=== PATIENT | female | born 1940 | race Caucasian/White ===

== ENCOUNTER 2023-09-04 14:43 | Outpatient (RCR) | payer MEDICARE, OTHER, SELFPAY | END 2023-09-27 14:00 | disposition home or self-care (01) | LOC: MM 14:43 | PROVIDERS: PCP Family Medicine; Visit Provider Internal Medicine | DX: Z51.81 Encounter for therapeutic drug level monitoring (principal); Z79.01 Long term (current) use of anticoagulants; I48.20 Chronic atrial fibrillation, unspecified | CPT/HCPCS: 85610; G0463 ==

== ENCOUNTER 2023-09-30 00:17 | Outpatient (RCR) | payer MEDICARE, OTHER, SELFPAY | END 2023-10-29 17:58 | disposition home or self-care (01) | LOC: MM 00:17 | PROVIDERS: PCP Family Medicine; Visit Provider Internal Medicine | DX: Z51.81 Encounter for therapeutic drug level monitoring (principal); Z79.01 Long term (current) use of anticoagulants; I48.20 Chronic atrial fibrillation, unspecified | CPT/HCPCS: 85610; G0463 ==

== ENCOUNTER 2023-10-30 04:37 | Outpatient (RCR) | payer MEDICARE, OTHER, SELFPAY | END 2023-11-29 11:54 | disposition home or self-care (01) | LOC: MM 04:37 | PROVIDERS: PCP Family Medicine; Visit Provider Internal Medicine | DX: Z51.81 Encounter for therapeutic drug level monitoring (principal); Z79.01 Long term (current) use of anticoagulants; I48.20 Chronic atrial fibrillation, unspecified | CPT/HCPCS: 85610; G0463 ==

== ENCOUNTER 2023-12-02 03:30 | Outpatient (RCR) | payer MEDICARE, OTHER, SELFPAY | END 2023-12-27 11:07 | disposition home or self-care (01) | LOC: MM 03:30 | PROVIDERS: PCP Family Medicine; Visit Provider Internal Medicine | DX: Z51.81 Encounter for therapeutic drug level monitoring (principal); Z79.01 Long term (current) use of anticoagulants; I48.20 Chronic atrial fibrillation, unspecified | CPT/HCPCS: 85610; G0463 ==

== ENCOUNTER 2023-12-30 00:31 | Outpatient (RCR) | payer MEDICARE, OTHER, SELFPAY | END 2024-01-29 10:12 | disposition home or self-care (01) | LOC: MM 00:31 | PROVIDERS: PCP Family Medicine; Visit Provider Internal Medicine | DX: Z51.81 Encounter for therapeutic drug level monitoring (principal); Z79.01 Long term (current) use of anticoagulants; I48.20 Chronic atrial fibrillation, unspecified | CPT/HCPCS: 85610; G0463 ==

== ENCOUNTER 2024-01-30 00:37 | Outpatient (RCR) | payer MEDICARE, OTHER, SELFPAY | END 2024-02-28 10:17 | disposition home or self-care (01) | LOC: MM 00:37 | PROVIDERS: PCP Family Medicine; Visit Provider Internal Medicine | DX: Z51.81 Encounter for therapeutic drug level monitoring (principal); Z79.01 Long term (current) use of anticoagulants; I48.20 Chronic atrial fibrillation, unspecified | CPT/HCPCS: 85610; G0463 ==

== ENCOUNTER 2024-03-02 01:43 | Outpatient (RCR) | payer MEDICARE, OTHER, SELFPAY | END 2024-03-30 23:57 | disposition home or self-care (01) | LOC: MM 01:43 | PROVIDERS: PCP Family Medicine; Visit Provider Internal Medicine | DX: Z51.81 Encounter for therapeutic drug level monitoring (principal); Z79.01 Long term (current) use of anticoagulants; I48.20 Chronic atrial fibrillation, unspecified | CPT/HCPCS: 85610; G0463 ==

== ENCOUNTER 2024-03-10 20:33 | Emergency (ER) | payer MEDICARE, OTHER, SELFPAY ==
--- OUTSIDE RECORDS SUMMARY | 2024-03-10 20:44 | XMS_ITS | CCD ---
Author Organization [facility] Care Team Providers Care Substance Addiction Coordinator Name Role Phone JOSE MANUEL BEAUCHAMP Unavailable Unavailable MILTONEREEMRE Harry Unavailable Unavailabl e MiltonereEmre harry Unavailable Unavailable Unavailable MINDY, DR EMRE Naqvi Primary Care Unavailable BURNETT, DR STACY Herbert Admitting Unavailable BURNETT, DR STACY Herbert Attending Unavailable BURNETT, DR STACY Herbert Consulting Unavailable LAKSHMI, MICHELLE Consulting Unavailable DERROW, ROB Consulting Unavailable NADERER, DR EMRE Naqvi Admitting Unavailable NADERER, DR EMRE Naqvi Attending Unavailable NADERER, DR EMRE Naqvi Primary Care Unavailable NADERER, DR EMRE Naqvi Consulting Unavailable NADERER, DR EMRE Naqvi Admitting Unavailable NADERER, DR EMRE Naqvi Attending Unavailable NADERER, DR EMRE Naqvi Primary Care Unavailable NADERER, DR EMRE Naqvi Consulting Unavailable Naderer, Dr. Emre Sandoval Primary Care Anabelle Benitez II, Hero Grover Referring Unav ailable Sofía II, Hero Grover Attending Unav ailable Emre Guillen MD Primary Care Provider HERO BENITEZ Attending Unavailable NADEREEMRE Harry Primary Care Unavailabl e RIVER, HERNAN N Referring Unavailable NADERER, EMRE Primary Care Unavailable RIVERHERNAN Attending Unavailable NADEREEMRE Harry Referring Unavailable NADEREPiero, EMRE Primary Care Unavailable NADEREPiero, EMRE Primary Care Unavailable HERNAN HOLMAN N Attending Unavailable NADEREEMRE Harry Referring Unavailable NADERER, EMRE Primary Care Unavailable PREET BRANNON Attending Unavailable APLPREET RICHARD Referring Unavailable NADERER, EMRE Attending Unavailable MALONE, DARYL Attending Unavailable NADERER, EMRE Attending Unavailable LINDY MINA Attending Unavailable MALONEDARYL Referring Unavailable NADERER, EMRE Attending Unavailable NADERER, EMRE Attending Unavailable NADERER, EMRE Attending Unavailable Allergies Allergy Classification Reported Allergen(s) Allergy Type Date of Onset Reaction(s) Facility (10 sources) Sulfonamides (Antibiotic); Translations: [Sulfa Drugs] Allergy to drug (finding) Anaphylaxis -[facility] y [facility] DO Work Phone: (1 source) Sulfonamides (Antibiotic) Drug allergy (disorder) [facility] (3 sources) Sulfonamides (Antibiotic); Translations: [SULFA (SULFONAMIDE ANTIBIOTICS)] Drug Allergy 8 Anaphylaxis, Dizziness [facility] (1 source) ADHESIVE TAPE-SILICONES; Translations: [ADHESIVE TAPE-SILICONES] Propensity to adverse reactions to drug (disorder) 8 [facility] Medications Current Medications Medication Drug Class(es) Dates Sig (Normalized) Sig (Original) [id number] actuat albuterol 0.09 mg/actuat metered dose inhaler (11 sources) beta2-Adrenergic Agonist take 2 puff(s) by inhalation every four hours albuterol 90 mcg/actuation inhaler Inhale 2 puffs every 4 hours if needed. 0 Active Albuterol Sulfat e HFA 108 (90 Base) MCG/ACT Inhalation Aerosol Solution as directed Quantity: 0 Refills: 0 Ordered: 09-May-2021 DO Active Albuterol Sulfat e HFA 108 (90 Base) MCG/ACT Inhalation Aerosol Solution as directed Quantity: 0 Refills: 0 Ordered: 09-May-2021 DO Active amLODIPine 2.5 mg oral tablet (13 sources) Dihydropyridine Calcium Channel Edenilson Start: 05-14-2023 take 1 tablet by mouth once daily amLODIPine (Norvasc) 2.5 mg tablet Indications: Primary hypertension , Hypertension, unspecified type Take 1 tablet (2.5 mg) by mouth once daily. 90 tablet 3 05/14/2023 Active Start: 05-09-2021 End: 05-14-2023 take 1 tablet by mouth once daily amLODIPine (Norvasc) 2.5 mg tablet Indications: Hypertension, unspecified type Take 1 tablet by mouth once daily 90 tablet 3 04/22/2023 05/14/2023 Discontinued (Reorder) aspirin 81 mg delayed release oral tablet (11 sources) Platelet Aggregation Inhibitor, Nonsteroidal Anti-inflammatory Drug take 1 tablet by mouth two times weekly aspirin 81 mg EC tablet Take 1 tablet (81 mg) by mouth 2 times a week. 0 Active carbidopa 25 mg / levodopa 100 mg oral tablet (11 sources) Aromatic Amino Acid Decarboxylation Inhibitor, Aromatic Amino Acid take 1 tablet by mouth three times daily carbidopa-levodopa (Sinemet) 25-100 mg tablet Take 1 tablet by mouth 3 times a day. 0 Active fenofibrate 145 mg oral tablet (11 sources) Peroxisome Proliferator Receptor alpha Agonist take 1 tablet by mouth once daily at bedtime fenofibrate (Tricor) 145 mg tablet Take 1 tablet (145 mg) by mouth once daily at bedtime. 0 Active ferrous sulfate 134 mg oral tablet (1 source) take 1 tablet by mouth once daily at mealtime ferrous sulfate 134 mg (27 mg iron) tablet Take 1 tablet (27 mg) by mouth once daily with a meal. Do not crush, chew, or split. 0 Active FLUoxetine 20 mg oral capsule (4 sources) Serotonin Reuptake Inhibitor Start: 12-17-19 take 1 capsule by mouth once daily FLUoxetine (PROzac) 20 mg capsule Take 1 capsule (20 mg) by mouth once daily. 0 12/16/2022 Active take 1 capsule by mouth once jaspreet ly FLUoxetine HCl - 20 MG Oral Capsule TAKE 1 CAPSULE Daily Quantity: 90 Refills: 1 Ordered: 15-May-2022 DO Active furosemide 40 mg oral tablet (4 sources) Loop Diuretic Start: 10-29-2022 take 1 tablet by mouth once daily furosemide (Lasix) 40 mg tablet Take 1 tablet (40 mg) by mouth once daily. 0 10/29/2022 Active take 1 tablet by mouth once miguel y Furosemide 40 MG Oral Tablet TAKE 1 TABLET DAILY. Quantity: 30 Refills: 0 Ordered: 15-May-2022 DO Active gabapentin 600 mg oral tablet (11 sources) Anti-epileptic Agent take 1 tablet by mouth twice daily gabapentin (Neurontin) 600 mg tablet Take 1 tablet (600 mg) by mouth 2 times a day. 0 Active take 1 tablet by mouth three maggi es daily Gabapentin 600 MG Oral Tablet TAKE 1 TABLET 3 TIMES DAILY. Quantity: 0 Refills: 0 Ordered: 09-May-2021 DO Active glipiZIDE 10 mg oral tablet (12 sources) Sulfonylurea End: 05-14-2023 take 1 tablet by mouth once daily glipiZIDE (Glucotrol) 10 mg tablet Take 1 tablet (10 mg) by mouth once daily. 0 05/14/2023 Discontinued (Discontinued by another clinician) take 1 tablet by mouth once miguel y glipiZIDE XL (Glucotrol XL) 2.5 mg 24 hr tablet Take 1 tablet (2.5 mg) by mouth once daily. Do not crush, chew, or split. 0 Active take 2 tablets by mo uth in the morning, then take 1 tablet by mouth in the evening glipiZIDE 10 MG Oral Tablet take 2 table ts am and one tablet pm Quantity: 0 Refills: 0 Ordered: 09-May-2021 DO Active levothyroxine sodium 0.125 mg oral capsule (11 sources) l-Thyroxine take 1 tablet by mouth once daily levothyroxine (Tirosint) 125 mcg capsule Take 1 tablet by mouth once daily. 0 Active loratadine 10 mg oral tablet (1 source) take 1 tablet by mouth every twenty-four hours as needed loratadine (Claritin) 10 mg tablet Take 1 tablet (10 mg) by mouth once daily as needed for allergies. 0 Active meloxicam 15 mg oral tablet (11 sources) Nonsteroidal Anti-inflammatory Drug take 1 tablet by mouth once daily meloxicam (Mobic) 15 mg tablet Take 1 tablet (15 mg) by mouth once daily. 0 Active 24 hr metFORMIN hydrochloride 500 mg extended release oral tablet (11 sources) Biguanide take 1 tablet by mouth twice daily metFORMIN XR 500 mg 24 hr tablet Take 1 tablet (500 mg) by mouth 2 times a day. 0 Active nitroglycerin 0.4 mg sublingual tablet (12 sources) Nitrate Vasodilator Start: 05-14-20 nitroglycerin (Nitrostat) 0.4 mg SL tablet Indications: Status post angioplasty Place 1 tablet (0.4 mg) under the tongue every 5 minutes if needed for chest pain. 90 tablet 3 05/14/2023 Active End: 05-14-2023 nitroglycerin (Nitrostat) 0. [address] 1 tablet (0.4 mg) under the tongue every 5 minutes if needed for chest pain. 0 05/14/2023 Discontinued (Reorder) pioglitazone 45 mg oral tablet (4 sources) Peroxisome Proliferator Receptor alpha Agonist, Peroxisome Proliferator Receptor gamma Agonist, Thiazolidinedione Start: 10-29-2022 take 1 tablet by mouth once daily pioglitazone (Actos) 45 mg tablet Take 1 tablet (45 mg) by mouth once daily. 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 90 tablet 3 05/14/2023 05/13/2024 Active simvastatin 20 mg oral tablet (11 sources) HMG-CoA Reductase Inhibitor take 1 tablet by mouth once daily at bedtime simvastatin (Zocor) 20 mg tablet Take 1 tablet (20 mg) by mouth once daily at bedtime. 0 Active traMADol hydrochloride 50 mg oral tablet (11 sources) Opioid Agonist End: 05-14-2023 take 1 tablet by mouth twice daily traMADol (Ultram) 50 mg tablet Take 1 tablet (50 mg) by mouth 2 times a day. 0 05/14/2023 Discontinued (Discontinued by another clinician) traZODone hydrochloride 50 mg oral tablet (11 sources) Serotonin Reuptake Inhibitor traZODone (Desyrel) 50 mg tablet Take 1 tablet (50 mg) by mouth see administration instructions. As directed 0 Active traZODone HCl - 50 MG Oral Tablet take as needed Quantity: 0 Refills: 0 Ordered: 09-May-2021 DO Active vitamin b12 1 mg oral tablet (1 source) Vitamin B12 cyanocobalamin ( Vitamin B-12) 1,000 mcg tablet Take 100 mcg by mouth once daily. 0 Active Completed/Discontinued Medications Medication Drug Class(es) Dates Sig (Normalized) Sig (Original) cholecalciferol 0.025 mg oral capsule (3 sources) Vitamin D take 1 capsule by mouth once daily Vitamin D3 25 MCG (1000 UT) Oral Capsule TAKE 1 CAPSULE Daily Quantity: 0 Refills: 0 Ordered: 15-May-2022 DO Active docusate sodium 100 mg oral tablet (3 sources) take 1 tablet by mouth once daily Stool Softener 100 MG Oral Tablet TAKE 1 TABLET DAILY DIRECTED. Quantity: 0 Refills: 0 Ordered: 15-May-2022 DO Active ferrous gluconate 240 mg oral tablet (3 sources) take 1 tablet by mouth once daily Iron 240 (27 Fe) MG Oral Tablet TAKE 1 TABLET DAILY DIRECTED. Quantity: 0 Refills: 0 Ordered: 15-May-2022 DO Active hydrocortisone 25 mg/ml topical cream (7 sources) Corticosteroid Hydrocortisone 2 .5 % External Cream APPLY TO AFFECTED AREA TWICE DAILY DIRECTED. Quantity: 0 Refills: 0 Ordered: 09-May-2021 DO Active lisinopril 10 mg oral tablet (11 sources) Angiotensin Converting Enzyme Inhibitor Start: 05-09-2021 take 1 tablet by mouth once daily Lisinopril 10 MG Oral Tablet TAKE 1 TABLET DAILY. Quantity: 90 Refills: 3 Ordered: 15-May-2022 Hero Benitez MD Start : 09-May-2021 Active Vitamin B 12 TABS (10 sources) Vitamin B 12 TAB S TAKE 1 TABLET DAILY. Quantity: 0 Refills: 0 Ordered: 09-May-2021 DO Active Problems Active Problems Problem Classification Problem Date Documented Da te Episodic/Chronic Acute myocardial infarction (1 source) Non-ST elevation (NSTEMI) myocardial infarction; Translations: [NON-ST ELEVATION MYOCARDIAL INFARCT] Onset: 05-08-2021 Chronic Asthma (12 sources) Asthma; Translations: [Asthma, unspecified type, unspecified] Onset: 05-08-2021 04-22-2023 Chronic Cancer of colon (1 source) Malignant neoplasm of transverse colon; Translations: [Malignant neoplasm of transverse colon] Onset: 05-02-2018 Chronic Cardiac dysrhythmias (12 sources) Persistent atrial fibrillation; Translations: [Atrial fibrillation] Onset: 04-22-2023 05-14-2023 Chronic Chronic kidney disease (1 source) Chronic kidney disease, stage 2 (mild); Translations: [CHRONIC KIDNEY DISEASE STAGE 2 MILD] Onset: 05-08-2021 Chronic Coronary atherosclerosis and other heart disease (20 sources) Old myocardial infarction; Translations: [Old myocardial infarction] Onset: 05-08-2021 05-14-2023 Chronic Deficiency and other anemia (1 source) Iron deficiency anemia secondary to blood loss (chronic); Translations: [Iron deficiency anemia secondary to blood loss (chronic)] Onset: 03-01-2021 Chronic Delirium, dementia, and amnestic and other cognitive disorders (1 source) Unspecified dementia without behavioral disturbance; Translations: [[facility] W/O BEHAVIORAL DIST] Onset: 05-08-2021 Chronic Diabetes mellitus with complications (10 sources) Type 2 diabetes mellitus with hyperglycemia; Translations: [Type 2 diabetes mellitus with hypoglycemia without coma] Onset: 04-01-2021 Chronic Diabetes mellitus with complications (1 source) Diabetes mellitus with complications Onset: 03-24-2018 Diabetes mellitus without complication (11 sources) Diabetes mellitus; Translations: [Diabetes mellitus without mention of complication, type II or unspecified type, not stated as uncontrolled] Onset: 04-22-2023 04-22-2023 Chronic Disorders of lipid metabolism (17 sources) Hyperlipidemia; Translations: [Other and unspecified hyperlipidemia] Onset: 05-08-2021 05-14-2023 Chronic Essential hypertension (16 sources) Hypertensive disorder; Translations: [Unspecified essential hypertension] Onset: 04-22-2023 05-14-2023 Chronic Essential hypertension (1 source) Essential hypertension Onset: 03-24-2018 Hypertension with complications and secondary hypertension (1 source) Hypertensive chronic kidney disease with stage 1 through stage 4 chronic kidney disease, or unspecified chronic kidney disease; Translations: [HTN CKD W/STAGE 1-4 CKD/UNS CKD] Onset: 05-08-2021 Chronic Immunizations and screening for infectious disease (3 sources) Patient encounter status; Translations: [Other specified vaccination] Episodic Nutritional deficiencies (1 source) Vitamin D deficiency, unspecified; Translations: [VITAMIN D DEFICIENCY UNSPECIFIED] Onset: 12-14-2021 Chronic Osteoarthritis (1 source) Unspecified osteoarthritis, unspecified site; Translations: [UNSPECIFIED OSTEOARTHRITIS UNS SITE] Onset: 05-08-2021 Chronic Other aftercare (2 sources) Other retirement (current) drug therapy; Translations: [OTH WHEEL GRINDER CURRENT DRUG THERAPY] Onset: 05-08-2021 Episodic Other circulatory disease (12 sources) Patient post angioplasty; Translations: [Other postprocedural status] Onset: 04-22-2023 05-14-2023 Episodic Other circulatory disease (2 sources) Peripheral vascular angioplasty status; Translations: [Peripheral vascular angioplasty status] Onset: 04-22-2023 Episodic Other nutritional; endocrine; and metabolic disorders (10 sources) Obesity; Translations: [Obesity, unspecified] Chronic Other nutritional; endocrine; and metabolic disorders (2 sources) Obesity, unspecified; Translations: [OBESITY UNSPECIFIED] Onset: 12-14-2021 Chronic Screening and history of mental health and substance abuse codes (11 sources) Ex-smoker; Translations: [Personal history of tobacco use] Onset: 05-08-2021 Episodic Comment on above: Quit 2007; Thyroid disorders (12 sources) Hypothyroidism; Translations: [Unspecified acquired hypothyroidism] Onset: 05-08-2021 04-22-2023 Chronic Unclassified (1 source) Pure hypercholesterolemia , unspecified / E78.00(ICD-9) Onset: 03-24-2018 Unclassified (1 source) Old myocardial infarction / I25.2(ICD-9) Onset: 03-24-2018 Unclassified (1 source) Shortness of breath / R06.02(ICD-9) Onset: 03-24-2018 Unclassified (2 sources) Encounter for preprocedural cardiovascular examination / Z01.810(ICD-9) Onset: 03-24-2018 Unclassified (1 source) Athscl heart disease of [place]am[place] coronary artery w/o ang pctrs / I25.10(ICD-9) Onset: 03-24-2018 Unclassified (1 source) Family hx of ischem heart dis and oth dis of the circ sys / Z82.49(ICD-9) Onset: 03-24-2018 Unclassified (1 source) Coronary angioplasty status / Z98.61(ICD-9) Onset: 03-24-2018 Unclassified (1 source) Personal history of nicotine dependence / Z87.891(ICD-9) Onset: 03-24-2018 Unclassified (1 source) Difficulty in walking, not elsewhere classified / R26.2(ICD-9) Onset: 03-24-2018 Unclassified (1 source) retirement (current) use of oral hypoglycemic drugs / Z79.84(ICD-9) Onset: 03-24-2018 Unclassified (1 source) CONTACT W/AND (SUSP) EXPOS COVID-19; Translations: [CONTACT W/AND (SUSP) EXPOS COVID-19] Onset: 05-08-2021 Unclassified (2 sources) Other persistent atrial fibrillation; Translations: [Other persistent atrial fibrillation (CMS/HCC)] Onset: 04-22-2023 Past or Other Problems Problem Classification Problem Date Documented Date Episodic/Chronic Deficiency and other anemia (1 source) Anemia, unspecified; Translations: [ANEMIA UNSPECIFIED] Onset: 05-08-2021 Episodic E Codes: Adverse effects of medical drugs (1 source) Adverse effect of insulin and oral hypoglycemic [antidiabetic] drugs, initial encounter; Translations: [ADVERS EFF INSULIN ORAL HG RX INIT] Onset: 05-08-2021 Episodic Other aftercare (1 source) terminal gauger (current) use of aspirin; Translations: [WHEEL GRINDER CURRENT USE OF ASPIRIN] Onset: 05-08-2021 Episodic Other aftercare (1 source) terminal gauger (current) use of oral hypoglycemic drugs; Translations: [NURSING HOME USE ORAL HYPOGLYCEMIC DX] Onset: 05-08-2021 Episodic Other aftercare (1 source) retirement (current) use of anticoagulants; Translations: [WHEEL GRINDER CURRNT USE ANTICOAGULANTS] Onset: 05-08-2021 Episodic Other lower respiratory disease (1 source) Shortness of breath Onset: 07-26-2023 Episodic Residual codes; unclassified (1 source) Do not resuscitate; Translations: [DO NOT RESUSCITATE] Onset: 05-08-2021 Episodic Unclassified (1 source) Encounter for preprocedural cardiovascular examination; Translations: [Encounter for preprocedural cardiovascular examination] Onset: 03-24-2018 Unclassified (1 source) Onset: 05-14-2023 05-14-2023 Results Test Name Value Interpretation Reference Range Facility CBC AND AUTO DIFFon 10-29-19 ABSOLUTE BASOPHIL 0.0 X10E9/L Normal 0.0-0.2 [facility] Comment on above: Performed By: #### C BCA, HA1C, CMP, FEPR, 09379-4, LIVR, , 3016-3, 2276-4 #### [facility] ([id number]) [address] [place] [address] ABSOLUTE NEUTROPHIL 1.9 X10E9/L Normal 1.5-6.6 [facility] Comment on above: Performed By: #### C BCA, HA1C, CMP, FEPR, 74328-4, LIVR, , 3016-3, 2276-4 #### [facility] ([id number]) [address], [address] [place] [address] Basophils/100 WBC (Bld) 1.2 % Normal [facility] Comment on above: Performed By: #### C BCA, HA1C, CMP, FEPR, 17870-9, LIVR, 2038- 6, 3016-3, 2276-4 #### [facility] ([id number]) [address] [place] [address] Eosinophils (Bld) [#/Vol] 0.2 10*3/uL Normal 0.0-0.4 [facility] Comment on above: Performed By: #### C BCA, HA1C, CMP, FEPR, 81144-1, LIVR, 2038- 6, 6-3, 6-4 #### [facility] ([id number]) [address] [place] [address] Eosinophils/100 WBC (Bld) 4.3 % Normal [facility] Comment on above: Performed By: #### C BCA, HA1C, CMP, FEPR, 67888-2, LIVR, 2038- 6, 6-3, 6-4 #### [facility] ([id number]) [address] [place] [address] Erythrocyte distribution width (RBC) [Ratio] 17.0 % High 11.5-15.0 [facility] Comment on above: Performed By: #### C BCA, HA1C, CMP, FEPR, 50021-0, LIVR, 2038- 6, 3016-3, 2276-4 #### [facility] ([id number]) [address] [place] [address] Hematocrit (Bld) [Volume fraction] 32.1 % Low 35-47 [facility] Comment on above: Performed By: #### C BCA, HA1C, CMP, FEPR, 61183-8, LIVR, 2038- 6, 3016-3, 2276-4 #### [facility] ([id number]) [address], [address] [place] [address] Hemoglobin (Bld) [Mass/Vol] 10.8 g/dL Low 11.7-15.5 [facility] Comment on above: Performed By: #### C BCA, HA1C, CMP, FEPR, 48479-6, LIVR, , 3015-3, 2275-4 #### [facility] ([id number]) [address], [address] [place] [address] Lymphocytes (Bld) [#/Vol] 1.5 10*3/uL Normal 1.0-3.5 [facility] Comment on above: Performed By: #### C BCA, HA1C, CMP, FEPR, 32701-4, LIVR, , 3015-3, 2275-4 #### [facility] ([id number]) [address], [address] [place] [address] Lymphocytes/100 WBC (Bld) 36.6 % Normal [facility] Comment on above: Performed By: #### C BCA, HA1C, CMP, FEPR, 24349-4, LIVR, , 3015-3, 2275-4 #### [facility] ([id number]) [address], [address] [place] [address] MCH (RBC) [Entitic mass] 28.3 pg Normal 27-34 [facility] Comment on above: Performed By: #### C BCA, HA1C, CMP, FEPR, 67688-7, LIVR, 2038- , 3015-3, 2275-4 #### [facility] ([id number]) [address] [place] [address] MCHC (RBC) [Mass/Vol] 33.5 g/dL Normal 32-36 [facility] Comment on above: Performed By: #### C BCA, HA1C, CMP, FEPR, 37043-1, LIVR, 9- 6, 3016-3, 2276-4 #### [facility] ([id number]) [address], [address] [place] [address] MCV (RBC) [Entitic vol] 84 fL Normal 80-100 [facility] Comment on above: Performed By: #### C BCA, HA1C, CMP, FEPR, 50588-3, LIVR, 2038- 6, 3016-3, 2276-4 #### [facility] ([id number]) [address], [address] [place] [address] Monocytes (Bld) [#/Vol] 0.5 10*3/uL Normal 0-0.9 [facility] Comment on above: Performed By: #### C BCA, HA1C, CMP, FEPR, 33702-8, LIVR, 2038- 6, 3016-3, 6-4 #### [facility] ([id number]) [address], [address] [place] [address] Monocytes/100 WBC (Bld) 12.9 % Normal [facility] Comment on above: Performed By: #### C BCA, HA1C, CMP, FEPR, 40558-8, LIVR, 2038- 6, 6-3, 2276-4 #### [facility] ([id number]) [address], [address] [place] [address] Neutrophils/100 WBC (Bld) 45.0 % Normal [facility] Comment on above: Performed By: #### C BCA, HA1C, CMP, FEPR, 40729-3, LIVR, 9- 6, 3016-3, 2276-4 #### [facility] ([id number]) [address], [address] [place] [address] Platelet mean volume (Bld) [Entitic vol] 10.7 fL Normal 7-12 [facility] Comment on above: Performed By: #### C BCA, HA1C, CMP, FEPR, 89608-8, LIVR, 2039- 6, 3016-3, 2276-4 #### [facility] ([id number]) [address], [address] [place] [address] Platelets (Bld) [#/Vol] 150 10*3/uL Normal 150-450 [facility] Comment on above: Performed By: #### C BCA, HA1C, CMP, FEPR, 26437-4, LIVR, 2039- 6, 3016-3, 2276-4 #### [facility] ([id number]) [address] [place] [address] RBC COUNT 3.81 X10E12/L Normal 3.80-5.20 [facility] Comment on above: Performed By: #### C BCA, HA1C, CMP, FEPR, 37543-4, LIVR, 2039- 6, 3016-3, 2276-4 #### [facility] ([id number]) [address] [place] [address] WBC (Bld) [#/Vol] 4.1 10*3/uL Normal 4.0-11.0 [facility] Comment on above: Performed By: #### C BCA, HA1C, CMP, FEPR, 61887-8, LIVR, 9- 6, 3016-3, 2276-4 #### [facility] ([id number]) [address], [address] [place] [address] COMPREHENSIVE METABOLIC PANE Adriel 10-29-2023 Albumin [Mass/Vol] 4.1 g/dL Normal 3.2-5.3 [facility] Comment on above: Performed By: #### C BCA, HA1C, CMP, FEPR, 65404-6, LIVR, 2039- 6, 3016-3, 2276-4 #### [facility] ([id number]) [address], [address] [place] [address] ALP [Catalytic activity/Vol] 20 U/L Low 39-130 [facility] Comment on above: Performed By: #### C BCA, HA1C, CMP, FEPR, 78451-9, LIVR, 2038- 6, 3016-3, 2276-4 #### [facility] ([id number]) [address], [address] [place] [address] ALT [Catalytic activity/Vol] 3 U/L Normal 0-31 [facility] Comment on above: Performed By: #### C BCA, HA1C, CMP, FEPR, 58703-7, LIVR, 2038- 6, 3016-3, 2276-4 #### [facility] ([id number]) [address], [address] [place] [address] Anion gap [Moles/Vol] 7 mmol/L Normal 5-15 [facility] Comment on above: Performed By: #### C BCA, HA1C, CMP, FEPR, 26157-5, LIVR, 2038- 6, 3016-3, 2276-4 #### [facility] ([id number]) [address], [address] [place] [address] AST [Catalytic activity/Vol] 20 U/L Normal 0-41 [facility] Comment on above: Performed By: #### C BCA, HA1C, CMP, FEPR, 47225-9, LIVR, 2038- 6, 3016-3, 2276-4 #### [facility] ([id number]) [address], [address] [place] [address] Bilirubin [Mass/Vol] 0.4 mg/dL Normal 0.3-1.2 [facility] Comment on above: Performed By: #### C BCA, HA1C, CMP, FEPR, 88321-8, LIVR, 2038- 6, 3016-3, 2276-4 #### [facility] ([id number]) [address], [address] [place] [address] Calcium [Mass/Vol] 10.0 mg/dL Normal 8.5-10.5 [facility] Comment on above: Performed By: #### C BCA, HA1C, CMP, FEPR, 98245-4, LIVR, 9- 6, 3016-3, 2276-4 #### [facility] ([id number]) [address], [address] [place] [address] Chloride [Moles/Vol] 103 mmol/L Normal 98-109 [facility] Comment on above: Performed By: #### C BCA, HA1C, CMP, FEPR, 44865-2, LIVR, 2038- 6, 3016-3, 2276-4 #### [facility] ([id number]) [address], [address] [place] [address] CO2 [Moles/Vol] 33 mmol/L High 22-32 [facility] Comment on above: Performed By: #### C BCA, HA1C, CMP, FEPR, 91555-1, LIVR, 9- 6, 3016-3, 2276-4 #### [facility] ([id number]) [address], [address] [place] [address] Creatinine [Mass/Vol] 1.80 mg/dL High 0.40-1.00 [facility] Comment on above: Result Comment: METH OD TRACEABLE TO IDMS STANDARD Performed By: #### C BCA, HA1C, CMP, FEPR, 76337-6, LIVR, 2038-6, 3016-3, 2276-4 #### [facility] ([id number]) [address] [address] [place] [address] GFR/1.73 sq M.predicted among non-blacks MDRD (S/P/Bld) [Vol rate/Area] 28 mL/min/{1.73_m2} Low >59 [facility] Comment on above: Result Comment: Reported eGFR is based on the CKD-EPI 2020 equation that does not use a race coefficient. Performed By: #### C BCA, HA1C, CMP, FEPR, 72106-8, LIVR, 2038-6, 3016-3, 2276-4 #### [facility] ([id number]) [address], [address] [place] [address] Glucose [Mass/Vol] 58 mg/dL Low 65-99 [facility] Comment on above: Performed By: #### C BCA, HA1C, CMP, FEPR, 97875-1, LIVR, 2038- 6, 6-3, 2276-4 #### [facility] ([id number]) [address], [address] [place] [address] Potassium [Moles/Vol] 4.3 mmol/L Normal 3.5-5.0 [facility] Comment on above: Performed By: #### C BCA, HA1C, CMP, FEPR, 78784-8, LIVR, , 6-3, 6-4 #### [facility] ([id number]) [address], [address] [place] [address] Protein [Mass/Vol] 6.8 g/dL Normal 6.0-8.0 [facility] Comment on above: Performed By: #### C BCA, HA1C, CMP, FEPR, 03867-4, LIVR, 2038- 6, 6-3, 6-4 #### [facility] ([id number]) [address], [address] [place] [address] Sodium [Moles/Vol] 143 mmol/L Normal 134-146 [facility] Comment on above: Performed By: #### C BCA, HA1C, CMP, FEPR, 37455-7, LIVR, 2038- 6, 3016-3, 2276-4 #### [facility] ([id number]) [address], [address] [place] [address] Urea nitrogen [Mass/Vol] 37 mg/dL High 5-27 [facility] Comment on above: Performed By: #### C BCA, HA1C, CMP, FEPR, 34180-9, LIVR, , 6-3, 6-4 #### [facility] ([id number]) [address], [address] [place] [address] Carcinoembryonic Ag [Mass/Vo l]on 10-29-2023 CEA 2.6 ng/mL Normal 0.0-3.0 [facility] Comment on above: Result Comment: 0.0-3.0 ng/mL FOR NON SMOKERS 0.0-5.0 ng/mL FOR SMOKERS The method used for this test is Umberto Solfo DXI chemiluminescent immunoassay. Values obtained by different assay methods cannot be used interchangeably. Performed By: #### C BCA, HA1C, CMP, FEPR, 11916-1, LIVR, 2038-11, 3015-3, 6-4 #### [facility] ([id number]) [address], [address] [place] [address] FERRITINon 10-29-2023 Ferritin [Mass/Vol] 70 ng/mL Normal 11-307 [facility] Comment on above: Performed By: #### C BCA, HA1C, CMP, FEPR, 25150-5, LIVR, , 3015-3, 6-4 #### [facility] ([id number]) [address], [address] [place] [address] HGB A1C (GLYCO-HGB)on 2023 Glucose [Mass/Vol] 126 mg/dL Normal [facility] Comment on above: Performed By: #### C BCA, HA1C, CMP, FEPR, 49639-7, LIVR, , 3016-3, 2276-4 #### [facility] ([id number]) [address] [address] [place] [address] HbA1c (Bld) [Mass fraction] 6.0 % High 4.4-5.6 [facility] Comment on above: Result Comment: NOTE ADA Guidelines Result HgbA1c Normal : less than 5.7 % Prediabetes : 5.7 % to 6.4 % Diabetes : > 6.4 % Use with caution in patients with abnormal hemoglobin variants as the half-life of red blood cells and in vivo glycation rates are affected. Performed By: #### C BCA, HA1C, CMP, FEPR, 32550-1, LIVR, 2038-6, 3015-3, 2275-4 #### [facility] ([id number]) [address], [address] [place] [address] IRON PROFILEon 10-29-2023 Iron [Mass/Vol] 66 ug/dL Normal 50-170 [facility] Comment on above: Performed By: #### C BCA, HA1C, CMP, FEPR, 20100-6, LIVR, 2038- 6, 3015-3, 2275-4 #### [facility] ([id number]) [address], [address] [place] [address] IRON BINDING 469 ug/dL High 250-425 [facility] Comment on above: Performed By: #### C BCA, HA1C, CMP, FEPR, 42459-3, LIVR, 2038- 6, 6-3, 6-4 #### [facility] ([id number]) [address] [address] [place] [address] IRON SATURATION 14 % SATURATION Low 15-50 [facility] Comment on above: Performed By: #### C BCA, HA1C, CMP, FEPR, 53969-1, LIVR, 2038- 6, 3015-3, 2276-4 #### [facility] ([id number]) [address], [address] [place] [address] LIVER PANELon 10-29-2023 Bilirubin.direct [Mass/Vol] 0.1 mg/dL Normal 0.0-0.4 [facility] Comment on above: Performed By: #### C BCA, HA1C, CMP, FEPR, 18556-0, LIVR, , 3015-3, 6-4 #### [facility] ([id number]) [address] [facility] [place] [address] Lipid 1996 panelon Cholesterol [Mass/Vol] 142 mg/dL Low 150-200 [facility] Comment on above: Performed By: #### C BCA, HA1C, CMP, FEPR, 40150-1, LIVR, , 3, 2275-4 #### [facility] ([id number]) [address], [address] [place] [address] Cholesterol in HDL [Mass/Vol] 51 mg/dL Normal >39 [facility] Comment on above: Result Comment: HDL <40 mg/dL - High Risk HDL > or = 40mg/dL- Desirable HDL >60 mg/dL - Negative Risk Performed By: #### C BCA, HA1C, CMP, FEPR, 14557-1, LIVR, 2038-11, 3, 2275-4 #### [facility] ([id number]) [address], [address] [place] [address] Cholesterol in LDL [Mass/Vol] 66 mg/dL Normal <130 [facility] Comment on above: Result Comment: LDL <100 mg/dL - Desirable LDL >160 mg/dL - High Risk Performed By: #### C BCA, HA1C, CMP, FEPR, 26433-1, LIVR, 2038-6, 3016-3, 2276-4 #### [facility] ([id number]) [address], [address] [place] [address] Cholesterol in VLDL [Mass/Vol] 25 mg/dL Normal 0-30 [facility] Comment on above: Performed By: #### C BCA, HA1C, CMP, FEPR, 43065-8, LIVR, 2038- 6, 3016-3, 2276-4 #### [facility] ([id number]) [address], [address] [place] [address] CHOLESTEROL:HDL 2.8 Normal 1.0-5.0 [facility] Comment on above: Performed By: #### C BCA, HA1C, CMP, FEPR, 74450-4, LIVR, 2038- 6, 6-3, 2276-4 #### [facility] ([id number]) [address], [address] [place] [address] Triglyceride [Mass/Vol] 123 mg/dL Normal 27-150 [facility] Comment on above: Performed By: #### C BCA, HA1C, CMP, FEPR, 37864-4, LIVR, 2038- 6, 6-3, 2276-4 #### [facility] ([id number]) [address] [place] [address] MICROALBUMIN - ALBUMIN:CREAT ININE URINE RATIOon 10-29-2023 ALB/CREAT RATIO NOT CALCULATED Normal 0.0-30.0 [facility] Comment on above: Result Comment: Result for Albumin/Creatinine Ratio cannot be reliably calculated because urine albumin and or urine creatinine is below the detection limit of the assay. Performed By: #### M ALBU #### [facility] ([id number]) [address] [place] [address], [address] [place] [address] Albumin DL <= 20 mg/L (U) [Mass/Vol] mg/dL Normal 0.0-1.9 [facility] Comment on above: Performed By: #### M ALBU #### [facility] ([id number]) [address] [place] [address], [address] [place] [address] URINE CREAT 47.85 mg/dL Normal [facility] Comment on above: Performed By: #### M ALBU #### [facility] ([id number]) [address] [place] [address], [address] [place] [address] TSH Qnon 10-29-2023 TSH 0.69 uIU/mL Normal 0.49-4.67 [facility] Comment on above: Performed By: #### C BCA, HA1C, CMP, FEPR, 77179-0, LIVR, 2039- 6, 3016-3, 2276-4 #### [facility] ([id number]) [address] [place] [address], [address] [place] [address] Office Visit (Cardiology)on 05-15-2022 Follow-up visit Diagnoses/Problems Assessed Status post angioplasty (V45.89) (Z98.62) Persistent atrial fibrillation (427.31) (I48.19) Hypertension (401.9) (I10) Hyperlipidemia (272.4) (E78.5) 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) Diabetes mellitus (250.00) (E11.9) Former smoker (V15.82) (Z87.891) Quit 2007 Class 2 obesity with body mass index (BMI) of 35.0 to 35.9 in adult (278.00,V85.35) (E66.9,Z68.35) Orders Class 2 obesity with body mass index (BMI) of 35.0 to 35.9 in adult Healthy Weight Tips; Status:Complete; Done: [id number] Some eating tips that can help you lose weight.; Status:Complete; Done: [id number] Coronary artery disease involving [place] coronary artery of [place] heart without angina pectoris Renew: Aspirin EC 81 MG Oral Tablet Delayed Release; 1 tablet twice weekly Coronary artery disease involving [place] coronary artery of [place] heart without angina pectoris, Hyperlipidemia Renew: Simvastatin 20 MG Oral Tablet; TAKE 1 TABLET AT BEDTIME Coronary artery disease involving [place] coronary artery of [place] heart without angina pectoris, Hypertension Renew: Lisinopril 10 MG Oral Tablet; TAKE 1 TABLET DAILY SocHx: Former smoker Tobacco Use Screening; Status:Complete; Done: [id number] Tobacco Use Screening; Status:Complete; Done: [id number] Patient Instructions Please bring all medicines, vitamins, and herbal supplements with you when you come to the office. Prescriptions will not be filled unless you are compliant with your follow up appointments or have a follow up appointment scheduled as per instruction of your physician. Refills should be requested at the time of your visit. Follow up in 1 year. Patient was encouraged to do more physical things such as vacuuming and house work. Chief Complaint MARISSA LENTZ is being seen for an annual follow-up of. History of Present Illness Patient returns in follow-up of problems as noted. She is doing well without angina CHF or arrhythmia symptomatology. The symptoms of coronary disease that preceded her original diagnosis and subsequent angioplasty were discussed and she has no such symptoms. Likewise her persistent atrial fibrillation is asymptomatic and she is tolerating the combination of rate control with anticoagulant therapy well and has no complaints. Management of blood pressure and lipids appears to be acceptable as is that of diabetes and because of this we recommend no change. The merits of diet exercise and weight loss were advocated to improve blood pressure and diabetes control. Surgical History Problems History of Angioplasty History of Colon surgery History of Colonoscopy History of Hernia repair History of Hysterectomy History of Percutaneous transluminal coronary angioplasty Current Meds Medication NameInstruction Albuterol Sulfate HFA 108 (90 Base) MCG/ACT Inhalation Aerosol Solutionas directed amLODIPine Besylate 2.5 MG Oral Tablettake 1 tablet by mouth once daily Aspirin EC 81 MG Oral Tablet Delayed Release1 tablet twice weekly Carbidopa-Levodopa 25-100 MG Oral TabletTAKE 1 TABLET 3 TIMES DAILY. FLUoxetine HCl - 20 MG Oral CapsuleTAKE 1 CAPSULE Daily Furosemide 40 MG Oral TabletTAKE 1 TABLET DAILY. Gabapentin 600 MG Oral TabletTake 1 tablet twice daily glipiZIDE 10 MG Oral TabletTAKE 1 TABLET DAILY DIRECTED. Iron 240 (27 Fe) MG Oral TabletTAKE 1 TABLET DAILY DIRECTED. Levothyroxine Sodium 125 MCG Oral CapsuleTake one tablet daily Lisinopril 10 MG Oral TabletTAKE 1 TABLET DAILY. Meloxicam 15 MG Oral TabletTAKE 1 TABLET DAILY WITH FOOD. metFORMIN HCl ER 500 MG Oral Tablet Extended Release 24 HourXR- take one tablet two times daily Nitrostat 0.4 MG Sublingual Tablet SublingualTAKE DIRECTED. Pioglitazone HCl - 45 MG Oral TabletTake 1 tablet daily Simvastatin 20 MG Oral TabletTAKE 1 TABLET AT BEDTIME. Stool Softener 100 MG Oral TabletTAKE 1 TABLET DAILY DIRECTED. traMADol HCl - 50 MG Oral TabletTAKE ONE TABLET TWO TIMES DAILY traZODone HCl - 50 MG Oral Tablettake as needed Tricor 145 MG Oral TabletTAKE 1 TABLET DAILY. Vitamin B 12 TABSTAKE 1 TABLET DAILY. Vitamin D3 25 MCG (1000 UT) Oral CapsuleTAKE 1 CAPSULE Daily Xarelto 20 MG Oral Tablettake 1 tablet by mouth once daily Allergies Medication Sulfa Drugs Allergy; Anaphylaxis;; Recorded By: Shantelle Sow; 05/04/2021 12:51:11 PM Social History Problems Caffeine use (V49.89) (Z78.9) 2 cups coffee daily Former smoker (V15.82) (Z87.891) Quit 2007 No alcohol use No illicit drug use Review of Systems Constitutional: not feeling tired. Eyes: no eyesight problems. ENT: no hearing loss and no nosebleeds. Cardiovascular: no intermittent leg claudication and as noted in HPI. Respiratory: no chronic cough and no shortness of breath. Gastrointestinal: no change in bowel habits and no blood in stools. Genitourinary: no urinary frequency. Skin: no skin annamarie (more content not included)... Normal [facility] Tobacco Screening.on 022 Adult depression screening assessment No [facility] 250 DO Work Phone: Fall risk assessment a) No falls within the last year [facility] [employer] 250 DO Work Phone: Tobacco use status CP b) No [facility] [employer] 250 DO Work Phone: GLYCOHEMOGLOBIN A1Con 2021 ADA RECOMMENDATION SEE BELOW Normal [facility] Comment on above: Result Comment: ADA RECOMMENDED LIMIT 4.0 - 6.0 ADA THERAPEUTIC TARGET < 7.0 ACTION SUGGESTED > 7.0 Performed By: #### M ALBR #### [facility] [address] [address] [address] Mariama Carreno Glucose [Mass/Vol] 143 mg/dL Normal [facility] Comment on above: Performed By: #### M ALBR #### [facility] [address] [address] [address] Mariama Carreno HbA1c (Bld) [Mass fraction] 6.6 % Critically high 4.5-6.2 [facility] Comment on above: Performed By: #### M ALBR #### [facility] [address] [address] [address] Mariama Carreno LIPID PROFILEon 12-12-2021 CHOL-HDL RATIO NORM SEE BELOW Normal [facility] Comment on above: Result Comment: 3.3 - 4.4 LOW RISK 4.4 - 7.1 AVERAGE RISK 7.1 - 11.0 MODERATE RISK >11.0 HIGH RISK Performed By: #### P OCGLUC #### [facility] [address] [address] [address] Mariama Carreno Cholesterol [Mass/Vol] 179 mg/dL Normal <=200 [facility] Comment on above: Performed By: #### P OCGLUC #### [facility] [address] [address] [address] Mariama Carreno Cholesterol in HDL [Mass/Vol] 59 mg/dL Normal 40-60 [facility] Comment on above: Performed By: #### P OCGLUC #### [facility] [address] [address] [address] Mariama Carreno Cholesterol in LDL [Mass/Vol] 96.8 mg/dL Normal [facility] Comment on above: Performed By: #### P OCGLUC #### [facility] [address] [address] [address] Mariama Carreno Cholesterol.total/Cho lesterol in HDL [Mass ratio] 3.0 {ratio} Normal [facility] Comment on above: Performed By: #### P OCGLUC #### [facility] [address] [address] [address] Mariama Carreno HDL NORMAL > or = 60 mg/dl - LO W CARDIOVASCULAR RISK <40 mg/dl - HIGH CARDIOVASCULAR RISK Normal [facility] Comment on above: Performed By: #### P OCGLUC #### [facility] [address] [address] [address] Mariama Carreno LDL CALC NORMAL SEE BELOW Normal [facility] Comment on above: Result Comment: <100 mg/dl OPTIMAL 100 - 129 mg/dl NEAR OR ABOVE OPTIMAL 130 - 159 mg/dl BORDERLINE HIGH 160 - 189 mg/dl HIGH >190 mg/dl VERY HIGH Performed By: #### P OCGLUC #### [facility] [address] [address] [address] Mariama Carreno Triglyceride [Mass/Vol] 116 mg/dL Normal <=150 [facility] Comment on above: Performed By: #### P OCGLUC #### [facility] [address] [address] [address] Mariama Carreno VLDL CALC 23.2 mg/dL Normal [facility] Comment on above: Performed By: #### P OCGLUC #### [facility] [address] [address] [address] Mariama Carreno MICROALBUMIN, RAND URon - mALB <0.6 Normal <=30.0 [facility] Comment on above: Performed By: #### M ALBR #### [facility] [address] [address] [address] Mariama Carreno TSHon 12-12-2021 TSH 0.338 uIU/mL Critically low 0.358-3.740 [facility] Comment on above: Performed By: #### P OCGLUC #### [facility] [address] [address] [address] Mariama Carreno VITAMIN D 25 OHon 12-12-2021 VIT D 25-OH 31.6 ng/mL Normal [facility] Comment on above: Performed By: #### V ITAD #### [facility] [address] [address] [address] Mariama Carreno VIT D RANGES SEE BELOW Normal [facility] Comment on above: Result Comment: <20 ng/mL Vit D deficient 20 - <30 ng/mL Vit D insufficient 30 - 100 ng/mL Vit D sufficient >100 ng/mL Potential Toxicity Performed By: #### V ITAD #### [facility] [address] [place] [address] Dr. Mariama Carreno Tobacco Screening.on 021 Fall risk assessment a) No falls within the last year -[facility] 250 DO Work Phone: Tobacco use status [facility] b) No -[facility] 250 DO Work Phone: GLYCOHEMOGLOBIN A1Con 2020 ADA RECOMMENDATION ADA THERAPEUTIC TARGET 6.0 - 7.0 ACTION SUGGESTED > 7.0 Normal [facility] Comment on above: Performed By: #### A 1C #### [facility] [address] [place] [address] Dr. Mariama Carreno Glucose [Mass/Vol] 128 mg/dL Normal [facility] Comment on above: Performed By: #### A 1C #### [facility] [address] [place] [address] Dr. Mariama Carreno HbA1c (Bld) [Mass fraction] 6.1 % Critically high <=6.0 [facility] Comment on above: Performed By: #### A 1C #### [facility] [address] [place] [address] Dr. Mariama Carreno CARDIAC KIRTI 3-6on 1 CK [Catalytic activity/Vol] 131 U/L Normal 30-135 [facility] Comment on above: Performed By: #### M ALBR #### [facility] [address] [place] [address] Dr. Mariama Carreno CK.MB [Mass/Vol] 1.59 ng/mL Normal <=2.37 [facility] Comment on above: Performed By: #### M ALBR #### [facility] [address] [place] [address] Dr. Mariama Carreno HSTROP 284.8 pg/mL Critically high 4.0-35.5 [facility] Comment on above: Result Comment: CUT- OFF POINTS HAVE BEEN ESTABLISHED BASED ON THE FOURTH UNIVERSAL DEFINITIONS OF MYOCARDIAL INFARCTION. THE UPPER REFERENCE LIMIT (URL) OF TROPONIN, DEFINED THE 99TH PERCENTILE OF cTnI DISTRIBUTION IN A REFERENCE POPULATION, HAS BEEN CONFIRMED THE DECISION THRESHOLD FOR DE DIAGNOSIS. Performed By: #### M ALBR #### [facility] [address] [address] [address] Mariama Carreno CK [Catalytic activity/Vol] 120 U/L Normal 30-135 [facility] Comment on above: Performed By: #### C MREP #### [facility] [address] [address] [address] Mariama TORRES.MB [Mass/Vol] 1.83 ng/mL Normal <=2.[address] [facility] Comment on above: Performed By: #### C MREP #### [facility] [address] [place] [address] Dr. Mariama Carreno HSTROP 259.4 pg/mL Critically high 4.0-35.5 [facility] Comment on above: Result Comment: CUT- OFF POINTS HAVE BEEN ESTABLISHED BASED ON THE FOURTH UNIVERSAL DEFINITIONS OF MYOCARDIAL INFARCTION. THE UPPER REFERENCE LIMIT (URL) OF TROPONIN, DEFINED THE 99TH PERCENTILE OF cTnI DISTRIBUTION IN A REFERENCE POPULATION, HAS BEEN CONFIRMED THE DECISION THRESHOLD FOR DE DIAGNOSIS. Test Repeated. Critical Value Verified Performed By: #### C MREP #### [facility] [address] [place] [address] Dr. Mariama Carreno CARDIAC KIRTI ADMITon 021 CK [Catalytic activity/Vol] 117 U/L Normal 30-135 [facility] Comment on above: Performed By: #### B FAITH HEALYDM #### [facility] [address] [address] [address] Mariama TORRES.MB [Mass/Vol] 1.87 ng/mL Normal <=2.[address] [facility] Comment on above: Performed By: #### B MONET CMADM #### [facility] [address] [address] [address] Mariama Carreno HSTROP 300.0 pg/mL Critically high 4.0-35.[address] [facility] Comment on above: Result Comment: CUT- OFF POINTS HAVE BEEN ESTABLISHED BASED ON THE FOURTH UNIVERSAL DEFINITIONS OF MYOCARDIAL INFARCTION. THE UPPER REFERENCE LIMIT (URL) OF TROPONIN, DEFINED THE 99TH PERCENTILE OF cTnI DISTRIBUTION IN A REFERENCE POPULATION, HAS BEEN CONFIRMED THE DECISION THRESHOLD FOR DE DIAGNOSIS. Test Repeated. Critical Value Verified Performed By: #### B MONET, FAITHDM #### [facility] [address] [place] [address] Dr. Mariama Carreno MIGUEL 101.0 ng/mL Critically high <=61.5 [facility] Comment on above: Performed By: #### B MONET, FAITHDM #### [facility] [address] [place] [address] Dr. Mariama Carreno CBC AUTO DIFFon 04-01-2021 BASO # 0.0 103/ul Normal 0.0-0.1 [facility] Comment on above: Performed By: #### M ALBR #### [facility] [address] [place] [address] Dr. Mariama Carreno Basophils/100 WBC (Bld) 0.4 % Normal 0.2-2.0 [facility] Comment on above: Performed By: #### M ALBR #### [facility] [address] [place] [address] Dr. Mariama Carreno EO # 0.1 103/ul Normal 0.0-0.7 [facility] Comment on above: Performed By: #### M ALBR #### [facility] [address] [place] [address] Dr. Mariama Carreno Eosinophils/100 WBC (Bld) 2.5 % Normal 0.9-7.0 [facility] Comment on above: Performed By: #### M ALBR #### [facility] [address] [place] [address] Dr. Mariama Carreno Erythrocyte distribution width (RBC) [Ratio] 0.0 % Critically low 11.0-15.0 [facility] Comment on above: Performed By: #### M ALBR #### [facility] [address] [place] [address] Dr. Mariama Carreno Hematocrit (Bld) [Volume fraction] 33.3 % Critically low 36.0-48.0 [facility] Comment on above: Performed By: #### M ALBR #### [facility] [address] [place] [address] Dr. Mariama Carreno Hemoglobin (Bld) [Mass/Vol] 9.7 g/dL Critically low 12.0-16.0 [facility] Comment on above: Performed By: #### M ALBR #### [facility] [address] [place] [address] Dr. Mariama Carreno IG # 0.02 10e3/ul Normal 0.00-0.03 [facility] Comment on above: Performed By: #### M ALBR #### [facility] [address] [place] [address] Dr. Mariama Carreno IG % 0.4 % Normal 0.0-0.5 [facility] Comment on above: Performed By: #### M ALBR #### [facility] [address] [place] [address] Dr. Mariama Carreno LYMPH # 0.9 103/ul Critically low 1.2-3.8 [facility] Comment on above: Performed By: #### M ALBR #### [facility] [address] [place] [address] Dr. Mariama Carreno Lymphocytes/100 WBC (Bld) 19.3 % Critically low 20.5-60.0 [facility] Comment on above: Performed By: #### M ALBR #### [facility] [address] [place] [address] Dr. Mariama Carreno MANUAL DIFF REQ NO Normal [facility] Comment on above: Performed By: #### M ALBR #### [facility] [address] [place] [address] Dr. Mariama Carreno MCH (RBC) [Entitic mass] 24.0 pg Critically low 26.7-34.0 [facility] Comment on above: Performed By: #### M ALBR #### [facility] [address] [place] [address] Dr. Mariama Carreno MCHC (RBC) [Mass/Vol] 29.1 g/dL Critically low 29.9-35.2 [facility] Comment on above: Performed By: #### M ALBR #### [facility] [address] [place] [address] Dr. Mariama Carreno MCV (RBC) [Entitic vol] 82.4 fL Normal 81.0-99.0 [facility] Comment on above: Performed By: #### M ALBR #### [facility] [address] [place] [address] Dr. Mariama Carreno MONO # 0.5 103/ul Normal 0.3-0.8 [facility] Comment on above: Performed By: #### M ALBR #### [facility] [address] [place] [address] Dr. Mariama Carreno Monocytes/100 WBC (Bld) 11.9 % Normal 1.7-12.0 [facility] Comment on above: Performed By: #### M ALBR #### [facility] [address] [place] [address] Dr. Mariama Carreno NEUT # 2.9 103/ul Normal 1.4-6.5 [facility] Comment on above: Performed By: #### M ALBR #### [facility] [address] [place] [address] Dr. Mariama Carreno Neutrophils/100 WBC (Bld) 65.5 % Normal 43.0-75.0 [facility] Comment on above: Performed By: #### M ALBR #### [facility] [address] [place] [address] Dr. Mariama Carreno Platelet mean volume (Bld) [Entitic vol] 10.2 fL Normal 9.5-13.5 [facility] Comment on above: Performed By: #### M ALBR #### [facility] [address] [place] [address] Dr. Mariama Carreno PLT 240 103/ul Normal 150-450 [facility] Comment on above: Performed By: #### M ALBR #### [facility] [address] [place] [address] Dr. Mariama Carreno RBC 4.04 106/ul Critically low 4.20-5.40 [facility] Comment on above: Performed By: #### M ALBR #### [facility] [address] [place] [address] Dr. Mariama Carreno WBC 4.5 103/ul Normal 4.0-11.0 [facility] Comment on above: Performed By: #### M ALBR #### [facility] [address] [place] [address] Dr. Mariama Carreno Covid-19 PCR ([facility])on SARS-CoV-2 (COVID-19) RNA DAKOTA+probe Ql (Unsp spec) Not detected Normal NOT DETECTED [facility] Comment on above: Result Comment: This test is not yet approved or cleared by the [place] FDA. When there are no FDA-approved or cleared tests available, and other criteria are met, FDA can make tests available under an emergency access mechanism called an Emergency Use Authorization (EUA). The EUA for this test is supported by the Center Receptionist of Health and Human Service's (HHS's) declaration that circumstances exist to justify the emergency use of in vitro diagnostics for the detection and/or diagnosis of the virus that causes COVID-19. This EUA will remain in effect (meaning this test can be used) for the duration of the COVID-19 declaration justifying emergency of IVDs, unless it is terminated or revoked by FDA (after which the test may no longer be used). When diagnostic testing is negative, the possibility of a false negative should be considered in the context of a patient's recent exposures and the presence of clinical signs and symptoms consistent with SARS-CoV-2. Performed By: #### M ALBR #### [facility] [address] [place] [address] Dr. Mariama Carreno ER URINE PROFILEon 1 Bilirubin Ql (U) Negative Normal NEGATIVE [facility] Comment on above: Performed By: #### P OCGLUC #### [facility] [address] [place] [address] Dr. Mariama Carreno Clarity (U) CLEAR Normal CLEAR [facility] Comment on above: Performed By: #### P OCGLUC #### [facility] [address] [place] [address] Dr. Marimaa Carreno Color (U) LT. YELLOW Normal YELLOW [facility] Comment on above: Performed By: #### P OCGLUC #### [facility] [address] [address] [address] Mariama MCDONALD A micrscopic examination will be performed if indicated. Normal [facility] Comment on above: Performed By: #### P OCGLUC #### [facility] [address] [address] [address] Mariama Carreno Glucose Ql (U) Negative Normal NEGATIVE [facility] Comment on above: Performed By: #### P OCGLUC #### [facility] [address] [address] [address] Mariama Carreno Hemoglobin Ql (U) SMALL Abnormal NEGATIVE [facility] Comment on above: Performed By: #### P OCGLUC #### [facility] [address] [place] [address] Dr. Mariama Carreno Ketones Ql (U) Negative Normal NEGATIVE [facility] Comment on above: Performed By: #### P OCGLUC #### [facility] [address] [address] [address] Mariama Carreno LEUKOCYTES Negative Normal NEGATIVE [facility] Comment on above: Performed By: #### P OCGLUC #### [facility] [address] [address] [address] Mariama Carreno Nitrite Ql (U) Negative Normal NEGATIVE [facility] Comment on above: Performed By: #### P OCGLUC #### [facility] [address] [address] [address] Mariama Carreno pH (U) 6.0 [pH] Normal 5-9 [facility] Comment on above: Performed By: #### P OCGLUC #### [facility] [address] [address] [address] Mariama Carreno SPEC GRAVITY 1.015 Normal 1.005-<=1.025 [facility] Comment on above: Performed By: #### P OCGLUC #### [facility] [address] [address] [address] Mariama Carreno UA PROTEIN Negative Normal NEGATIVE/ TRACE [facility] Comment on above: Performed By: #### P OCGLUC #### [facility] [address] [address] [address] Mariama Carreno UR MICRO IND INDICATED Normal [facility] Comment on above: Performed By: #### P OCGLUC #### [facility] [address] [place] [address] Dr. Mariama Carreno Urobilinogen Qn (U) 0.2 {Jaky'U}/dL Normal 0.2 - 1. 0 [facility] Comment on above: Performed By: #### P OCGLUC #### [facility] [address] [address] [address] Mariama Carreno POINT OF CARE GLUCOSEon Glucose [Mass/Vol] 184 mg/dL Critically high [address] [place] [address] Comment on above: Performed By: #### M ALBR #### [facility] [address] [place] [address] Dr. Mariama Carreno Glucose [Mass/Vol] 199 mg/dL Critically high [address] [place] [address] Comment on above: Performed By: #### P OCGLUC #### [facility] [address] [place] [address] Dr. Mariama Carreno Glucose [Mass/Vol] 217 mg/dL Critically high [address] [place] [address] Comment on above: Performed By: #### P OCGLUC #### [facility] [address] [address] [address] Mariama Carreno Glucose [Mass/Vol] 175 mg/dL Critically high [address] [place] [address] Comment on above: Performed By: #### M ALBR #### [facility] [address] [address] [address] Mariama Carreno Glucose [Mass/Vol] 136 mg/dL Critically high [address] [place] [address] Comment on above: Performed By: #### M ALBR #### [facility] [address] [address] [address] Mariama Carreno Glucose [Mass/Vol] 119 mg/dL Critically high [address] [place] [address] Comment on above: Performed By: #### P OCGLUC #### [facility] [address] [address] [address] Mariama Carreno Glucose [Mass/Vol] 103 mg/dL Normal 74-106 [facility] Comment on above: Performed By: #### M ALBR #### [facility] [address] [address] [address] Mariama Carreno Glucose [Mass/Vol] 112 mg/dL Critically high 74-[address] [facility] Comment on above: Performed By: #### M ALBR #### [facility] [address] [address] [address] Mariama Carreno Glucose [Mass/Vol] 64 mg/dL Critically low 74-106 [facility] Comment on above: Performed By: #### P OCGLUC #### [facility] [address] [place] [address] Dr. Mariama Carreno PROF CHEM 8 (BAS METB)on Anion gap [Moles/Vol] 9.3 mmol/L Normal [facility] Comment on above: Performed By: #### B MONET, CMADM #### [facility] [address] [place] [address] Dr. Mariama Carreno Calcium [Mass/Vol] 9.8 mg/dL Normal 8.4-10.2 [facility] Comment on above: Performed By: #### B MP, CMADM #### [facility] [address] [place] [address] Dr. Mariama Carreno Chloride [Moles/Vol] 101 mmol/L Normal 98-107 [facility] Comment on above: Performed By: #### B MP, CMADM #### [facility] [address] [place] [address] Dr. Mariama Carreno CO2 [Moles/Vol] 31.2 mmol/L Critically high 22.0-30.0 [facility] Comment on above: Performed By: #### B MP, CMADM #### [facility] [address] [place] [address] Dr. Mariama Carreno Creatinine [Mass/Vol] 1.30 mg/dL Critically high 0.52-1.04 [facility] Comment on above: Performed By: #### B MONET, VANITA #### [facility] [address] [address] [address] Mariama Carreno EGFR-AF BAHAMIAN 48 mL/min/1.73m2 Critically low >=60 [facility] Comment on above: Performed By: #### B MONET, FAITHDM #### [facility] [address] [address] [address] Mariama Carreno EGFR-NON AF BAHAMIAN 40 mL/min/1.73m2 Critically low >=60 [facility] Comment on above: Performed By: #### B VANITA HEALY #### [facility] [address] [place] [address] Dr. Mariama Carreno Glucose [Mass/Vol] 87 mg/dL Normal 74-106 [facility] Comment on above: Performed By: #### B VANITA HEALY #### [facility] [address] [address] [address] Mariama Carreno Potassium [Moles/Vol] 3.5 mmol/L Normal 3.4-5.0 [facility] Comment on above: Performed By: #### B VANITA HEALY #### [facility] [address] [place] [address] Dr. Mariama Carreno Sodium [Moles/Vol] 138 mmol/L Normal 137-145 [facility] Comment on above: Performed By: #### B VANITA HEALY #### [facility] [address] [place] [address] Dr. Mariama Carreno Urea nitrogen [Mass/Vol] 17.0 mg/dL Normal 7.0-17.0 [facility] Comment on above: Performed By: #### B VANITA HEALY #### [facility] [address] [place] [address] Dr. Mariama Carreno Urea nitrogen/Creatinine [Mass ratio] 13.1 mg/mg Normal [facility] Comment on above: Performed By: #### B VANITA HEALY #### [facility] [address] [place] [address] Dr. Mariama Carreno URINE MICROSCOPIC ONLYon BACTERIA NONE SEEN Normal NONE SEEN [facility] Comment on above: Performed By: #### P OCGLUC #### [facility] [address] [place] [address] Dr. Mariama Carreno Bacteria identified Cx Nom (U) NOT INDICATED Normal [facility] Comment on above: Performed By: #### P OCGLUC #### [facility] [address] [place] [address] Dr. Mariama Carreno CAST NONE SEEN Normal NONE SEEN [facility] Comment on above: Performed By: #### P OCGLUC #### [facility] [address] [place] [address] Dr. Mariama Carreno Crystals LM Nom (Urine sed) NONE SEEN Normal NONE SEEN [facility] Comment on above: Performed By: #### P OCGLUC #### [facility] [address] [place] [address] Dr. Mariama Carreno Epithelial cells LM Ql (Urine sed) FEW Abnormal NONE SEEN /RARE [facility] Comment on above: Performed By: #### P OCGLUC #### [facility] [address] [place] [address] Dr. Mariama Carreno MUCOUS NONE SEEN Normal NONE SEEN [facility] Comment on above: Performed By: #### P OCGLUC #### [facility] [address] [place] [address] Dr. Mariama Carreno RBC 5-10 Abnormal 0-2 [facility] Comment on above: Performed By: #### P OCGLUC #### [facility] [address] [place] [address] Dr. Mariama Carreno WBC NONE SEEN Normal NONE SEEN [facility] Comment on above: Performed By: #### P OCGLUC #### [facility] [address] [place] [address] Dr. Mariama Carreno XR CHEST 1 Von 04-01-2021 XR CHEST 1 V CLINICAL HISTORY: Cough COMPARISON: Chest radiograph, 05/23/2019 FINDINGS: Portable AP view of the chest obtained. Cardiomediastinal silhouette is chronically enlarged. Lungs are clear, no evidence of infiltrate, suspicious nodule, or mass. No evidence of significant pleural fluid on this portable projection. No acute bony abnormality. IMPRESSION: No acute abnormality. Cardiomegaly redemonstrated. Electronically authenticated by: ROB MILLERCELINE Date: 2021-04-01 01:17 Normal [facility] CARDIAC STRESS/REST (MIGUEL CARDIAL PERFUSION/MIBI)on 08-18-2020 [facility] CARDIAC STRESS/REST (MYOCARDIAL PERFUSION/MIBI) Patient Name: MARISSA LENTZ STUDY: MYOCARDIAL PERFUSION STRESS TEST WITH LEXISCAN Performing facility: [facility], \[address], [address], \[place] [address] [facility] Provider: Martin Benitez MD, [facility] PCP: Dr. Cecilia Guillen Supervising provider: Queenie Larios MD INDICATION: CAD; Diabetes mellitus Hyperlipidemia Pre-operative risk assessment for Hernia repair scheduled at [facility] on TBD. HISTORY: Gender: F; Age: 80 y/o ; Height: 162.56 cm; Weight: 88.940669 kg. CAD; Diabetes; Previous DE; HTN; Arrhythmias; Quit smoking unknown years ago. Cardiac catheterization on 2014. COMPARISON: Previous nuclear testing completed [id number] [facility] at [facility]. ACCESSION NUMBER(S): [id number]; [id number]; [id number] ORDERING CLINICIAN: HERO BENITEZ TECHNIQUE: ONE DAY protocol. Stress injection: Date:08/18/2020, 34.5 mCi of Myoview IV 20 seconds after rapid injection of Lexiscan. Rest injection: Date: 08/18/2020, 11.8 mCi of Myoview IV at rest. The patient had a rapid injection of 0.4 mg of Lexiscan IV over 10 seconds. Imaging was performed by gated tomographic technique. Reason for Lexiscan: uses walker/cane STRESS TEST DATA: Resting heart rate was 73 BPM. Resting blood pressure was 120/88 mmHg. Peak blood pressure was 124/80 mmHg. Peak heart rate was 90 BPM. TEST TERMINATED DUE TO: Protocol completed FINDINGS: STRESS TEST RESULTS: Resting electrocardiogram revealed atrial fibrillation with nonspecific ST-T changes. There were no significant ischemic ECG changes or dysrhythmias. The patient did not have chest pains/symptoms during procedure. There was a normal recovery phase. IMAGING RESULTS: Image quality was good. Rest and stress tomographic images were reviewed and revealed normal perfusion without evidence of ischemia, myocardial infarction, or left ventricular dilatation with stress. Overall left ventricular systolic function appeared to be normal without regional wall motion abnormalities. Ejection fraction was 63%. TID is 1.04 and is normal. There was no evidence of attenuation artifact. IMPRESSION: Normal Lexiscan Myoview cardiac perfusion stress test. No evidence of ischemia or myocardial infarction by perfusion imaging. Normal left ventricular systolic function, ejection fraction 63%. When compared to study from 2018 the previously reported probable apical ischemia is no longer seen. Electronically signed by: MICHAEL BOURNE MD Normal [facility] CARDIAC STRESS/REST INJE CTIONon 08-18-2020 [facility] CARDIAC STRESS/REST INJECTION Patient Name: MARISSA LENTZ STUDY: MYOCARDIAL PERFUSION STRESS TEST WITH LEXISCAN Performing facility: [facility], \[address], [address], \[address] Provider: Martin Benitez MD, [facility] PCP: Dr. Cecilia Guillen Supervising provider: Queenie Larios MD INDICATION: CAD; Diabetes mellitus Hyperlipidemia Pre-operative risk assessment for Hernia repair scheduled at [facility] on D. HISTORY: Gender: F; Age: 80 y/o ; Height: 162.56 cm; Weight: 88.166073 kg. CAD; Diabetes; Previous DE; HTN; Arrhythmias; Quit smoking unknown years ago. Cardiac catheterization on 2014. COMPARISON: Previous nuclear testing completed [id number] [facility] at [facility]. ACCESSION NUMBER(S): [id number]; [id number]; [id number] ORDERING CLINICIAN: HERO BENITEZ TECHNIQUE: ONE DAY protocol. Stress injection: Date:08/18/2020, 34.5 mCi of Myoview IV 20 seconds after rapid injection of Lexiscan. Rest injection: Date: 08/18/2020, 11.8 mCi of Myoview IV at rest. The patient had a rapid injection of 0.4 mg of Lexiscan IV over 10 seconds. Imaging was performed by gated tomographic technique. Reason for Lexiscan: uses walker/cane STRESS TEST DATA: Resting heart rate was 73 BPM. Resting blood pressure was 120/88 mmHg. Peak blood pressure was 124/80 mmHg. Peak heart rate was 90 BPM. TEST TERMINATED DUE TO: Protocol completed FINDINGS: STRESS TEST RESULTS: Resting electrocardiogram revealed atrial fibrillation with nonspecific ST-T changes. There were no significant ischemic ECG changes or dysrhythmias. The patient did not have chest pains/symptoms during procedure. There was a normal recovery phase. IMAGING RESULTS: Image quality was good. Rest and stress tomographic images were reviewed and revealed normal perfusion without evidence of ischemia, myocardial infarction, or left ventricular dilatation with stress. Overall left ventricular systolic function appeared to be normal without regional wall motion abnormalities. Ejection fraction was 63%. TID is 1.04 and is normal. There was no evidence of attenuation artifact. IMPRESSION: Normal Lexiscan Myoview cardiac perfusion stress test. No evidence of ischemia or myocardial infarction by perfusion imaging. Normal left ventricular systolic function, ejection fraction 63%. When compared to study from 2018 the previously reported probable apical ischemia is no longer seen. Electronically signed by: MICHAEL BOURNE MD [facility] PART 2 STRESS OR REST (N O CHARGE)on 08-18-2020 [facility] PART 2 STRESS OR REST (NO CHARGE) Patient Name: MARISSA LENTZ STUDY: MYOCARDIAL PERFUSION STRESS TEST WITH LEXISCAN Performing facility: [facility], \[address], [address], \[address] Provider: Martin Benitez MD, [facility] PCP: Dr. Cecilia Guillen Supervising provider: Queenie Larios MD INDICATION: CAD; Diabetes mellitus Hyperlipidemia Pre-operative risk assessment for Hernia repair scheduled at [facility] on TBD. HISTORY: Gender: F; Age: 80 y/o ; Height: 162.56 cm; Weight: 88.265697 kg. CAD; Diabetes; Previous DE; HTN; Arrhythmias; Quit smoking unknown years ago. Cardiac catheterization on 2014. COMPARISON: Previous nuclear testing completed [id number] [facility] at [facility]. ACCESSION NUMBER(S): [id number]; [id number]; [id number] ORDERING CLINICIAN: HERO BENITEZ TECHNIQUE: ONE DAY protocol. Stress injection: Date:08/18/2020, 34.5 mCi of Myoview IV 20 seconds after rapid injection of Lexiscan. Rest injection: Date: 08/18/2020, 11.8 mCi of Myoview IV at rest. The patient had a rapid injection of 0.4 mg of Lexiscan IV over 10 seconds. Imaging was performed by gated tomographic technique. Reason for Lexiscan: uses walker/cane STRESS TEST DATA: Resting heart rate was 73 BPM. Resting blood pressure was 120/88 mmHg. Peak blood pressure was 124/80 mmHg. Peak heart rate was 90 BPM. TEST TERMINATED DUE TO: Protocol completed FINDINGS: STRESS TEST RESULTS: Resting electrocardiogram revealed atrial fibrillation with nonspecific ST-T changes. There were no significant ischemic ECG changes or dysrhythmias. The patient did not have chest pains/symptoms during procedure. There was a normal recovery phase. IMAGING RESULTS: Image quality was good. Rest and stress tomographic images were reviewed and revealed normal perfusion without evidence of ischemia, myocardial infarction, or left ventricular dilatation with stress. Overall left ventricular systolic function appeared to be normal without regional wall motion abnormalities. Ejection fraction was 63%. TID is 1.04 and is normal. There was no evidence of attenuation artifact. IMPRESSION: Normal Lexiscan Myoview cardiac perfusion stress test. No evidence of ischemia or myocardial infarction by perfusion imaging. Normal left ventricular systolic function, ejection fraction 63%. When compared to study from 2018 the previously reported probable apical ischemia is no longer seen. Electronically signed by: MICHAEL BOURNE MD Normal [facility] Creatinineon 03-24-2018 Creatinine mass conc 0.97 mg/dL Normal 0.50-1.05 [facility] Comment on above: Performed By: #### 1 [id number] ####[facility] [id number] [place] [address] GFR/1.73 sq M.predicted MDRD vol rate/area 56 mL/min/{1.73_m2} Normal [facility] Comment on above: Result Comment: Inte rpretation for Chronic Kidney Disease:Stages 1&2 >60 Healthy or potential kidney damage.Mild decrease of GFR.Stage 3 30-59 Moderate decrease of GFR.Stage 4 15-29 Severe decrease of GFR.Stage 5 <15 Kidney failure or on dialysis. Performed By: #### 1 [id number] ####[facility] [id number] [place] [address] Electrolyte Panelon 03-24-20 18 Anion gap 3 molar conc 14 mmol/L Normal 10-20 [facility] Comment on above: Performed By: #### 1 [id number] ####[facility] [id number] [place] [address] Chloride molar conc 103 mmol/L Normal 98-107 [facility] Comment on above: Performed By: #### 1 [id number] ####[facility] [id number] [place] [address] HCO3 molar conc (Bld) 29 mmol/L Normal 21-32 [facility] Comment on above: Performed By: #### 1 [id number] ####[facility] [id number] [place] [address] Potassium molar conc 4.5 mmol/L Normal 3.5-5.1 [facility] Comment on above: Performed By: #### 1 [id number] ####[facility] [id number] [place] [address] Sodium molar conc 141 mmol/L Normal 136-145 [facility] Comment on above: Performed By: #### 1 [id number] ####[facility] [id number] [place] [address] Urea Nitrogenon 03-24-2018 Urea nitrogen mass conc 21 mg/dL Normal 6-23 [facility] Comment on above: Performed By: #### [id number] ####[facility] [address] [place] [address] Vital Signs Date Time Vital Sign Value Performing Clinician Kate infante 05-14-2023 11:050 Body height 162.6 cm Hero Benitez MD Work Phone: [facility] 05-14-2023 11: Body mass index (BMI) [Ratio] 34.5 kg/m2 Hero Benitez MD Work Phone: [facility] 05-14-2023 11:050 Body weight 91.17 kg Hero Benitez MD Work Phone: [facility] 05-14-2023 11:11-0500 Diastolic blood pressure 82 mm[Hg] Hero Benitez MD Work Phone: [facility] 05-14-2023 11:11-0500 Heart rate 56 /min Hero Benitez MD Work Phone: [facility] 05-14-2023 11:11-0500 Systolic blood pressure 126 mm[Hg] Hero Benitez MD Work Phone: [facility] 05-15-2022 10:32-0500 Body height 162.56 cm Emre A Naderer Work Phone: [facility] DO Work Phone: 05-15-2022 10:32-0500 Body mass index (BMI) [Ratio] 35.19 kg/m2 Emre A Naderer Work Phone: [facility] [facility] DO Work Phone: 05-15-2022 10:32-0500 Body surface area Derived from formula 1.98 m2 Emre A Naderer Work Phone: [facility] [facility] DO Work Phone: 05-15-2022 10:32-0500 Body weight 92.99 kg Emre A Naderer Work Phone: [facility] [facility] DO Work Phone: 05-15-2022 10:32-0500 Diastolic blood pressure 70 mm[Hg] Emre A Naderer Work Phone: [facility] DO Work Phone: 05-15-2022 10:32-0500 Heart rate 54 /min Emre A Naderer Work Phone: [facility] [facility] DO Work Phone: 05-15-2022 10:32-0500 Systolic blood pressure 134 mm[Hg] Emre A Naderer Work Phone: [facility] [facility] [employer] [facility] DO Work Phone: 05-09-2021 10:28-0500 Body height 162.56 cm Emre A Naderer Work Phone: [facility] DO Work Phone: 05-09-2021 10:28-0500 Body mass index (BMI) [Ratio] 36.22 kg/m2 Emre A Naderer Work Phone: [facility] [employer] [address] DO Work Phone: 05-09-2021 10:28-0500 Body surface area Derived from formula 2 m2 Emre A Naderer Work Phone: [facility] [employer] [facility] DO Work Phone: 05-09-2021 10:28-0500 Body weight 95.71 kg Emre A Naderer Work Phone: [facility] [employer] [facility] DO Work Phone: 05-09-2021 10:28-0500 Diastolic blood pressure 70 mm[Hg] Emre A Naderer Work Phone: [facility] [employer] [address] DO Work Phone: 05-09-2021 10:28-0500 Heart rate 70 /min Emre A Naderer Work Phone: [facility] [employer] [facility] DO Work Phone: 05-09-2021 10:28-0500 Systolic blood pressure 118 mm[Hg] Emre A Naderer Work Phone: [facility] [employer] DO Work Phone: Encounters Encounter Date Encounter Type Care Provider Facility Start: 03-06-2024 End: 03-06-2024 ambulatory EMRE ROSEERER Not Available Start: 02-10-2024 End: 02-10-2024 ambulatory EMRE ROSEERER Not Available Start: 12-17-2023 End: 12-17-2023 ambulatory LINDY COELLOETT Not Available Start: 12-04-2023 End: 12-04-2023 ambulatory EMRE GUILLEN Not Available Start: 11-01-2023 End: 11-01-2023 ambulatory [facility] Start: 10-29-2023 End: 10-30-2023 ambulatory [facility] Start: 10-23-2023 End: 10-23-2023 ambulatory DARYL MALONE Not Available Start: 10-18-2023 End: 10-30-2023 ambulatory [facility] Start: 09-04-2023 End: 09-04-2023 ambulatory EMRE GUILLEN Not Available Start: 09-02-2023 End: 09-02-2023 ambulatory PREET Elena SALUD Not Available Start: 07-26-2023 End: 07-26-2023 Emergency department patient visit EMRE GUILLEN [facility] Start: 06-17-2023 End: 06-17-2023 ambulatory EMRE GUILLEN Not Available Start: 05-14-2023 End: 05-14-2023 ambulatory HERO BENITEZ [facility] Start: 05-14-2023 End: 05-14-2023 Office outpatient visit 25 minutes Hero Benitez MD Work Phone: [facility] Comment on above: Coronary artery dise ase involving salamatof coronary artery of salamatof heart without angina pectoris (Primary Dx); Mixed hyperlipidemia; Primary hypertension; Status post angioplasty; Persistent atrial fibrillation (CMS/HCC); Hypertension, unspecified type Start: 05-15-2022 Office outpatient vi sit 25 minutes [facility] Work Phone: Start: 05-15-2022 Patient encounter [facility] Work Phone: Start: 05-15-[address] Emre Guillen Facility: Start: 05-01-2022 Rx Renewal Emre Guillen Work Phone: [place] [address] DO Work Phone: Start: 01-12-2022 Telephone encounter Emre ashley Work Phone: [place] [address] DO Work Phone: Start: 01-04-2022 Rx Renewal Emre Guillen Work Phone: [place] [address] DO Work Phone: Start: 12-12-2021 End: 12-13-[address] EMRE GUILLEN Facility:[facility] Start: 05-09-2021 Office outpatient vi sit 25 minutes Emre Guillen Work Phone: [place] [address] DO Work Phone: Start: 05-09-2021 Patient encounter procedure Emre Guillen Work Phone: [place] [address] DO Work Phone: Start: 04-24-2021 End: 04-25-[address] EMRE GUILLEN Facility:[facility] Start: 04-01-2021 End: 04-01-2021 Evaluation and management of inpatient DR EMRE GUILLEN Facility:[facility] Start: 03-24-2018 Patient encounter JOSE MANUEL BEAUCHAMP Faccristian lity:[id number] Patient encounter status Emre Guillen Work Phone: [place] [address] DO Work Phone: Procedures Date Procedure Procedure Detail Performing Clinician Start: 11-01-2023 Follow-up visit Follow-up HERNAN HOLMAN Start: 01-29-2018 Colonoscopy Emre ashley Work Phone: Angioplasty of blood vessel Emre Guillen Work Phone: Colonoscopy Emre Guillen Work Phone: Comment on above: 03/30/2021; Hernia repair Emre Guillen Work Phone: Hysterectomy Emre Guillen Work Phone: Operation on colon Emre Naqvi Carmel keithpiero Work Phone: Percutaneous translu marialuisa coronary angioplasty Emre Guillen Work Phone: Plan of Treatment Date Care Activity Detail Author Start: 05-26-2024 End: 05-26-2024 Patient encounter procedure 05/26/2024 10:50 AM EST Office Visit [facility] [address] [facility] [address] [address] [place] [address] Hero Benitez MD [address] [facility] [address] [place] [address] [facility] Start: 05-14-2023 FUV, Provider: Hero Benitez, Status: Pen, Time: 11:20 AM FUV, Provider: Hero Benitez, Status: Pen, Time: 11:20 AM [facility] [facility] DO Work Phone: Start: 03-01-2023 Influenza vaccination Influenza Vaccine (#1) [facility] Start: 05-15-2022 FUV, Provider: Hero Benitez, Status: Pen, Time: 10:30 AM FUV, Provider: Hero Benitez, Status: Pen, Time: 10:30 AM [facility] DO Work Phone: Start: 02-24-2022 COVID-19 Vaccine (4 - Pfizer series) COVID-19 Vaccine (4 - Pfizer series) [facility] Start: 1991 Zoster Vaccines (1 of 2) Zoster Vaccines (1 of 2) [facility] Start: 1963 DTaP/Tdap/Td Vaccines (1 - Tdap) DTaP/Tdap/Td Vaccines (1 - Tdap) [facility] Start: 1960 Urine screening for protein Diabetes: Urine Protein Screening [facility] Start: 1951 Diabetic foot examination Diabetes: Foot Exam [facility] Start: 1951 Glaucoma screening Diabetes: Retinopathy Screening [facility] Start: 1941 Hemoglobin A1c measurement Diabetes: Hemoglobin A1C [facility] Start: 1941 Lipid panel Lipid Panel [facility] Start: 1941 Medicare Annual Wellness Visit Medicare Annual Wellness Visit (AWV) [facility] Start: 1941 Screening for osteoporosis Bone Density Scan [facility] Start: 1941 Thyroid stimulating hormone measurement TSH Level [facility] Immunizations Immunization Date Immunization Notes Care Provider Castro louis 06-17-2022 influenza virus vacc ine, unspecified formulation Hero Benitez MD Work Phone: [facility] Work Phone: 05-01-2021 Pfizer-BioNTech COVI D-19 Vacc 30 MCG/0.3ML Intramuscular Suspension Emre Guillen Work Phone: [facility] Comment on above: Series: 04-14-2021 influenza, high dose seasonal, preservative-free Emre Guillen Work Phone: [facility] [place] DO Work Phone: Comment on above: Series: 08-25-2020 Pfizer-BioNTech COVI D-19 Vacc 30 MCG/0.3ML Intramuscular Suspension Emre Guillen Work Phone: [facility] Comment on above: Series: 07-28-2020 Pfizer-BioNTech COVI D-19 Vacc 30 MCG/0.3ML Intramuscular Suspension Emre Guillen Work Phone: [facility] Comment on above: Series: 03-31-2020 pneumococcal polysaccharide vaccine, 23 valent Emre Guillen Work Phone: [facility] [employer] [facility] [employer] [address] DO Work Phone: Comment on above: Series: 11-28-2018 pneumococcal conjuga te vaccine, 13 valent [facility] Work Phone: Comment on above: Series: 04-01-2018 pneumococcal conjuga te vaccine, 13 hoa Benitez MD Work Phone: [facility] Payers Date Payer Category Payer Medicare MEDICARE MEDICAR E RAILROAD [id number] 2006-Present [address] [place] [address] [id number] 1959 Medicare [id number] 1959 Unknown [id number] 1941 Unknown [id number] [id number] 1941 Unknown [id number] [id number] 1941 Unknown [id number] [id number] 1941 Unknown [id number] [id number] 1941 Unknown [id number] 2.16.840.1.160822.3.579.2.1244 1941 Unknown [id number] 2.16.840.1.163081.3.579.2.1286 1941 Unknown [id number] 2.16.840.1.873848.3.579.2.1286 1941 Unknown [id number] 2.16.840.1.027317.3.579.2.1286 1941 Unknown [id number] 2.16.840.1.385145.3.579.2.1286 1941 Unknown [id number] 2.16.840.1.230606.3.579.2.1259 1941 Unknown [id number] 2.16.840.1.145348.3.579.2.1259 1941 Unknown [id number] 2.16.840.1.390791.3.579.2.1259 1941 Unknown [id number] 2.16.840.1.778148.3.579.2.1259 1941 Unknown [id number] 2.16.840.1.239507.3.579.2.1259 1941 Unknown [id number] 2.16.840.1.434947.3.579.2.1259 1941 Unknown [id number] 2.16.840.1.335034.3.579.2.1259 1941 Unknown [id number] 2.16.840.1.859986.3.579.2.1259 1941 Unknown [id number] 2.16.840.1.615084.3.579.2.1259 Medicare [id number] Unknown Social History Date Type Detail Facility Start: 05-10-2023 [facility] use [facility] Work Phone: Comment on above: 3-4 cups daily; 2 cups coffee daily; Quit 2007; Start: 05-10-2023 [facility] Work Phone: History of tobacco use Current smoker [facility] Work Phone: History of tobacco use Cigarette Smoker [facility] Work Phone: Start: 05-10-2023 Tobacco use and exposure Smokeless tobacco non-user [facility] Work Phone: Start: 05-14-2023 Alcohol intake Lifetime non-d davin (finding) [facility] Work Phone: Start: 05-10-2023 Tobacco use panel [facility] Work Phone: Start: 1941 Sex Assigned At Not on file [facility] Work Phone: Start: 05-04-2023 End: 05-14-2023 Exposure to SARS-CoV-2 (event) Not sure [facility] History of Present illness Narrative 05-14-2023 Hero Benitez MD - 05/14/2023 11:20 AM EST Note Date & Type Note Facility 05-14-2023 History of Present illness Narrative Subjective Marissa Lentz is a 82 y.o. female HPI Patient returns in follow-up of problems as noted. In the interim she is done well and has had no clinical events. She acknowledges some memory loss and her daughter concurs. Nonetheless she appears to be a good historian. I cannot elicit from her or the daughter any angina CHF or arrhythmia symptomatology. The symptoms that preceded her diagnosis of coronary disease and subsequent PTCA were discussed and she is having no such symptomatology. She is tolerating persistent atrial fibrillation well. She is adequately protected by the combination of rate control and anticoagulant therapy. Because of all the above we suggest no adjustments in therapy and follow-up as noted Review of Systems All other systems reviewed and are negative. Visit Vitals BP 126/82 (BP Location: Right arm, Patient Position: Sitting) Pulse 56 Ht 1.626 m (5' 4 ) Wt 91.2 kg (201 lb) BMI 34.50 kg/m Smoking Status Former BSA 2.03 m Objective Physical Exam Constitutional: Appearance: Normal appearance. She is normal weight. HENT: Nose: Nose normal. Neck: Vascular: No carotid bruit. Cardiovascular: Rate and Rhythm: Normal rate. Pulses: Normal pulses. Heart sounds: Normal heart sounds. Pulmonary: Effort: Pulmonary effort is normal. Abdominal: General: Bowel sounds are normal. Palpations: Abdomen is soft. Genitourinary: Rectum: Normal. Musculoskeletal: General: Normal range of motion. Cervical back: Normal range of motion. Right lower leg: No edema. Left lower leg: No edema. Skin: General: Skin is warm and dry. Neurological: General: No focal deficit present. Mental Status: She is alert. Psychiatric: Mood and Affect: Mood normal. Behavior: Behavior normal. Thought Content: Thought content normal. Judgment: Judgment normal. Current Medications Current Outpatient Medications: albuterol 90 mcg/actuation inhaler, Inhale 2 puffs every 4 hours if needed., Disp: , Rfl: amLODIPine (Norvasc) 2.5 mg tablet, Take 1 tablet by mouth once daily, Disp: 90 tablet, Rfl: 3 aspirin 81 mg EC tablet, Take 1 tablet (81 mg) by mouth 2 times a week., Disp: , Rfl: carbidopa-levodopa (Sinemet) 25-100 mg tablet, Take 1 tablet by mouth 3 times a day., Disp: , Rfl: cyanocobalamin (Vitamin B-12) 1,000 mcg tablet, Take 100 mcg by mouth once daily., Disp: , Rfl: fenofibrate (Tricor) 145 mg tablet, Take 1 tablet (145 mg) by mouth once daily at bedtime., Disp: , Rfl: ferrous sulfate 134 mg (27 mg iron) tablet, Take 1 tablet (27 mg) by mouth once daily with a meal. Do not crush, chew, or split., Disp: , Rfl: FLUoxetine (PROzac) 20 mg capsule, Take 1 capsule (20 mg) by mouth once daily., Disp: , Rfl: furosemide (Lasix) 40 mg tablet, Take 1 tablet (40 mg) by mouth once daily., Disp: , Rfl: gabapentin (Neurontin) 600 mg tablet, Take 1 tablet (600 mg) by mouth 2 times a day., Disp: , Rfl: glipiZIDE XL (Glucotrol XL) 2.5 mg 24 hr tablet, Take 1 tablet (2.5 mg) by mouth once daily. Do not crush, chew, or split., Disp: , Rfl: levothyroxine (Tirosint) 125 mcg capsule, Take 1 tablet by mouth once daily., Disp: , Rfl: lisinopril 10 mg tablet, Take 1 tablet (10 mg) by mouth once daily., Disp: , Rfl: loratadine (Claritin) 10 mg tablet, Take 1 tablet (10 mg) by mouth once daily as needed for allergies., Disp: , Rfl: meloxicam (Mobic) 15 mg tablet, Take 1 tablet (15 mg) by mouth once daily., Disp: , Rfl: metFORMIN XR 500 mg 24 hr tablet, Take 1 tablet (500 mg) by mouth 2 times a day., Disp: , Rfl: nitroglycerin (Nitrostat) 0.4 mg SL tablet, Place 1 tablet (0.4 mg) under the tongue every 5 minutes if needed for chest pain., Disp: , Rfl: pioglitazone (Actos) 45 mg tablet, Take 1 tablet (45 mg) by mouth once daily., Disp: , Rfl: simvastatin (Zocor) 20 mg tablet, Take 1 tablet (20 mg) by mouth once daily at bedtime., Disp: , Rfl: traZODone (Desyrel) 50 mg tablet, Take 1 tablet (50 mg) by mouth see administration instructions. As directed, Disp: , Rfl: Xarelto 20 mg tablet, Take 1 tablet (20 mg) by mouth once daily., Disp: , Rfl: Assessment/Plan 1. Coronary artery disease involving salamatof coronary artery of salamatof heart without angina pectoris No recurrence of symptomatology that preceded her PTCA. I presume her CAD to be stable 2. Mixed hyperlipidemia Adequately controlled on current therapy 3. Primary hypertension Adequately controlled on current therapy 4. Status post angioplasty With resolution of anginal symptoms 5. Persistent atrial fibrillation (CMS/HCC) Well-tolerated. Rate is controlled and stroke risk is mitigated. documented in this encounter [facility] Work Phone: Instructions 05-14-2023 Patient Instructions Note Date & Type Note Facility 05-14-2023 Instructions Kareem Bearden MA - 05/14/2023 11:20 AM EST Please bring all medicines, vitamins, and herbal supplements with you when you come to the office. Prescriptions will not be filled unless you are compliant with your follow up appointments or have a follow up appointment scheduled as per instruction of your physician. Refills should be requested at the time of your visit. documented in this encounter [facility] Work Phone: Evaluation note Note Date & Type Note Facility Evaluation note Diagnosis Coronary artery disease involving salamatof coronary artery of salamatof heart without angina pectoris- Primary Mixed hyperlipidemia Primary hypertension Unspecified essential hypertension Status post angioplasty Postsurgical percutaneous transluminal coronary angioplasty status Persistent atrial fibrillation (CMS/HCC) Atrial fibrillation Hypertension, unspecified type documented in this encounter [facility] Work Phone: History of Present illness Narrative Note Date & Type Note Facility History of Present illness Narrative Patient returns in follow-up of problems as noted. She doing well from a cardiac standpoint. She has no angina or other symptomatology similar to that that preceded her diagnosis of coronary disease and/or her previous myocardial infarction and angioplasty. She has persistent atrial fibrillation but is adequately protected with current pharmacologic regimen. Treatment of her other risk factors including blood pressure and cholesterol and diabetes is reviewed and felt to be otherwise adequate but she complains of leg edema. Because of this we will reduce amlodipine dose and increase lisinopril dose and follow-up with another blood pressure check in the future and we advised her that more than likely her leg swelling will improve over the course of the next several weeks. [facility] [email or web address] Work Phone: History of Present illness Narrative Note Date & Type Note Facility History of Present illness Narrative Patient returns in follow-up of problems as noted. She is doing well without angina CHF or arrhythmia symptomatology. The symptoms of coronary disease that preceded her original diagnosis and subsequent angioplasty were discussed and she has no such symptoms. Likewise her persistent atrial fibrillation is asymptomatic and she is tolerating the combination of rate control with anticoagulant therapy well and has no complaints. Management of blood pressure and lipids appears to be acceptable as is that of diabetes and because of this we recommend no change. The merits of diet exercise and weight loss were advocated to improve blood pressure and diabetes control. [facility] Phone: Reason for referral (narrative) Consultation (Routine) - Authorized Note Date & Type Note Facility Reason for referral (narrati ve) Specialty Diagnoses / Procedures Referred By Eliseo beaulieu Referred To Contact Cardiology Diagnoses Primary hypertension Procedures Follow Up In Cardiology Hero Benitez MD [address] [place] [id number] Hero Benitez MD [address] [place] [id number] Referral ID Status Reason Start Date Expiration Date V isits Requested Visits Authorized [id number] Authorized 05/14/2023 05/13/2024 1 1 [facility] Work Phone: Summary Purpose Family History No Family History Records FoundUnknown Family Member Name Dates Details Family history of arterioscl erotic cardiovascular disease: Mother, Father, Sister, Brother(V17.49, Z82.49) Status:Active Unknown Family Member Name Dates Details Family history of arterioscl erotic cardiovascular disease: Mother, Father, Sister, Brother(V17.49, Z82.49) Status:Active Unknown Family Member Name Dates Details Family history of arterioscl erotic cardiovascular disease: Mother, Father, Sister, Brother(V17.49, Z82.49) Status:Active Unknown Family Member Name Dates Details Family history of arterioscl erotic cardiovascular disease: Mother, Father, Sister, Brother(V17.49, Z82.49) Status:Active Unknown Family Member Name Dates Details Family history of arterioscl erotic cardiovascular disease: Mother, Father, Sister, Brother(V17.49, Z82.49) Status:Active Unknown Family Member Name Dates Details Family history of arterioscl erotic cardiovascular disease: Mother, Father, Sister, Brother(V17.49, Z82.49) Status:Active Unknown Family Member Name Dates Details Family history of arterioscl erotic cardiovascular disease: Mother, Father, Sister, Brother(V17.49, Z82.49) Status:Active Unknown Family Member Name Dates Details Family history of arterioscl erotic cardiovascular disease: Mother, Father, Sister, Brother(V17.49, Z82.49) Status:Active Advance Directives No Advanced Directives Records FoundNo Advanced Directives Records FoundNo Advanced Directives Records FoundNo Advanced Directives Records FoundNo Advanced Directives Records FoundNo Advanced Directives Records FoundNo Advanced Directives Records FoundNo Advanced Directives Records Found Chief Complaint MARISSA LENTZ is being seen for an annual follow-up of.MARISSA LENTZ is being seen for an annual follow-up of.MARISSA LENTZ is being seen for an annual follow-up of. MARISSA LENTZ is being seen for an annual follow-up of.MARISSA LENTZ is being seen for an annual follow-up of.MARISSA LENTZ is being seen for an annual follow-up of. Additional Source Comments INFORMATION SOURCE (unrecogn ized section and content) DATE CREATED AUTHOR 04/23/2018 [facility] DATE CREATED AUTHOR AUTHOR'S ORGANIZ ATION 08/22/2020 [facility] DATE CREATED AUTHOR AUTHOR'S ORGANIZ ATION 12/14/2021 [facility] DATE CREATED AUTHOR AUTHOR'S ORGANIZ ATION 05/16/2022 [facility] DATE CREATED AUTHOR AUTHOR'S ORGANIZ ATION 05/17/2022 [employer] DATE CREATED AUTHOR AUTHOR'S ORGANIZ ATION 05/16/2023 [facility] DATE CREATED AUTHOR AUTHOR'S ORGANIZ ATION 11/02/2023 [facility] DATE CREATED AUTHOR AUTHOR'S ORGANIZ ATION 03/08/2024 [facility] EPIC Care Teams (unrecognized sec tion and content) Substance Addiction Coordinator Relationship Specialty Start Date End Date Emre Guillen MD [address] [place] [address] PCP - General 08/18/20 FOR RECORDS PERTAINING TO PATIENTS WHO ARE OR HAVE BEEN ENROLLED IN A CHEMICAL DEPENDENCY/SUBSTANCEABUSE PROGRAM, SOME INFORMATION MAY BE OMITTED. This clinical summary was aggregated from multiple sources. Caution should be exercised in using it in the provision of clinical care. This summary normalizes information from multiple sources, and as a consequence, information in this document may materially change the coding, format and clinical context of patient data. In addition, data may be omitted in some cases. CLINICAL DECISIONS SHOULD BE BASED ON THE PRIMARY CLINICAL RECORDS. [facility] [employer] [facility]. provides no warranty or guarantee of the accuracy or completeness of information in this document.
[2024-03-10 20:51] VITALS: BP 114/73; PULSE 78; TEMP 37; O2SAT 96; BMI 29.5
--- NOTE | 2024-03-10 21:00 | XR_ITS ---
The [address] [address] Patient Name: JOSE D LENTZ MRN: [id number] date: 1940 Sex: F Assigned Patient Location: ED.MAIN Current Patient Location: ER Accession/Order Number: [id number] Exam Date: 03/10/2024 22:00 Report Date: 03/10/2024 22:39 At the request of: EUNICE EDWARDS Procedure: XR shoulder LT min 2V EXAM: XR shoulder LT min 2V HISTORY: fall COMPARISON: None. TECHNIQUE: 3 views submitted. FINDINGS: Acute mildly comminuted proximal left humeral fracture involving base of greater tuberosity and surgical neck extending to the proximal metadiaphyseal junction. No displacement or angulation of fragments. No dislocation or subluxation. Normal preserved AC joint. Adequate bone mineralization. No destructive process. XR/XR shoulder LT min 2V IMPRESSION: Acute comminuted three-part proximal left humeral fracture involving the greater tuberosity and proximal metadiaphysis and the surgical neck region. Correlate with CT for surgical planning. Electronically authenticated by: DINO LE Date: 03/10/2024 22:39
--- NOTE | 2024-03-10 21:00 | CT_ITS ---
The [address] [address] Patient Name: JOSE D LENTZ MRN: [id number] date: 1940 Sex: F Assigned Patient Location: ER Current Patient Location: .MAIN Accession/Order Number: [id number] Exam Date: 03/10/2024 21:53 Report Date: 03/10/2024 22:26 At the request of: EUNICE EDWARDS Procedure: CT head/brain wo con EXAM: CT head/brain wo con HISTORY: fall COMPARISON: None. TECHNIQUE: Axial CT scans through the head were obtained without IV contrast administration. Dose reduction techniques were achieved by using: automated exposure control and/or adjustment of mA and /or kV according to patient size and/or use of iterative reconstruction technique. FINDINGS: There is no evidence of acute intracranial hemorrhage or abnormal extra-axial fluid collection. No mass effect or midline shift is seen. There is no evidence of large acute territorial infarction. There is no hydrocephalus. There is mild diffuse cerebral atrophy with periventricular decreased white matter attenuation which likely represents mild chronic microvascular ischemia. To the limit of CT, the posterior fossa appears unremarkable. There are mild atherosclerotic calcifications of bilateral distal internal carotid arteries. No definite acute fracture is identified. Soft tissues are unremarkable. The visualized orbits show no abnormality. There are mild mucosal thickening of bilateral maxillary sinus, ethmoid air cells and small layering fluid within left maxillary and left sphenoid sinuses. Mastoid air cells are clear. CT/CT head/brain wo con IMPRESSION: No CT evidence of acute intracranial abnormality. Senescent changes, as described. Mild paranasal sinus disease, as described. Recommend clinical correlation for acute sinusitis. Electronically authenticated by: HALINA [facility] Date: 03/10/2024 22:26
--- NOTE | 2024-03-10 21:00 | CT_ITS ---
[address] [address] Patient Name: JOSE D LENTZ MRN: [id number] date: 1940 Sex: F Assigned Patient Location: ER Current Patient Location: Accession/Order Number: [id number] Exam Date: 03/10/2024 21:53 Report Date: 03/10/2024 22:35 At the request of: EUNICE EDWARDS Procedure: CT cervical spine wo con EXAM: CT cervical spine wo con CT cervical spine wo con INDICATION: 83 years old; Female . CLINICAL HISTORY: fall TECHNIQUE: CT imaging of the cervical spine was performed. IV contrast: None. Dose reduction techniques were achieved by using automated exposure control and/or adjustment of mA and/or kV according to patient size and/or use of iterative reconstruction technique. COMPARISON: None available. FINDINGS: POSTOPERATIVE CHANGES: None. ALIGNMENT: Nonspecific straightening of the normal cervical curve. There is degenerative spondylolisthesis at C3-C4 and C4-C5 with C3 positioned 2.33 mm anterior to C4 and C4 positioned 4.01 mm anterior to C5. COMPRESSION FRACTURES: No fracture or vertebral body collapse. No bone destruction. No asymmetric widening of the facets. PREVERTEBRAL SOFT TISSUES: Normal. CRANIOCERVICAL JUNCTION: There is a normal relationship of the occipital condyles, lateral masses of C1, and articular surfaces of C2. The base of the dens and body of C2 are intact. There is narrowing of the predental space with spurring arising from the anterior arch of C1 and the tip of the dens. POSTERIOR FOSSA: The cerebellar tonsils are above the foramen magnum. There is calcification and thickening of the transverse ligament which narrows the CSF space anterior the cervical medullary junction. Disc levels: C2-C3: Calcification within the disc. Shallow central disc osteophyte complex. Facet degeneration. Central canal patent. Neural foramina patent. Anterior osteophyte formation. C3-C4: Grade 1 degenerative spondylolisthesis. C3 is positioned 2.33 mm anterior to C4. Facet degeneration is present bilaterally. Central disc osteophyte complex. Central canal patent. Neural foramina patent. C4-C5: Beam hardening artifacts. Degenerative spondylolisthesis. Facet degeneration, worse on the left than the right. Anterior osteophyte formation. Central canal patent. Neural foramina patent. C5-C6: Beam hardening artifacts. Disc space narrowing with [id number] appearance associated with endplate sclerosis and cystic changes. Anterior osteophyte formation. Uncovertebral joint degeneration and facet degeneration. Mild central canal stenosis. Mild foraminal stenosis. C6-C7: Beam hardening artifacts. Disc space narrowing. Vertebral endplate degeneration. Bulky bridging anterior osteophytes. Broad-based posterior disc osteophyte complex with uncovertebral joint degeneration. Central canal and neural foramina are patent. C7-T1: Beam hardening artifacts. Central canal patent. Neural foramina patent. UPPER THORACIC SPINE: Not included in the examination. OTHER: There is enlargement of the thyroid gland with inhomogeneous density. Streak artifacts are present. Questionable hypodense nodule right lobe of the thyroid. This measures 16.47 x 14.33 mm in diameter, image 70/series 4. Recommend nonemergent thyroid ultrasound. CT/CT cervical spine wo con IMPRESSION: 1. No acute fracture or vertebral body collapse. 2. Multilevel cervical spondylosis and generalized demineralization. 3. Allowing for streak artifacts, the thyroid gland is enlarged with questionable hypodense nodule on the right. Recommend nonemergent thyroid ultrasound. Electronically authenticated by: NICOLE MUNIZ Date: 03/10/2024 22:35
--- NOTE | 2024-03-10 21:49 | ED_ITS ---
Documented by User: Jessica Bowlesey 03/12/24 15:28 HPI HPI - Fall General Chief Complaint: Fall Stated Complaint: fall Time Seen by Provider: 03/10/24 20:54 Source: patient Mode of arrival: Wheelchair History of Present Illness HPI Narrative: 83-year-old female presents here with a chief complaint of a fall. Patient had an accidental fall tripped over her shoes and landed face first now complains of left shoulder pain. She is on Coumadin. Patient had a small nosebleed after she fell. The injury occurred probably 40 minutes prior to arrival. Small abrasion is noted on her face from her glasses. No active bleeding at this time. Patient has difficulty moving her left arm complains of left shoulder pain. Coumadin the last time medication was checked levels were checked was March 03. Related Data Allergies Allergy/AdvReac Type Severity Reaction Status Date / Time Sulfa (Sulfonamide Allergy Intermediate Rash Verified 03/10/24 20:55 Antibiotics) Opioid HPI Opioid Management Most Recent Pain and Opioid Data: Last Pain Scale 7 03/10/24 21:14 Review of Systems ROS Narrative All Systems are negative except as noted/marked.All systems reviewed and otherwise negative PFSH PFSH Social History Little interest or pleasure in doing things: not at all Feeling down, depressed, or hopeless: not at all Exam Narrative Exam Narrative: Nurses note and vital signs reviewed and patient is not hypoxic. General: The patient appears well and in no apparent distress. Patient is resting comfortably on cart. Skin: Warm, dry, no pallor noted. There is no rash noted. Head: Normocephalic, atraumatic neck: supple, no nuchal rigidity, no pain or tenderness midline Eye: Normal conjunctiva, no drainage, EOMI. PERRL Ears, Nose, Mouth, and Throat: oral mucosa is moist. Noted to left nares, otherwise patent, no active bleeding, right nares patent. Mouth without vesicles. Ear canals patent. Tm's without Erythema Cardiovascular: Regular Rate and Rhythm Respiratory: Patient is in no distress, no accessory muscle use, lungs are clear to auscultation, no wheezing, rales or rhonchi Back: non-tender, no CVA tenderness bilaterally to percussion. GI: abdomen, obese, Normal bowel sounds, no tenderness to palpation, no masses appreciated. No rebound, guarding, or rigidity noted. Musculoskeletal: Tenderness, difficulty with elevation, no acute dislocation noted no midline tenderness to palpation of the clavicle area, no obvious soft tissue swelling, remainder of extremities are within normal limits Neurological: A&O x4, normal speech Psychiatric: Cooperative Constitutional Vital Signs, click to edit/add: Last Vital Signs Temp 98.6 F 03/10/24 20:51 Pulse 78 03/10/24 20:51 Resp 20 03/10/24 20:51 BP 114/73 03/10/24 20:51 Pulse Ox 96 03/10/24 20:51 O2 Del Method Room Air 03/10/24 20:51 Course Vital Signs Vital signs: Vital Signs Temperature 98.6 F 03/10/24 20:51 Pulse Rate 78 03/10/24 20:51 Respiratory Rate 20 03/10/24 20:51 Blood Pressure 114/73 03/10/24 20:51 Pulse Oximetry 96 03/10/24 20:51 Oxygen Delivery Method Room Air 03/10/24 20:51 Temperature 98.6 F 03/10/24 20:51 Pulse Rate 78 03/10/24 20:51 Respiratory Rate 20 03/10/24 20:51 Blood Pressure 114/73 03/10/24 20:51 Pulse Oximetry 96 03/10/24 20:51 Oxygen Delivery Method Room Air 03/10/24 20:51 MDM - Fall MDM Narrative Medical decision making narrative: 83-year-old female presents here with a chief complaint of a fall. Patient had an accidental fall tripped over her shoes and landed face first now complains of left shoulder pain. extremity is neurovascularly intact upon arrival to er. She is on Coumadin. Patient had a small nosebleed after she fell.no acute bleed at this time. The injury occurred probably 40 minutes prior to arrival. Small abrasion is noted on her face from her glasses. No active bleeding at this time. Patient has difficulty moving her left arm complains of left shoulder pain. Coumadin the last time medication was checked levels were checked was March 03. patient is alert and oriented, denies head or neck injury. transfer of care to Dr Cruz at end of shift prior to completion of xrays. patient fell at home. she takes coumadin. care transferred at end of PA shift. Patient injured shoulder and struck her head. no LOC. xray left shoulder positive humeral neck fracture. CTs brain and C-spine without acute findings. patient ambulates with cane at home and has assistance to help her at home. placed in a sling and discharged home Differential Diagnosis Differential diagnosis: Likely dislocation of shoulder region and other Medical Records Attestation: I reviewed the patient's medical records. Lab Data Labs: Lab Results 03/10/24 Range/Units 23:18 PT 23.6 H (9.0-11.6) sec INR 2.43 Imaging Data Chest x-ray: Radiologist's impression: ITS Impressions Cervical Spine CT 03/10/24 21:00 IMPRESSION: 1. No acute fracture or vertebral body collapse. 2. Multilevel cervical spondylosis and generalized demineralization. 3. Allowing for streak artifacts, the thyroid gland is enlarged with questionable hypodense nodule on the right. Recommend nonemergent thyroid ultrasound. Electronically authenticated by: NICOLE MUNIZ Date: 03/10/2024 22:[address] 03/10/24 21:00 IMPRESSION: No CT evidence of acute intracranial abnormality. Senescent changes, as described. Mild paranasal sinus disease, as described. Recommend clinical correlation for acute sinusitis. Electronically authenticated by: HALINA UNLU Date: 03/10/2024 22:26 Shoulder X-Ray 03/10/24 21:00 IMPRESSION: Acute comminuted three-part proximal left humeral fracture involving the greater tuberosity and proximal metadiaphysis and the surgical neck region. Correlate with CT for surgical planning. Electronically authenticated by: DINO LE Date: 03/10/2024 22:39 Discharge Plan Discharge Chief Complaint: Fall Clinical Impression: Fracture of humerus Patient Disposition: Home, Self-Care Print Language: [place] Instructions: Arm Fracture in Adults (ED), How to Use a Sling (ED) Additional Instructions: follow up with Dr Adams or with your orthopedic surgeon Referrals: Emre Eduardo MD [Primary Care Provider] - 1 week Surjit Adams MD [Physician] - 1 week Discharge Date/Time: 03/11/24 02:06 Documented by User: Woodrow Cruz MD 03/11/24 01:29 HPI HPI - Fall General Chief Complaint: Fall Stated Complaint: fall Time Seen by Provider: 03/10/24 20:54 Related Data Allergies Allergy/AdvReac Type Severity Reaction Status Date / Time Sulfa (Sulfonamide Allergy Intermediate Rash Verified 03/10/24 20:55 Antibiotics) Opioid HPI Opioid Management Most Recent Pain and Opioid Data: Last Pain Scale 7 03/10/24 21:14 PFSH PFSH Social History Little interest or pleasure in doing things: not at all Feeling down, depressed, or hopeless: not at all Exam Constitutional Vital Signs, click to edit/add: Last Vital Signs Temp 98.6 F 03/10/24 20:51 Pulse 78 03/10/24 20:51 Resp 20 03/10/24 20:51 BP 114/73 03/10/24 20:51 Pulse Ox 96 03/10/24 20:51 O2 Del Method Room Air 03/10/24 20:51 Course Vital Signs Vital signs: Vital Signs Temperature 98.6 F 03/10/24 20:51 Pulse Rate 78 03/10/24 20:51 Respiratory Rate 20 03/10/24 20:51 Blood Pressure 114/73 03/10/24 20:51 Pulse Oximetry 96 03/10/24 20:51 Oxygen Delivery Method Room Air 03/10/24 20:51 Temperature 98.6 F 03/10/24 20:51 Pulse Rate 78 03/10/24 20:51 Respiratory Rate 20 03/10/24 20:51 Blood Pressure 114/73 03/10/24 20:51 Pulse Oximetry 96 03/10/24 20:51 Oxygen Delivery Method Room Air 03/10/24 20:51 MDM - Fall MDM Narrative Medical decision making narrative: patient fell at home. she takes coumadin. care transferred at end of PA shift. Patient injured shoulder and struck her head. no LOC. xray left shoulder positive humeral neck fracture. CTs brain and C-spine without acute findings. patient ambulates with cane at home and has assistance to help her at home. placed in a sling and discharged home Lab Data Labs: Lab Results 03/10/24 Range/Units 23:18 PT 23.6 H (9.0-11.6) sec INR 2.43 Imaging Data Chest x-ray: Radiologist's impression: ITS Impressions Cervical Spine CT 03/10/24 21:00 IMPRESSION: 1. No acute fracture or vertebral body collapse. 2. Multilevel cervical spondylosis and generalized demineralization. 3. Allowing for streak artifacts, the thyroid gland is enlarged with questionable hypodense nodule on the right. Recommend nonemergent thyroid ultrasound. Electronically authenticated by: NICOLE MUNIZ Date: 03/10/2024 22:[address] 03/10/24 21:00 IMPRESSION: No CT evidence of acute intracranial abnormality. Senescent changes, as described. Mild paranasal sinus disease, as described. Recommend clinical correlation for acute sinusitis. Electronically authenticated by: HALINA UNLU Date: 03/10/2024 22:26 Shoulder X-Ray 03/10/24 21:00
[2024-03-10 23:38] LABS: INR 2.43; Prothrombin Time 23.6 sec (9.0-11.6)
== END 2024-03-11 02:06 | disposition home or self-care (01) ==
PROVIDERS: Emergency Provider Internal Medicine; PCP Family Medicine
DX: S42.232A 3-part fracture of surgical neck of left humerus, initial encounter for closed fracture (principal); S00.81XA Abrasion of other part of head, initial encounter; W01.0XXA Fall on same level from slipping, tripping and stumbling without subsequent striking against object, initial encounter; Z79.01 Long term (current) use of anticoagulants; M47.812 Spondylosis without myelopathy or radiculopathy, cervical region
CPT/HCPCS: 36415; 70450; 72125; 73030; 85610; 99285

== ENCOUNTER 2024-03-24 13:12 | Inpatient (IN) | payer MEDICARE, OTHER, SELFPAY ==
[2024-03-24] VITALS (40 sets, daily range): BP systolic 67–117; BP diastolic 38–76; PULSE 79–117; TEMP 36.4–36.9; O2SAT 71–100; BMI 26.6; BMI 32.7
--- NOTE | 2024-03-24 13:30 | ECG_ITS ---
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
--- NOTE | 2024-03-24 13:33 | ED.GENADUL1 ---
HPI HPI - General Adult General Chief complaint: Altered Mental Status Stated complaint: ALTERED MENTAL Time Seen by Provider: 03/24/24 13:24 Source: patient History of Present Illness HPI narrative: Patient is an 83-year-old female who presents to the emergency department by ambulance for increased weakness, confusion. [id number] at bedside is the primary historian as the patient has a history of dementia and the patient's at bedside states he is not able to answer questions. Vfwoycib-qw-gbs states that the patient had a fall 2 weeks ago, she was seen in this emergency department and diagnosed with a left humerus fracture. She was discharged home, followed up with orthopedics. Cgxibfmg-ia-ydt states that the patient has not been doing well at home and has been going downhill ever since the fall . states she has not been getting up or moving around, she has not been eating and drinking well. She was treated for bronchitis 2 weeks ago, she just finished those antibiotics within the last 2 days. Daughter is concerned she may have pneumonia. No objective fevers at home. Patient was complaining of shortness of breath several days ago, EMS noted hypoxia on arrival however the patient arrived to the emergency department with no oxygen in place. She does not wear home oxygen. Patient is able to answer some questions. She denies pain at this time. She is on Coumadin. Related Data Home Medications ?Medication ?Instructions ?Recorded ?Confirmed albuterol sulfate 90 mcg/actuation 2 puff inhalation Q4H PRN 03/24/24 03/24/24 aerosol inhaler shortness of breath or wheezing amlodipine 2.5 mg tablet 2.5 mg PO DAILY 03/24/24 03/24/24 aspirin 81 mg chewable tablet 81 mg PO DAILY 03/24/24 03/24/24 (Aspirin Childrens) carbidopa 25 mg-levodopa 100 mg 2 tab PO Q12H 03/24/24 03/24/24 tablet fenofibrate nanocrystallized 145 145 mg PO BEDTIME 03/24/24 03/24/24 mg tablet fluoxetine 20 mg capsule 20 mg PO DAILY 03/24/24 03/24/24 furosemide 40 mg tablet 40 mg PO DAILY 03/24/24 03/24/24 glipizide 5 mg tablet 2.5 mg PO DAILY 03/24/24 03/24/24 levothyroxine 125 mcg tablet 125 mcg PO DAILY 03/24/24 03/24/24 lisinopril 10 mg tablet 10 mg PO DAILY 03/24/24 03/24/24 loratadine 10 mg tablet 10 mg PO Q24H 03/24/24 03/24/24 meloxicam 15 mg tablet 15 mg PO DAILY 03/24/24 03/24/24 metformin 500 mg tablet,extended 500 mg PO DAILY 03/24/24 03/24/24 release 24 hr nitroglycerin 0.4 mg sublingual 0.4 mg sublingual Q5M PRN chest 03/24/24 03/24/24 tablet pain pioglitazone 45 mg tablet 45 mg PO DAILY 03/24/24 03/24/24 pregabalin 75 mg capsule 75 mg PO Q12H 03/24/24 03/24/24 simvastatin 20 mg tablet 20 mg PO BEDTIME 03/24/24 03/24/24 warfarin 1 mg tablet 1 mg PO DAILY 03/24/24 03/24/24 Allergies Allergy/AdvReac Type Severity Reaction Status Date / Time Sulfa (Sulfonamide Allergy Intermediate Rash Verified 03/24/24 13:34 Antibiotics) Opioid HPI Opioid Management Most Recent Opioid Data: Last Pain Scale 7 03/10/24 21:14 Review of Systems ROS Constitutional Denies: fever or chills Ears, nose, mouth, and throat Denies: throat pain or nasal congestion Cardiovascular Denies: chest pain Respiratory Reports: shortness of breath; Denies: cough Gastrointestinal Denies: abdominal pain, nausea or vomiting Musculoskeletal Reports: extremity pain; Denies: back pain or neck pain Integumentary/Breast Denies: rash Neurological Denies: numbness in extremities or weakness in extremities Hematologic/Lymphatic Reports: easy bruising and easy bleeding PFSH PFSH Social History Little interest or pleasure in doing things: not at all Feeling down, depressed, or hopeless: not at all Exam Narrative Exam Narrative: Gen.: Awake, alert, in no distress Head: Normocephalic, atraumatic ENT: Moist mucous membranes, ecchymosis noted to the left cheek from previous fall Respiratory: Patient with tachypnea, breathing with mouth open and nasal cannula present Cardio: Tachycardia, irregular Gastrointestinal: Abdomen is soft, nondistended and nontender to palpation Extremities: Left upper extremity with ecchymosis diffusely over the proximal humerus Psych: Normal mood and affect Neuro: No focal neuro deficit Skin: Warm, dry, intact Constitutional Vital Signs, click to edit/add: Last Vital Signs Temp 97.9 F 03/24/24 15:40 Pulse 97 H 03/24/24 15:40 Resp 19 03/24/24 15:40 BP 103/64 03/24/24 15:40 Pulse Ox 99 03/24/24 15:14 O2 Del Method Venturi Mask 03/24/24 14:13 FiO2 35 03/24/24 15:14 Course Vital Signs Vital signs: Vital Signs Temperature 98.5 F 03/24/24 13:18 Pulse Rate 112 H 03/24/24 13:18 Respiratory Rate 24 H 03/24/24 13:18 Blood Pressure 80/42 L 03/24/24 13:18 Pulse Oximetry 87 L 03/24/24 13:18 Oxygen Delivery Method Room Air 03/24/24 13:18 Temperature 97.9 F 03/24/24 15:40 Pulse Rate 97 H 03/24/24 15:40 Respiratory Rate 19 03/24/24 15:40 Blood Pressure 103/64 03/24/24 15:40 Pulse Oximetry 99 03/24/24 15:14 Oxygen Delivery Method Venturi Mask 03/24/24 14:13 Fraction of Inspired Oxygen 35 03/24/24 15:14 Medical Decision Making MDM Narrative Medical decision making narrative: This patient was initially hypoxic and hypotensive on arrival by EMS, no oxygen was then placed by EMS on arrival. Patient was placed on a nasal cannula but she was noted to be mouth breathing so she was transition to a Ventimask with improvement of oxygen saturation. Fluids from EMS were given, blood pressure improved. Patient was noted to have hemoglobin 5.4, elevated BUN consistent with history of GI bleed and dark tarry stools. Initially we did not have a DNR on file for this patient and I did contact her PCP office they do not have one on file either. The patient's xunmbbyz-dv-xto had a lengthy discussion with Dr. Mcgarry at bedside, she produced a DNR comfort care order for the patient from her vehicle. Patient's family is agreeable to blood transfusion, they do not want the patient transferred to a tertiary care facility for higher level of care as she is a comfort care only. Patient's vital signs have stabilized after IV fluids and oxygen administration. CT of the brain, chest x-ray with no evidence of acute process although the patient does have evidence of worsened humeral fracture. Blood was ordered for the patient. She received 2 units in the emergency department. Patient will be admitted for blood transfusion, symptom management and placement in rehab versus skilled. She was admitted to the hospitalist for further evaluation and treatment. She is much more stable at time of admission to [facility]. SHARED APC VISIT, PHYSICIAN ATTESTATION: [id number] I performed a substantive part of the MDM during the patient?s E/M visit. I personally evaluated and examined the patient. I personally made or approved the documented management plan and acknowledge its risk of complications. Medical Records Medical records reviewed: Yes I reviewed the patient's medical records Lab Data Lab results reviewed: Yes I reviewed the patient's lab results Labs: Lab Results 03/24/24 03/24/24 03/24/24 Range/Units 13:50 14:00 14:30 WBC 13.3 H (4.0-11.0) 10^3/uL RBC 1.88 L (4.20-5.40) 10^6/uL Hgb 5.4 L* (12.0-16.0) g/dL Hct 16.7 L* (36.0-48.0) % MCV 88.8 (81.0-99.0) fL MCH 28.7 (26.7-34.0) pg MCHC 32.3 (29.9-35.2) g/dL RDW 17.2 H (11.0-15.0) % Plt Count 227 (150-450) 10^3/uL MPV 13.0 (9.5-13.5) fL Neut % (Auto) 81.4 H (43.0-75.0) % Lymph % (Auto) 10.6 L (20.5-60.0) % [place] % (Auto) 4.9 (1.7-12.0) % Eos % (Auto) 1.1 (0.9-7.0) % Baso % (Auto) 0.4 (0.2-2.0) % Neut # (Auto) 10.8 H (1.4-6.5) 10^3/uL Lymph # (Auto) 1.4 (1.2-3.8) 10^3/uL [place] # (Auto) 0.7 (0.3-0.8) 10^3/uL Eos # (Auto) 0.1 (0.0-0.7) 10^3/uL Baso # (Auto) 0.1 (0.0-0.1) 10^3/uL Abs Immat Gran (auto) 0.21 H (0.00-0.03) 10^3/uL Imm/Tot Granulo (auto) 1.6 H (0.0-0.5) % PT 49.0 H* (9.0-11.6) sec INR 5.47 H* Puncture Site Rr ABG pH 7.442 (7.350-7.450) ABG pCO2 36.9 (35.0-45.0) mmHg ABG pO2 196.0 H (80.0-100.0) mmHg ABG HCO3 25.1 (22.0-26.0) mmol/L ABG O2 Saturation >100.0 % ABG Base Excess 1.0 (-2.0-2.0) mmol/L Deon Test Positive (POSITIVE) VBG pH 7.504 H (7.330-7.430) VBG pCO2 29.1 L (40.0-52.0) mmHg O2 Liters/Min 12 FiO2 50 % Sodium 145 (136-145) mmol/L Potassium 4.4 (3.5-5.1) mmol/L Chloride 112 H (98-107) mmol/L Carbon Dioxide 23.9 (21.0-32.0) mmol/L Anion Gap 13.5 BUN 138.0 H* (7.0-18.0) mg/dL Creatinine 3.51 H (0.55-1.02) mg/dL Est GFR ( Amer) 15 L (>=60) Est GFR (Non-Af Amer) 12 L (>=60) BUN/Creatinine Ratio 39.3 Glucose 244 H (74-106) mg/dL Lactate 1.1 (0.4-2.0) mmol/L Calcium 8.8 (8.5-10.1) mg/dL Total Bilirubin 0.4 (0.2-1.0) mg/dL AST 17 (15-37) U/L ALT 7 L (14-59) U/L Alkaline Phosphatase 15 L (46-116) U/L Ammonia 21 (11-32) umol/L Troponin I High Sens 60.1 H* (4.0-51.3) pg/mL NT-Pro-B Natriuret Pep 3862.0 H* (<=1800.0) pg/mL Total Protein 4.7 L (6.4-8.2) g/dL Albumin 1.8 L (3.4-5.0) g/dL Globulin 2.9 g/dL Albumin/Globulin Ratio 0.6 Blood Type O Positive Antibody Screen Negative Crossmatch See Detail Imaging Data CT scan - head: Attestation: I have reviewed the pertinent imaging results. Radiologist's impression: ITS Impressions Chest X-Ray 03/24/24 14:55 IMPRESSION: 1. No acute cardiopulmonary process. 2. Left femoral neck fracture with significant displacement and concern for dislocation of the humeral head from the glenoid. Significant change in position and alignment compared to the 03/10/2024 study. Electronically authenticated by: TAWNY MUJICA Date: 03/24/2024 15:[address] 03/24/24 14:55 IMPRESSION: No acute intracranial process. Electronically authenticated by: LINDEN MCFADDEN Date: 03/24/2024 15:22 ECG Data Attestation: I personally reviewed and interpreted this ECG as follows: (Atrial fibrillation with RVR at a rate of 111, no obvious acute ST elevation or ectopy. EKG reviewed by attending physician) Discharge Plan Discharge Chief Complaint: Altered Mental Status Patient Disposition: Admitted As Inpatient Time of Disposition Decision: 15:56 Prescriptions / Home Meds: No Action aspirin [Aspirin Childrens] 81 mg tablet,chewable 81 mg PO DAILY carbidopa-levodopa 25-100 mg tablet 2 tab PO Q12H fluoxetine 20 mg capsule 20 mg PO DAILY furosemide 40 mg tablet 40 mg PO DAILY glipizide 5 mg tablet 2.5 mg PO DAILY levothyroxine 125 mcg tablet 125 mcg PO DAILY lisinopril 10 mg tablet 10 mg PO DAILY meloxicam 15 mg tablet 15 mg PO DAILY metformin 500 mg tablet extended release 24 hr 500 mg PO DAILY pioglitazone 45 mg tablet 45 mg PO DAILY simvastatin 20 mg tablet 20 mg PO BEDTIME loratadine 10 mg tablet 10 mg PO Q24H fenofibrate nanocrystallized 145 mg tablet 145 mg PO BEDTIME amlodipine 2.5 mg tablet 2.5 mg PO DAILY warfarin 1 mg tablet 1 mg PO DAILY pregabalin 75 mg capsule 75 mg PO Q12H albuterol sulfate 90 mcg/actuation HFA aerosol inhaler 2 puff INHALATION Q4H PRN (Reason: shortness of breath or wheezing) nitroglycerin 0.4 mg tablet, sublingual 0.4 mg sublingual Q5M PRN (Reason: chest pain) Print Language: Tanzanian Referrals: Emre Eduardo MD [Primary Care Provider] - 1 week
[2024-03-24 14:02] LABS: Basophils Absolute Auto 0.1 10^3/uL (0.0-0.1); Basophils Percent Auto 0.4 % (0.2-2.0); Eosinophils Absolute Auto 0.1 10^3/uL (0.0-0.7); Eosinophils Percent Auto 1.1 % (0.9-7.0); Immature Granulocytes Abs Auto 0.21 10^3/uL (0.00-0.03); Immature Granulocytes Pct Auto 1.6 % (0.0-0.5); Lymphocytes Absolute Auto 1.4 10^3/uL (1.2-3.8); Lymphocytes Percent Auto 10.6 % (20.5-60.0); Mean Corpuscular HGB Conc 32.3 g/dL (29.9-35.2); Mean Corpuscular Hemoglobin 28.7 pg (26.7-34.0); Mean Corpuscular Volume 88.8 fL (81.0-99.0); Monocytes Absolute Auto 0.7 10^3/uL (0.3-0.8); Monocytes Percent Auto 4.9 % (1.7-12.0); Neutrophils Absolute Auto 10.8 10^3/uL (1.4-6.5); Neutrophils Percent Auto 81.4 % (43.0-75.0); Platelet Count 227 10^3/uL (150-450); Red Blood Count 1.88 10^6/uL (4.20-5.40); Red Cell Distribution Width 17.2 % (11.0-15.0); White Blood Count 13.3 10^3/uL (4.0-11.0)
[2024-03-24 14:05] LABS: pH ABG 7.442 (7.350-7.450)
[2024-03-24 14:05] LABS: PCO2 VBG 29.1 mmHg (40.0-52.0); pH VBG 7.504 (7.330-7.430)
[2024-03-24 14:06] LABS: ABG PCO2 36.9 mmHg (35.0-45.0); Allen Test POSITIVE (POSITIVE); Fractionated Inspired Oxygen 50 %; HCO3 ABG 25.1 mmol/L (22.0-26.0); Liters per Minute 12; O2 Mode VENTI MASK; Oxygen Saturation ABG >100.0 %; Puncture Site RR
[2024-03-24 14:08] LABS: Hematocrit 16.7 % (36.0-48.0); Hemoglobin 5.4 g/dL (12.0-16.0)
[2024-03-24 14:13] LABS: Ammonia 21 umol/L (11-32)
[2024-03-24 14:21] LABS: Lactate/Lactic Acid 1.1 mmol/L (0.4-2.0)
[2024-03-24 14:25] LABS: Alanine Aminotransferase 7 U/L (14-59); Albumin Globulin Ratio 0.6; Albumin Level 1.8 g/dL (3.4-5.0); Alkaline Phosphatase 15 U/L (46-116); Anion Gap 13.5; Aspartate Amino Transferase 17 U/L (15-37); BUN Creatinine Ratio 39.3; Bilirubin Total 0.4 mg/dL (0.2-1.0); Calcium 8.8 mg/dL (8.5-10.1); Carbon Dioxide 23.9 mmol/L (21.0-32.0); Chloride 112 mmol/L (98-107); Estimated GFR (African America 15 (>=60); Estimated GFR (Non-African Ame 12 (>=60); Globulin 2.9 g/dL; Glucose 244 mg/dL (74-106); Potassium 4.4 mmol/L (3.5-5.1); Sodium 145 mmol/L (136-145); Total Protein 4.7 g/dL (6.4-8.2)
[2024-03-24 14:29] LABS: INR 5.47; Troponin I High Sensitivity 60.1 pg/mL (4.0-51.3)
[2024-03-24] MEDS: PANTOPRAZOLE SODIUM 40 MG VIAL IV (14:40)
--- NOTE | 2024-03-24 14:55 | CT_ITS ---
The [address] [address] Patient Name: JOSE D LENTZ MRN: [id number] date: 1940 Sex: F Assigned Patient Location: ER Current Patient Location: ER Accession/Order Number: [id number] Exam Date: 03/24/2024 14:45 Report Date: 03/24/2024 15:22 At the request of: KENNEDY SCHAFER Procedure: CT head/brain wo con EXAM: CT head/brain wo con HISTORY: Altered mental status, fall 2 weeks ago, altered mental status x2 days COMPARISON: CT head 03/10/2024. TECHNIQUE: Axial noncontrast CT imaging of the head was performed with coronal and sagittal reformats. This CT exam was performed using one or more of the following dose reduction techniques: Automated exposure control, adjustment of the MA and/or kV according to patient size, or use of iterative reconstruction technique. FINDINGS: Calvarium/skull base: No evidence of acute fracture or destructive lesion. Paranasal sinuses: Mild mucosal thickening of the paranasal sinuses without substantial air-fluid level. Brain: No acute intracranial hemorrhage. No acute large vascular territory infarct. Minimal parenchymal volume loss. Tiny remote lacunar infarct versus prominent perivascular space involving the right lentiform nucleus No mass lesion or mass effect. No hydrocephalus. CT/CT head/brain wo con IMPRESSION: No acute intracranial process. Electronically authenticated by: LINDEN MCFADDEN Date: 03/24/2024 15:22
--- NOTE | 2024-03-24 14:55 | XR_ITS ---
The [address] [address] Patient Name: JOSE D LENTZ MRN: [id number] date: 1940 Sex: F Assigned Patient Location: ER Current Patient Location: ER Accession/Order Number: [id number] Exam Date: 03/24/2024 14:50 Report Date: 03/24/2024 15:34 At the request of: KENNEDY SCHAFER Procedure: XR chest 1V EXAMINATION: XR chest 1V HISTORY: Altered mental status COMPARISON: XR chest 04-20, XR shoulder left 03/10/2024 FINDINGS: LUNGS: No significant pulmonary parenchymal abnormalities. VASCULATURE: No increased pulmonary vasculature. PLEURA: No pneumothorax, effusion, or pleural thickening. CARDIAC: No cardiomegaly or cardiac silhouette abnormality. MEDIASTINUM: No visible mass or adenopathy. BONES: Fracture of the left humerus surgical neck with displacement one full bone width and retraction approximately 3 cm. Humeral head is low riding within the glenoid versus dislocated. OTHER: Negative. XR/XR chest 1V IMPRESSION: 1. No acute cardiopulmonary process. 2. Left femoral neck fracture with significant displacement and concern for dislocation of the humeral head from the glenoid. Significant change in position and alignment compared to the 03/10/2024 study. Electronically authenticated by: TAWNY MUJICA Date: 03/24/2024 15:34
[2024-03-24] MEDS: PHYTONADIONE (VIT K1) 5 MG in 0.9 % SODIUM CHLORIDE 50 ML 202 MG IV (15:06)
--- NOTE | 2024-03-24 16:40 | P.HP_ITS ---
HPI H&P: HPI History of Present Illness Chief complaint: ALTERED MENTAL Narrative: 83-year-old female who lives with her family had a fall about 2 weeks ago and ended up fracturing her humerus. Patient since her fall has had progressive decline in function with increasing confusion, decreased consciousness/arousable and increasing generalized weakness and shortness of breath. For past 2 days according to the daughter, there has not been able to get her up and out of bed at all. Patient was brought in by her family for evaluation in ER and was found to have acute respiratory failure with hypoxia with pulse ox as low as 82%, hypovolemic shock secondary to blood loss anemia with hemoglobin of 5.4. Patient is on Coumadin because of history of A-fib and her INR was elevated at 5.47. According to the family, patient has had black tarry stools for past couple of days. She has prior history of colon cancer and had partial colectomy and was supposed to have outpatient colonoscopy for cancer surveillance. I was unable to to obtain any meaningful information from the patient because of her confusion and most of the history was obtained from patient's and [id number] who is her primary caregiver Opioid HPI Opioid Management Most Recent Pain and Opioid Data: Last Pain Scale 7 03/10/24 21:14 Review of Systems ROS Status of ROS unobtainable due to mental status PFSH [facility] Medical History (Updated 03/24/24 @ 16:51 by Shaikh Joreg MD) HTN (hypertension) ?I10 - Essential (primary) hypertension (ICD-10) Type 2 diabetes mellitus ?E11.9 - Type 2 diabetes mellitus without complications (ICD-10) COPD (chronic obstructive pulmonary disease) ?J44.9 - Chronic obstructive pulmonary disease, unspecified (ICD-10) Alzheimer's dementia ?G30.9 - Alzheimer's disease, unspecified (ICD-10) ?F02.80 - Dementia in other diseases classified elsewhere, unspecified severity, without behavioral disturbance, psychotic disturbance, mood disturbance, and anxiety (ICD-10) Parkinson disease ?G20.A1 - Parkinson's disease without dyskinesia, without mention of fluctuations (ICD-10) H/O malignant neoplasm of colon ?Z85.038 - Personal history of other malignant neoplasm of large intestine (ICD-10) Permanent atrial fibrillation ?I48.21 - Permanent atrial fibrillation (ICD-10) Surgical History (Updated 03/24/24 @ 16:47 by Shaikh Jorge MD) History of partial colectomy ?Z90.49 - Acquired absence of other specified parts of digestive tract (ICD- 10) Social History Little interest or pleasure in doing things: not at all Feeling down, depressed, or hopeless: not at all Meds Home Medications and Allergies Home Medications ?Medication ?Instructions ?Recorded ?Confirmed ?Type albuterol sulfate 90 mcg/actuation 2 puff inhalation Q4H PRN 03/24/24 03/24/24 History aerosol inhaler shortness of breath or wheezing amlodipine 2.5 mg tablet 2.5 mg PO DAILY 03/24/24 03/24/24 History aspirin 81 mg chewable tablet 81 mg PO DAILY 03/24/24 03/24/24 History (Aspirin Childrens) carbidopa 25 mg-levodopa 100 mg 2 tab PO Q12H 03/24/24 03/24/24 History tablet fenofibrate nanocrystallized 145 145 mg PO BEDTIME 03/24/24 03/24/24 History mg tablet fluoxetine 20 mg capsule 20 mg PO DAILY 03/24/24 03/24/24 History furosemide 40 mg tablet 40 mg PO DAILY 03/24/24 03/24/24 History glipizide 5 mg tablet 2.5 mg PO DAILY 03/24/24 03/24/24 History levothyroxine 125 mcg tablet 125 mcg PO DAILY 03/24/24 03/24/24 History lisinopril 10 mg tablet 10 mg PO DAILY 03/24/24 03/24/24 History loratadine 10 mg tablet 10 mg PO Q24H 03/24/24 03/24/24 History meloxicam 15 mg tablet 15 mg PO DAILY 03/24/24 03/24/24 History metformin 500 mg tablet,extended 500 mg PO DAILY 03/24/24 03/24/24 History release 24 hr nitroglycerin 0.4 mg sublingual 0.4 mg sublingual Q5M PRN chest 03/24/24 03/24/24 History tablet pain pioglitazone 45 mg tablet 45 mg PO DAILY 03/24/24 03/24/24 History pregabalin 75 mg capsule 75 mg PO Q12H 03/24/24 03/24/24 History simvastatin 20 mg tablet 20 mg PO BEDTIME 03/24/24 03/24/24 History warfarin 1 mg tablet 1 mg PO DAILY 03/24/24 03/24/24 History Allergies Allergy/AdvReac Type Severity Reaction Status Date / Time Sulfa (Sulfonamide Allergy Intermediate Rash Verified 03/24/24 13:34 Antibiotics) Exam Constitutional Vital Signs, click to edit/add: Last Vital Signs Temp 97.8 F 03/24/24 16:36 Pulse 100 H 03/24/24 16:36 Resp 22 H 03/24/24 16:36 BP 72/58 L 03/24/24 16:36 Pulse Ox 98 03/24/24 16:36 O2 Del Method Venturi Mask 03/24/24 14:13 FiO2 35 03/24/24 15:14 Results Labs Labs: Short CBC 03/24/24 Range/Units 13:50 WBC 13.3 H (4.0-11.0) 10^3/uL Hgb 5.4 L* (12.0-16.0) g/dL Hct 16.7 L* (36.0-48.0) % Plt Count 227 (150-450) 10^3/uL BMP 03/24/24 13:50 Sodium 145 Potassium 4.4 Chloride 112 H Carbon Dioxide 23.9 BUN 138.0 H* Creatinine 3.51 H Glucose 244 H Calcium 8.8 Liver Function 03/24/24 Range/Units 13:50 Total Bilirubin 0.4 (0.2-1.0) mg/dL AST 17 (15-37) U/L ALT 7 L (14-59) U/L Alkaline Phosphatase 15 L (46-116) U/L Albumin 1.8 L (3.4-5.0) g/dL ABG ABG results: 03/24/24 03/24/24 13:50 14:00 ABG pH 7.442 ABG pCO2 36.9 ABG pO2 196.0 H ABG HCO3 25.1 ABG O2 Saturation >100.0 ABG Base Excess 1.0 VBG pH 7.504 H VBG pCO2 29.1 L Assessment and Plan Assessment and Plan (1) Metabolic encephalopathy: Assessment and Plan: CTH - no acute finding. Confused/drowsy likely due to hypoxia/hypovolemic shock No sig Cardiopulm finding on XR. Check UA. (2) Acute respiratory failure with hypoxia: Assessment and Plan: Likely due to severe anemia. On 3 L Mouth breather - has venti mask on for oxygenation. (3) Hypovolemic shock: Assessment and Plan: due to severe anemia. Received 2 L IVF. Getting blood tx currently. Check H&H post transfusion (4) Anemia due to acute blood loss: Assessment and Plan: Likely UGIB due to elevated INR. 2 units tx ordered. post transfusion H&H at 10 pm. Needs close hemodynamic monitoring. (5) Upper GI bleed: Assessment and Plan: On IV protonix. No evidence of active GIB. Monitor H&H closely. Tx to keep Hb above 8. (6) LUCIANA (acute kidney injury): Assessment and Plan: unsure of patients baseline renal function but has no known hx of CKD. Presented with Cr of 3.5. likely pre renal due to hypovolemia. Monitor Cr. On IVF. Received 2 L IVF bolus. Now receiving blood transfusion (7) Supratherapeutic INR: Assessment and Plan: Patient received Vit K. Recheck INR with morning labs. (8) Generalized weakness: Assessment and Plan: Likely due to anemia/hypovolemia. PT/OT eval. (9) Fracture of humerus: Assessment and Plan: conservative management due to patients advanced age and risk factors. Qualifiers: Encounter type: subsequent encounter Humerus Location: surgical neck Fracture type: closed Fracture morphology: 2-part Fracture alignment: displaced Laterality: left Fracture healing: with nonunion Qualified Code(s): S42.222K - 2-part displaced fracture of surgical neck of left humerus, subsequent encounter for fracture with nonunion (10) COPD (chronic obstructive pulmonary disease): Assessment and Plan: Wheezing on exam. Normal CXR. Ordered duonebs. Avoiding Steroids for now due to increased risk of worsening GIB. Qualifiers: COPD type: chronic bronchitis Chronic bronchitis type: simple Qualified Code(s): J41.0 - Simple chronic bronchitis (11) Alzheimer's dementia: Assessment and Plan: Forgetful with intermittent worsening confusion at baseline. Currently very drowsy/confused. Qualifiers: Alzheimer's disease onset: late onset Dementia severity: severe Dementia behavioral or psychological symptom: with mood disturbance Qualified Code(s): G30.1 - Alzheimer's disease with late onset; F02.C3 - Dementia in other diseases classified elsewhere, severe, with mood disturbance (12) Parkinson disease: Assessment and Plan: cw Sinemet. Qualifiers: Dyskinesia presence: with dyskinesia Fluctuating manifestations: without fluctuating manifestations Qualified Code(s): G20.B1 - Parkinson's disease with dyskinesia, without mention of fluctuations (13) H/O malignant neoplasm of colon: Assessment and Plan: s/p colectomy in 2018. (14) Permanent atrial fibrillation: Assessment and Plan: Reasonably controlled HR. Hold coumadin has INR is supra therapeutic (15) Type 2 diabetes mellitus: Assessment and Plan: SSI while inpatient. Hold oral hypoglycemics. 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 Hold anti hypertensives. Qualifiers: Hypertension type: primary hypertension Qualified Code(s): I10 - Essential (primary) hypertension
--- NOTE | 2024-03-24 17:00 | PM.CSD1 ---
Advance Care Planning Advance Care Planning Discussion Advance care planning discussion summary: 83 y o female presents today with Metabolic encephalopathy, acute resp failure with hypoxia, hypovolemic shock due to acute GI bleed and given her age, medical hx is at high risk of poor prognosis and outcome. Patient is confused and unable to engage in a meaningful conversation. I had a detailed discussion with patient's spouse (POA) , Her daughter and daughter in law (primary caregiver) about her prognosis, goals of care and end of life care treatment. I explained the science and philosophy of hospice care. Patient already has DN CC in place. She had previously mentioned and expressed that she did not want heroic measures. Family members who were present during the conversation with discuss this with the rest of the family. I will revisit this discussion with rest of family members tomorrow to decide if they are agreeable for hospice evaluation. Does patient have a terminal or chronic,progressive disease such that prognosis is less than 6 months: Yes
--- OUTSIDE RECORDS SUMMARY | 2024-03-24 20:16 | XMS_ITS | CCD ---
Author Organization [facility] Care Team Providers Care Budget Clerk Name Role Phone JOSE MANUEL BEAUCHAMP Unavailable Unavailable EMRE GUILLEN Unavailable UnavailEmre Peterson Unavailable Unavailable Unavailable MINDY, DR EMRE Naqvi Primary Care Unavailable BURNETT, DR STACY Herbert Admitting Unavailable BURNETT, DR STACY Herbert Attending Unavailable BURNETT, DR STACY Herbert Consulting Unavailable MICHELLE MARTINS Consulting Unavailable ROB YUEN Consulting Unavailable NADEREPiero, DR EMRE Naqvi Admitting Unavailable NADERER, DR [...] II, Hero Grover Referring Unav ailable Sofía HOPSON, Hero Grover Attending Unav ailEmre Cohn MD Primary Care Provider HERO BENITEZ Attending Unavailable MILTONEREEMRE Harry Primary Care Unavailgrecia e HERNAN HOLMAN Referring Unavailable NADEREPiero, EMRE Primary Care Unavailable HERNAN HOLMAN Attending Unavailable EMRE GUILLEN Referring Unavailable NADEREPiero, EMRE Primary Care Unavailable NADEREPiero, EMRE Primary Care Unavailable HERNAN HOLMAN Attending Unavailable EMRE GUILLEN Referring Unavailable MILTONEREPiero, EMRE Primary Care Unavailable PREET BRANNON Attending Unavailable PREET BRANNON Referring Unavailable NADEREPiero, EMRE Attending Unavailable DARYL MALONE Attending Unavailable NADERER, EMRE Attending Unavailable LINDY MINA Attending Unavailable DARYL MALONE Referring Unavailable NADERER, EMRE Attending Unavailable NADERER, EMRE Attending Unavailable PREET BRANNON Attending Unavailable EMRE GUILLEN Attending Unavailable Allergies Allergy Classification Reported Allergen(s) Allergy Type Date of Onset Reaction(s) Facility (10 sources) Sulfonamides (Antibiotic); Translations: [Sulfa Drugs] Allergy to drug (finding) Anaphylaxis -[facility] y [address] DO Work Phone: (1 source) Sulfonamides (Antibiotic) Drug allergy (disorder) [facility] (3 sources) Sulfonamides (Antibiotic); Translations: [SULFA (SULFONAMIDE ANTIBIOTICS)] Drug Allergy 8 Anaphylaxis, [facility] (1 source) ADHESIVE TAPE-SILICONES; Translations: [ADHESIVE TAPE-SILICONES] Propensity to adverse reactions to drug (disorder) 8 [facility] Medications Current Medications Medication Drug Class(es) Dates Sig (Normalized) Sig (Original) [id number] actuat albuterol 0.09 mg/actuat metered dose [...] 0 Active take 2 tablets by mo ut in the morning, then take 1 tablet [...] mg tablet Indications: Coronary artery disease involving [place] coronary artery of [place] heart without angina pectoris , Status post [...] 05-08-2021 Chronic Other aftercare (2 sources) Other jail (current) drug therapy; Translations: [OTH [facility] CURRENT DRUG THERAPY] Onset: 05-08-2021 Episodic Other [...] Unclassified (1 source) Athscl heart disease of [place] coronary artery w/o ang pctrs / I25.10(ICD-9) [...] / R26.2(ICD-9) Onset: 03-24-2018 Unclassified (1 source) senior care (current) use of oral hypoglycemic drugs / [...] Onset: 05-08-2021 Episodic Other aftercare (1 source) senior care (current) use of aspirin; Translations: [[employer]PER CURRENT USE OF ASPIRIN] Onset: 05-08-2021 Episodic Other aftercare (1 source) rn long term care (current) use of oral hypoglycemic drugs; Translations: [[facility] USE ORAL HYPOGLYCEMIC DX] Onset: 05-08-2021 Episodic Other aftercare (1 source) senior care (current) use of anticoagulants; Translations: [[facility] CURRNT USE ANTICOAGULANTS] Onset: 05-08-2021 Episodic Other [...] 10-29-19 ABSOLUTE BASOPHIL 0.0 X10E9/L Normal 0.0-0.2 [facility] Comment on above: Performed By: #### C BCA, HA1C, CMP, FEPR, 08718-9, LIVR, , 3016-3, 6-4 #### [facility] ([id number]) [address], [address] [place] [address] ABSOLUTE NEUTROPHIL 1.9 X10E9/L Normal 1.5-6.6 [facility] Comment on above: Performed By: #### C BCA, HA1C, CMP, FEPR, 18117-8, LIVR, , 3016-3, 2276-4 #### [facility] ([id number]) [address], [address] [place] [address] Basophils/100 WBC (Bld) 1.2 % Normal [facility] Comment on above: Performed By: #### C BCA, HA1C, CMP, FEPR, 98226-2, LIVR, , 3015-3, 2275- #### [facility] ([id number]) [address], [address] [place] [address] Eosinophils (Bld) [#/Vol] 0.2 10*3/uL Normal 0.0-0.4 [facility] Comment on above: Performed By: #### C BCA, HA1C, CMP, FEPR, 10019-5, LIVR, , 3015-08, 2275- #### [facility] ([id number]) [address], [address] [place] [address] Eosinophils/100 WBC (Bld) 4.3 % Normal [facility] Comment on above: Performed By: #### C BCA, HA1C, CMP, FEPR, 91555-8, LIVR, , 3015-08, 2275-09 #### [facility] ([id number]) [address] [place] [address] Erythrocyte distribution width (RBC) [Ratio] 17.0 % High 11.5-15.0 [facility] Comment on above: Performed By: #### C BCA, HA1C, CMP, FEPR, 69117-8, LIVR, , 3015-08, 2275- #### [facility] ([id number]) [address], [address] [place] [address] Hematocrit (Bld) [Volume fraction] 32.1 % Low 35-47 [facility] Comment on above: Performed By: #### C BCA, HA1C, CMP, FEPR, 83960-0, LIVR, 2038- 6, 3016-3, 2276-4 #### [facility] ([id number]) [address], [address] [place] [address] Hemoglobin (Bld) [Mass/Vol] 10.8 g/dL Low 11.7-15.5 [facility] Comment on above: Performed By: #### C BCA, HA1C, CMP, FEPR, 26971-2, LIVR, 2038- 6, 3016-3, 2276-4 #### [facility] ([id number]) [address] [address] [address] [place] [address] Lymphocytes (Bld) [#/Vol] 1.5 10*3/uL Normal 1.0-3.5 [facility] Comment on above: Performed By: #### C BCA, HA1C, CMP, FEPR, 77850-4, LIVR, 2038- 6, 6-3, 6-4 #### [facility] ([id number]) [address], [facility] [address] [place] [address] Lymphocytes/100 WBC (Bld) 36.6 % Normal [facility] Comment on above: Performed By: #### C BCA, HA1C, CMP, FEPR, 03749-2, LIVR, 2038- 6, 6-3, 6-4 #### [facility] ([id number]) [address], [address] [place] [address] MCH (RBC) [Entitic mass] 28.3 pg Normal 27-34 [facility] Comment on above: Performed By: #### C BCA, HA1C, CMP, FEPR, 21986-9, LIVR, 2038- 6, 6-3, 2276-4 #### [facility] ([id number]) [address], [address] [place] [address] MCHC (RBC) [Mass/Vol] 33.5 g/dL Normal 32-36 [facility] Comment on above: Performed By: #### C BCA, HA1C, CMP, FEPR, 81106-6, LIVR, 2038- , 6-3, 6-4 #### [facility] ([id number]) [address], [address] [place] [address] MCV (RBC) [Entitic vol] 84 fL Normal 80-100 [facility] Comment on above: Performed By: #### C BCA, HA1C, CMP, FEPR, 50064-2, LIVR, 2038- , 6-3, 2275-4 #### [facility] ([id number]) [address], [address] [place] [address] Monocytes (Bld) [#/Vol] 0.5 10*3/uL Normal 0-0.9 [facility] Comment on above: Performed By: #### C BCA, HA1C, CMP, FEPR, 54903-8, LIVR, , 3015-3, 2275- #### [facility] ([id number]) [address], [address] [place] [address] Monocytes/100 WBC (Bld) 12.9 % Normal [facility] Comment on above: Performed By: #### C BCA, HA1C, CMP, FEPR, 53086-4, LIVR, , 3015-3, 2275- #### [facility] ([id number]) [address], [address] [place] [address] Neutrophils/100 WBC (Bld) 45.0 % Normal [facility] Comment on above: Performed By: #### C BCA, HA1C, CMP, FEPR, 61806-3, LIVR, , 3015-3, 2275-4 #### [facility] ([id number]) [address], [address] [place] [address] Platelet mean volume (Bld) [Entitic vol] 10.7 fL Normal 7-12 [facility] Comment on above: Performed By: #### C BCA, HA1C, CMP, FEPR, 68943-3, LIVR, 2039- 6, 3016-3, 2276-4 #### [facility] ([id number]) [address], [address] [place] [address] Platelets (Bld) [#/Vol] 150 10*3/uL Normal 150-450 [facility] Comment on above: Performed By: #### C BCA, HA1C, CMP, FEPR, 10454-6, LIVR, 2039- 6, 3016-3, 2276-4 #### [facility] ([id number]) [address], [address] [place] [address] RBC COUNT 3.81 X10E12/L Normal 3.80-5.20 [facility] Comment on above: Performed By: #### C BCA, HA1C, CMP, FEPR, 16520-1, LIVR, 9- 6, 3016-3, 2276-4 #### [facility] ([id number]) [address], [address] [place] [address] WBC (Bld) [#/Vol] 4.1 10*3/uL Normal 4.0-11.0 [facility] Comment on above: Performed By: #### C BCA, HA1C, CMP, FEPR, 17191-4, LIVR, 2039- 6, 3016-3, 2276-4 #### [facility] ([id number]) [address], [address] [place] [address] COMPREHENSIVE METABOLIC PANE Adriel 10-29-2023 Albumin [Mass/Vol] 4.1 g/dL Normal 3.2-5.3 [facility] Comment on above: Performed By: #### C BCA, HA1C, CMP, FEPR, 48888-9, LIVR, 2039- 6, 3016-3, 2276-4 #### [facility] ([id number]) [address], [address] [place] [address] ALP [Catalytic activity/Vol] 20 U/L Low 39-130 [facility] Comment on above: Performed By: #### C BCA, HA1C, CMP, FEPR, 52184-5, LIVR, 2039- 6, 3016-3, 2276-4 #### [facility] ([id number]) [address], [address] [place] [address] ALT [Catalytic activity/Vol] 3 U/L Normal 0-31 [facility] Comment on above: Performed By: #### C BCA, HA1C, CMP, FEPR, 30870-3, LIVR, 9- 6, 3016-3, 2276-4 #### [facility] ([id number]) [address], [address] [place] [address] Anion gap [Moles/Vol] 7 mmol/L Normal 5-15 [facility] Comment on above: Performed By: #### C BCA, HA1C, CMP, FEPR, 33978-0, LIVR, 2038- 6, 3016-3, 2276-4 #### [facility] ([id number]) [address], [address] [place] [address] AST [Catalytic activity/Vol] 20 U/L Normal 0-41 [facility] Comment on above: Performed By: #### C BCA, HA1C, CMP, FEPR, 95998-5, LIVR, 9- 6, 3016-3, 2276-4 #### [facility] ([id number]) [address], [address] [place] [address] Bilirubin [Mass/Vol] 0.4 mg/dL Normal 0.3-1.2 [facility] Comment on above: Performed By: #### C BCA, HA1C, CMP, FEPR, 86058-2, LIVR, 2038- 6, 3016-3, 2276-4 #### [facility] ([id number]) [address], [address] [place] [address] Calcium [Mass/Vol] 10.0 mg/dL Normal 8.5-10.5 [facility] Comment on above: Performed By: #### C BCA, HA1C, CMP, FEPR, 32260-4, LIVR, 2039- 6, 3016-3, 2276-4 #### [facility] ([id number]) [address], [address] [place] [address] Chloride [Moles/Vol] 103 mmol/L Normal 98-109 [facility] Comment on above: Performed By: #### C BCA, HA1C, CMP, FEPR, 27616-8, LIVR, 2038- 6, 6-3, 6-4 #### [facility] ([id number]) [address], [address] [place] [address] CO2 [Moles/Vol] 33 mmol/L High 22-32 [facility] Comment on above: Performed By: #### C BCA, HA1C, CMP, FEPR, 09287-4, LIVR, 2038- 6, 6-3, 6-4 #### [facility] ([id number]) [address], [address] [place] [address] Creatinine [Mass/Vol] 1.80 mg/dL High 0.40-1.00 [facility] Comment on above: Result Comment: METH OD TRACEABLE TO IDMS STANDARD Performed By: #### C BCA, HA1C, CMP, FEPR, 40452-6, LIVR, 2038-6, 3016-3, 2276-4 #### [facility] ([id number]) [address], [address] [place] [address] GFR/1.73 sq M.predicted among non-blacks MDRD (S/P/Bld) [Vol rate/Area] 28 mL/min/{1.73_m2} Low >59 [facility] Comment on above: Result Comment: Reported eGFR is based on the CKD-EPI 2020 equation that does not use a race coefficient. Performed By: #### C BCA, HA1C, CMP, FEPR, 59922-8, LIVR, 2038-6, 3016-3, 2276-4 #### [facility] ([id number]) [address], [address] [place] [address] Glucose [Mass/Vol] 58 mg/dL Low 65-99 [facility] Comment on above: Performed By: #### C BCA, HA1C, CMP, FEPR, 19268-3, LIVR, 2038- 6, 6-3, 2276-4 #### [facility] ([id number]) [address], [address] [place] [address] Potassium [Moles/Vol] 4.3 mmol/L Normal 3.5-5.0 [facility] Comment on above: Performed By: #### C BCA, HA1C, CMP, FEPR, 46999-3, LIVR, 2038- 6, 6-3, 2276-4 #### [facility] ([id number]) [address], [address] [place] [address] Protein [Mass/Vol] 6.8 g/dL Normal 6.0-8.0 [facility] Comment on above: Performed By: #### C BCA, HA1C, CMP, FEPR, 94365-9, LIVR, 2038- 6, 6-3, 2276-4 #### [facility] ([id number]) [address], [address] [place] [address] Sodium [Moles/Vol] 143 mmol/L Normal 134-146 [facility] Comment on above: Performed By: #### C BCA, HA1C, CMP, FEPR, 87777-8, LIVR, 2038- 6, 3016-3, 2276-4 #### [facility] ([id number]) [address] [address] [place] [address] Urea nitrogen [Mass/Vol] 37 mg/dL High 5-27 [facility] Comment on above: Performed By: #### C BCA, HA1C, CMP, FEPR, 66046-0, LIVR, 2038- , 3016-3, 2276-4 #### [facility] ([id number]) [address] [address] Carcinoembryonic Ag [Mass/Vo l]on 10-29-2023 CEA 2.6 ng/mL Normal 0.0-3.0 [facility] Comment on above: Result Comment: 0.0-3.0 ng/mL FOR NON SMOKERS 0.0-5.0 ng/mL FOR SMOKERS The method used for this test is Umberto Anonymous You DXI chemiluminescent immunoassay. Values obtained by different assay methods cannot be used interchangeably. Performed By: #### C BCA, HA1C, CMP, FEPR, 27381-3, LIVR, 2038-11, 3015-3, 6-4 #### [facility] ([id number]) [address] [address] FERRITINon 10-29-2023 Ferritin [Mass/Vol] 70 ng/mL Normal 11-307 [facility] Comment on above: Performed By: #### C BCA, HA1C, CMP, FEPR, 91077-7, LIVR, 2038- 6, 6-3, 2276-4 #### [facility] ([id number]) [address] [address] [place] [address] HGB A1C (GLYCO-HGB)on 2023 Glucose [Mass/Vol] 126 mg/dL Normal [facility] Comment on above: Performed By: #### C BCA, HA1C, CMP, FEPR, 34136-0, LIVR, , 6-3, 2276-4 #### [facility] ([id number]) [address] [address] HbA1c (Bld) [Mass fraction] 6.0 % High 4.4-5.6 [facility] Comment on above: Result Comment: NOTE ADA Guidelines Result HgbA1c Normal : less than 5.7 % Prediabetes : 5.7 % to 6.4 % Diabetes : > 6.4 % Use with caution in patients with abnormal hemoglobin variants as the half-life of red blood cells and in vivo glycation rates are affected. Performed By: #### C BCA, HA1C, CMP, FEPR, 39768-0, LIVR, 6, 6-3, 6-4 #### [facility] ([id number]) [address] [address] IRON PROFILEon 10-29-2023 Iron [Mass/Vol] 66 ug/dL Normal 50-170 [facility] Comment on above: Performed By: #### C BCA, HA1C, CMP, FEPR, 66303-3, LIVR, 6, 6-3, 6-4 #### [facility] ([id number]) [address] [address] IRON BINDING 469 ug/dL High 250-425 [facility] Comment on above: Performed By: #### C BCA, HA1C, CMP, FEPR, 89740-0, LIVR, 2038- 6, 6-3, 2276-4 #### [facility] ([id number]) [address] [place] [address] IRON SATURATION 14 % SATURATION Low 15-50 [facility] Comment on above: Performed By: #### C BCA, HA1C, CMP, FEPR, 92177-2, LIVR, , 3015-3, 6-4 #### [facility] ([id number]) [address] [facility] [place] [address] LIVER PANELon 10-29-2023 Bilirubin.direct [Mass/Vol] 0.1 mg/dL Normal 0.0-0.4 [facility] Comment on above: Performed By: #### C BCA, HA1C, CMP, FEPR, 02285-7, LIVR, , 3015-3, 2275-4 #### [facility] ([id number]) [address] [facility] [place] [address] Lipid 1996 panelon Cholesterol [Mass/Vol] 142 mg/dL Low 150-200 [facility] Comment on above: Performed By: #### C BCA, HA1C, CMP, FEPR, 16746-9, LIVR, , 3, 2275-4 #### [facility] ([id number]) [address] [facility] [place] [address] Cholesterol in HDL [Mass/Vol] 51 mg/dL Normal >39 [facility] Comment on above: Result Comment: HDL <40 mg/dL - High Risk HDL > or = 40mg/dL- Desirable HDL >60 mg/dL - Negative Risk Performed By: #### C BCA, HA1C, CMP, FEPR, 74374-6, LIVR, 2038-11, 3, 2275-4 #### [facility] ([id number]) [address] [facility] [place] [address] Cholesterol in LDL [Mass/Vol] 66 mg/dL Normal <130 [facility] Comment on above: Result Comment: LDL <100 mg/dL - Desirable LDL >160 mg/dL - High Risk Performed By: #### C BCA, HA1C, CMP, FEPR, 94535-6, LIVR, 9-6, 3016-3, 2276-4 #### [facility] ([id number]) [address], [address] [place] [address] Cholesterol in VLDL [Mass/Vol] 25 mg/dL Normal 0-30 [facility] Comment on above: Performed By: #### C BCA, HA1C, CMP, FEPR, 63771-1, LIVR, 9- 6, 3016-3, 2276-4 #### [facility] ([id number]) [address], [address] [place] [address] CHOLESTEROL:HDL 2.8 Normal 1.0-5.0 [facility] Comment on above: Performed By: #### C BCA, HA1C, CMP, FEPR, 27216-5, LIVR, 9- 6, 3016-3, 2276-4 #### [facility] ([id number]) [address], [address] [place] [address] Triglyceride [Mass/Vol] 123 mg/dL Normal 27-150 [facility] Comment on above: Performed By: #### C BCA, HA1C, CMP, FEPR, 68607-8, LIVR, 2038- 6, 3016-3, 2276-4 #### [facility] ([id number]) [address] [place] [address] MICROALBUMIN - ALBUMIN:CREAT ININE URINE RATIOon 10-29-2023 ALB/CREAT RATIO NOT CALCULATED Normal 0.0-30.0 [facility] Comment on above: Result Comment: Result for Albumin/Creatinine Ratio cannot be reliably calculated because urine albumin and or urine creatinine is below the detection limit of the assay. Performed By: #### M ALBU #### [facility] ([id number]) [address] [place] [address], [address] [place] [address] Albumin DL <= 20 mg/L (U) [Mass/Vol] mg/dL Normal 0.0-1.9 [facility] Comment on above: Performed By: #### M ALBU #### [facility] ([id number]) [address] [place] [address], [address] [place] [address] URINE CREAT 47.85 mg/dL Normal [facility] Comment on above: Performed By: #### M ALBU #### [facility] ([id number]) [address] [place] [address], [address] [place] [address] TSH Qnon 10-29-2023 TSH 0.69 uIU/mL Normal 0.49-4.67 [facility] Comment on above: Performed By: #### C BCA, HA1C, CMP, FEPR, 02115-8, LIVR, 2039- 6, 3016-3, 2276-4 #### [facility] ([id number]) [address] [place] [address], [address] [place] [address] Office Visit (Cardiology)on 05-15-2022 Follow-up visit Diagnoses/Problems Assessed Status post angioplasty (V45.89) (Z98.62) Persistent atrial fibrillation (427.31) (I48.19) Hypertension (401.9) (I10) Hyperlipidemia (272.4) (E78.5) Coronary artery disease involving [place] coronary artery of [place] heart without angina pectoris (414.01) (I25.10) Diabetes mellitus (250.00) (E11.9) Former smoker (V15.82) (Z87.891) Quit 2007 Class 2 obesity with body mass index (BMI) of 35.0 to 35.9 in adult (278.00,V85.35) (E66.9,Z68.35) Orders Class 2 obesity with body mass index (BMI) of 35.0 to 35.9 in adult Healthy Weight Tips; Status:Complete; Done: [id number] Some eating tips that can help you lose weight.; Status:Complete; Done: [id number] Coronary artery disease involving [place] coronary artery of [place] heart without angina pectoris Renew: Aspirin EC 81 MG Oral Tablet Delayed Release; 1 tablet twice weekly Coronary artery disease involving [place] coronary artery of [place] heart without angina pectoris, Hyperlipidemia Renew: Simvastatin 20 MG Oral Tablet; TAKE 1 TABLET AT BEDTIME Coronary artery disease involving [place] coronary artery of [place] heart without angina pectoris, Hypertension Renew: Lisinopril 10 MG Oral Tablet; TAKE 1 TABLET DAILY SocHx: Former smoker Tobacco Use Screening; Status:Complete; Done: [id number] Tobacco Use Screening; Status:Complete; Done: [id number] Patient Instructions Please bring all medicines, vitamins, [...] skin annamarie (more content not included)... Normal [facility] Tobacco Screening.on 022 Adult depression screening assessment No [facility] [employer] [facility] 250 DO Work Phone: Fall risk assessment a) No falls within the last year [facility] [employer] 250 DO Work Phone: Tobacco use status CP b) No [facility] 250 DO Work Phone: GLYCOHEMOGLOBIN A1Con 2021 ADA RECOMMENDATION SEE BELOW Normal [facility] Comment on above: Result Comment: ADA RECOMMENDED LIMIT 4.0 - 6.0 ADA THERAPEUTIC TARGET < 7.0 ACTION SUGGESTED > 7.0 Performed By: #### M ALBR #### [facility] [address] [address] [address] Mariama Carreno Glucose [Mass/Vol] 143 mg/dL Normal [facility] Comment on above: Performed By: #### M ALBR #### [facility] [address] [address] [address] Mariama Carreno HbA1c (Bld) [Mass fraction] 6.6 % Critically high 4.5-6.2 [facility] Comment on above: Performed By: #### M ALBR #### [facility] [address] [place] [address] Dr. Mariama Carreno LIPID PROFILEon 12-12-2021 CHOL-HDL RATIO NORM SEE BELOW Normal [facility] Comment on above: Result Comment: 3.3 - 4.4 LOW RISK 4.4 - 7.1 AVERAGE RISK 7.1 - 11.0 MODERATE RISK >11.0 HIGH RISK Performed By: #### P OCGLUC #### [facility] [address] [place] [address] Dr. Mariama Carreno Cholesterol [Mass/Vol] 179 mg/dL Normal <=200 [facility] Comment on above: Performed By: #### P OCGLUC #### [facility] [address] [place] [address] Dr. Mariama Carreno Cholesterol in HDL [Mass/Vol] 59 mg/dL Normal 40-60 [facility] Comment on above: Performed By: #### P OCGLUC #### [facility] [address] [address] [address] Mariama Carreno Cholesterol in LDL [Mass/Vol] 96.8 mg/dL Normal [facility] Comment on above: Performed By: #### P OCGLUC #### [facility] [address] [place] [address] Dr. Mariama Carreno Cholesterol.total/Cho lesterol in HDL [Mass ratio] 3.0 {ratio} Normal [facility] Comment on above: Performed By: #### P OCGLUC #### [facility] [address] [address] [address] Mariama Carreno HDL NORMAL > or = 60 mg/dl - LO W CARDIOVASCULAR RISK <40 mg/dl - HIGH CARDIOVASCULAR RISK Normal [facility] Comment on above: Performed By: #### P OCGLUC #### [facility] [address] [address] [address] Mariama Carreno LDL CALC NORMAL SEE BELOW Normal [facility] Comment on above: Result Comment: <100 mg/dl OPTIMAL 100 - 129 mg/dl NEAR OR ABOVE OPTIMAL 130 - 159 mg/dl BORDERLINE HIGH 160 - 189 mg/dl HIGH >190 mg/dl VERY HIGH Performed By: #### P OCGLUC #### [facility] [address] [place] [address] Dr. Mariama Carreno Triglyceride [Mass/Vol] 116 mg/dL Normal <=150 [facility] Comment on above: Performed By: #### P OCGLUC #### [facility] [address] [place] [address] Dr. Mariama Carreno VLDL CALC 23.2 mg/dL Normal [facility] Comment on above: Performed By: #### P OCGLUC #### [facility] [address] [place] [address] Dr. Mariama Carreno MICROALBUMIN, RAND URon 11-29 mALB <0.6 Normal <=30.0 [facility] Comment on above: Performed By: #### M ALBR #### [facility] [address] [address] [address] Mariama Carreno TSHon 12-12-2021 TSH 0.338 uIU/mL Critically low 0.358-3.740 [facility] Comment on above: Performed By: #### P OCGLUC #### [facility] [address] [place] [address] Dr. Mariama Carreno VITAMIN D 25 OHon 12-12-2021 VIT D 25-OH 31.6 ng/mL Normal [facility] Comment on above: Performed By: #### V ITAD #### [facility] [address] [place] [address] Dr. Mariama Carreno VIT D RANGES SEE BELOW Normal [facility] Comment on above: Result Comment: <20 ng/mL Vit D deficient 20 - <30 ng/mL Vit D insufficient 30 - 100 ng/mL Vit D sufficient >100 ng/mL Potential Toxicity Performed By: #### V ITAD #### [facility] [address] [address] [address] Mariama Carreno Tobacco Screening.on Fall risk assessment a) No falls within the last year [facility] [address] DO Work Phone: Tobacco use status CPHS b) No [facility] 250 DO Work Phone: GLYCOHEMOGLOBIN A1Con 2020 ADA RECOMMENDATION ADA THERAPEUTIC TARGET 6.0 - 7.0 ACTION SUGGESTED > 7.0 Normal [facility] Comment on above: Performed By: #### A 1C #### [facility] [address] [address] [address] Mariama Carreno Glucose [Mass/Vol] 128 mg/dL Normal [facility] Comment on above: Performed By: #### A 1C #### [facility] [address] [address] [address] Mariama Carreno HbA1c (Bld) [Mass fraction] 6.1 % Critically high <=6.0 [facility] Comment on above: Performed By: #### A 1C #### [facility] [address] [address] [address] Mariama Carreno CARDIAC KIRTI 3-6on 1 CK [Catalytic activity/Vol] 131 U/L Normal 30-135 [facility] Comment on above: Performed By: #### M ALBR #### [facility] [address] [address] [address] Mariama Carreno CK.MB [Mass/Vol] 1.59 ng/mL Normal <=2.37 [facility] Comment on above: Performed By: #### M ALBR #### [facility] [address] [address] [address] Mariama Carreno HSTROP 284.8 pg/mL Critically high 4.0-35.5 [facility] Comment on above: Result Comment: CUT- OFF POINTS HAVE BEEN ESTABLISHED BASED ON THE FOURTH UNIVERSAL DEFINITIONS OF MYOCARDIAL INFARCTION. THE UPPER REFERENCE LIMIT (URL) OF TROPONIN, DEFINED THE 99TH PERCENTILE OF cTnI DISTRIBUTION IN A REFERENCE POPULATION, HAS BEEN CONFIRMED THE DECISION THRESHOLD FOR [place] DIAGNOSIS. Performed By: #### M ALBR #### [facility] [address] [address] [address] Mariama Carreno CK [Catalytic activity/Vol] 120 U/L Normal 30-135 [facility] Comment on above: Performed By: #### C MREP #### [facility] [address] [address] [address] Mariama TORRES.MB [Mass/Vol] 1.83 ng/mL Normal <=2.37 [facility] Comment on above: Performed By: #### C MREP #### [facility] [address] [address] [address] Mariama Carreno HSTROP 259.4 pg/mL Critically high 4.0-35.5 [facility] Comment on above: Result Comment: CUT- OFF POINTS HAVE BEEN ESTABLISHED BASED ON THE FOURTH UNIVERSAL DEFINITIONS OF MYOCARDIAL INFARCTION. THE UPPER REFERENCE LIMIT (URL) OF TROPONIN, DEFINED THE 99TH PERCENTILE OF cTnI DISTRIBUTION IN A REFERENCE POPULATION, HAS BEEN CONFIRMED THE DECISION THRESHOLD FOR [place] DIAGNOSIS. Test Repeated. Critical Value Verified Performed By: #### C MREP #### [facility] [address] [address] [address] Mariama Carreno CARDIAC KIRTI ADMITon 021 CK [Catalytic activity/Vol] 117 U/L Normal 30-135 [facility] Comment on above: Performed By: #### B MONET CMADM #### [facility] [address] [address] [address] Mariama TORRES.MB [Mass/Vol] 1.87 ng/mL Normal <=2.37 [facility] Comment on above: Performed By: #### B MONET CMADM #### [facility] [address] [address] [address] Mariama Carreno HSTROP 300.0 pg/mL Critically high 4.0-35.5 [facility] Comment on above: Result Comment: CUT- OFF POINTS HAVE BEEN ESTABLISHED BASED ON THE FOURTH UNIVERSAL DEFINITIONS OF MYOCARDIAL INFARCTION. THE UPPER REFERENCE LIMIT (URL) OF TROPONIN, DEFINED THE 99TH PERCENTILE OF cTnI DISTRIBUTION IN A REFERENCE POPULATION, HAS BEEN CONFIRMED THE DECISION THRESHOLD FOR [place] DIAGNOSIS. Test Repeated. Critical Value Verified Performed By: #### B MONET, CMADM #### [facility] [address] [place] [address] Dr. Mariama Carreno MIGUEL 101.0 ng/mL Critically high <=61.5 [facility] Comment on above: Performed By: #### B MONET, FAITHDM #### [facility] [address] [place] [address] Dr. Mariama Carreno CBC AUTO DIFFon 04-01-2021 BASO # 0.0 103/ul Normal 0.0-0.1 [facility] Comment on above: Performed By: #### M ALBR #### [facility] [address] [place] [address] Dr. Mariama Carreno Basophils/100 WBC (Bld) 0.4 % Normal 0.2-2.0 [facility] Comment on above: Performed By: #### M ALBR #### [facility] [address] [place] [address] Dr. Mariama Carreno EO # 0.1 103/ul Normal 0.0-0.7 [facility] Comment on above: Performed By: #### M ALBR #### [facility] [address] [place] [address] Dr. Mariama Carreno Eosinophils/100 WBC (Bld) 2.5 % Normal 0.9-7.0 [facility] Comment on above: Performed By: #### M ALBR #### [facility] [address] [place] [address] Dr. Mariama Carreno Erythrocyte distribution width (RBC) [Ratio] 0.0 % Critically low 11.0-15.0 [facility] Comment on above: Performed By: #### M ALBR #### [facility] [address] [place] [address] Dr. Mariama Carreno Hematocrit (Bld) [Volume fraction] 33.3 % Critically low 36.0-48.0 [facility] Comment on above: Performed By: #### M ALBR #### [facility] [address] [place] [address] Dr. Mariama Carreno Hemoglobin (Bld) [Mass/Vol] 9.7 g/dL Critically low 12.0-16.0 [facility] Comment on above: Performed By: #### M ALBR #### [facility] [address] [place] [address] Dr. Mariama Carreno IG # 0.02 10e3/ul Normal 0.00-0.03 [facility] Comment on above: Performed By: #### M ALBR #### [facility] [address] [place] [address] Dr. Mariama Carreno IG % 0.4 % Normal 0.0-0.5 [facility] Comment on above: Performed By: #### M ALBR #### [facility] [address] [place] [address] Dr. Mariama Carreno LYMPH # 0.9 103/ul Critically low 1.2-3.8 [facility] Comment on above: Performed By: #### M ALBR #### [facility] [address] [place] [address] Dr. Mariama Carreno Lymphocytes/100 WBC (Bld) 19.3 % Critically low 20.5-60.0 [facility] Comment on above: Performed By: #### M ALBR #### [facility] [address] [place] [address] Dr. Mariama Carreno MANUAL DIFF REQ NO Normal [facility] Comment on above: Performed By: #### M ALBR #### [facility] [address] [place] [address] Dr. Mariama Carreno MCH (RBC) [Entitic mass] 24.0 pg Critically low 26.7-34.0 [facility] Comment on above: Performed By: #### M ALBR #### [facility] [address] [place] [address] Dr. Mariama Carreno MCHC (RBC) [Mass/Vol] 29.1 g/dL Critically low 29.9-35.2 [facility] Comment on above: Performed By: #### M ALBR #### [facility] [address] [place] [address] Dr. Mariama Carreno MCV (RBC) [Entitic vol] 82.4 fL Normal 81.0-99.0 [facility] Comment on above: Performed By: #### M ALBR #### [facility] [address] [place] [address] Dr. Mariama Carreno MONO # 0.5 103/ul Normal 0.3-0.8 [facility] Comment on above: Performed By: #### M ALBR #### [facility] [address] [place] [address] Dr. Mariama Carreno Monocytes/100 WBC (Bld) 11.9 % Normal 1.7-12.0 [facility] Comment on above: Performed By: #### M ALBR #### [facility] [address] [place] [address] Dr. Mariama Carreno NEUT # 2.9 103/ul Normal 1.4-6.5 [facility] Comment on above: Performed By: #### M ALBR #### [facility] [address] [place] [address] Dr. Mariama Carreno Neutrophils/100 WBC (Bld) 65.5 % Normal 43.0-75.0 [facility] Comment on above: Performed By: #### M ALBR #### [facility] [address] [place] [address] Dr. Mariama Carreno Platelet mean volume (Bld) [Entitic vol] 10.2 fL Normal 9.5-13.5 [facility] Comment on above: Performed By: #### M ALBR #### [facility] [address] [place] [address] Dr. Mariama Carreno PLT 240 103/ul Normal 150-450 [facility] Comment on above: Performed By: #### M ALBR #### [facility] [address] [place] [address] Dr. Mariama Carreno RBC 4.04 106/ul Critically low 4.20-5.40 [facility] Comment on above: Performed By: #### M ALBR #### [facility] [address] [place] [address] Dr. Mariama Carreno WBC 4.5 103/ul Normal 4.0-11.0 [facility] Comment on above: Performed By: #### M ALBR #### [facility] [address] [place] [address] Dr. Mariama Carreno Covid-19 PCR ([facility])on SARS-CoV-2 (COVID-19) RNA DAKOTA+probe Ql (Unsp spec) Not detected Normal NOT DETECTED [facility] Comment on above: Result Comment: This test is not yet approved or cleared by the [place] FDA. When there are no FDA-approved or cleared tests available, and other criteria are met, FDA can make tests available under an emergency access mechanism called an Emergency Use Authorization (EUA). The EUA for this test is supported by the [place] of Health and Human Service's (HHS's) declaration [...] SARS-CoV-2. Performed By: #### M ALBR #### [facility] [address] [place] [address] Dr. Mariama Carreno ER URINE PROFILEon 1 Bilirubin Ql (U) Negative Normal NEGATIVE [facility] Comment on above: Performed By: #### P OCGLUC #### [facility] [address] [place] [address] Dr. Mariama Carreno Clarity (U) CLEAR Normal CLEAR [facility] Comment on above: Performed By: #### P OCGLUC #### [facility] [address] [address] [address] Mariama Carreno Color (U) LT. YELLOW Normal YELLOW [facility] Comment on above: Performed By: #### P OCGLUC #### [facility] [address] [address] [address] Mariama MCDONALD A micrscopic examination will be performed if indicated. Normal [facility] Comment on above: Performed By: #### P OCGLUC #### [facility] [address] [address] [address] Mariama Carreno Glucose Ql (U) Negative Normal NEGATIVE [facility] Comment on above: Performed By: #### P OCGLUC #### [facility] [address] [address] [address] Mariama Carreno Hemoglobin Ql (U) SMALL Abnormal NEGATIVE [facility] Comment on above: Performed By: #### P OCGLUC #### [facility] [address] [address] [address] Mariama Carreno Ketones Ql (U) Negative Normal NEGATIVE [facility] Comment on above: Performed By: #### P OCGLUC #### [facility] [address] [address] [address] Mariama Carreno LEUKOCYTES Negative Normal NEGATIVE [facility] Comment on above: Performed By: #### P OCGLUC #### [facility] [address] [place] [address] Dr. Mariama Carreno Nitrite Ql (U) Negative Normal NEGATIVE [facility] Comment on above: Performed By: #### P OCGLUC #### [facility] [address] [address] [address] Mariama Carreno pH (U) 6.0 [pH] Normal 5-9 [facility] Comment on above: Performed By: #### P OCGLUC #### [facility] [address] [place] [address] Dr. Mariama Carreno SPEC GRAVITY 1.015 Normal 1.005-<=1.025 [facility] Comment on above: Performed By: #### P OCGLUC #### [facility] [address] [place] [address] Dr. Mariama Carreno UA PROTEIN Negative Normal NEGATIVE/ TRACE [facility] Comment on above: Performed By: #### P OCGLUC #### [facility] [address] [place] [address] Dr. Mariaam Carreno UR MICRO IND INDICATED Normal [facility] Comment on above: Performed By: #### P OCGLUC #### [facility] [address] [place] [address] Dr. Mariama Carreno Urobilinogen Qn (U) 0.2 {Jaky'U}/dL Normal 0.2 - 1. 0 [facility] Comment on above: Performed By: #### P OCGLUC #### [facility] [address] [place] [address] Dr. Mariama Carreno POINT OF CARE GLUCOSEon 10-0 Glucose [Mass/Vol] 184 mg/dL Critically high [facility] Comment on above: Performed By: #### M ALBR #### [facility] [address] [place] [address] Dr. Mariama Carreno Glucose [Mass/Vol] 199 mg/dL Critically high [facility] Comment on above: Performed By: #### P OCGLUC #### [facility] [address] [place] [address] Dr. Mariama Carreno Glucose [Mass/Vol] 217 mg/dL Critically high [address] [place] [address] Comment on above: Performed By: #### P OCGLUC #### [facility] [address] [place] [address] Dr. Mariama Carreno Glucose [Mass/Vol] 175 mg/dL Critically high -106 [facility] Comment on above: Performed By: #### M ALBR #### [facility] [address] [place] [address] Dr. Mariama Carreno Glucose [Mass/Vol] 136 mg/dL Critically high [address] [place] [address] Comment on above: Performed By: #### M ALBR #### [facility] [address] [place] [address] Dr. Mariama Carreno Glucose [Mass/Vol] 119 mg/dL Critically high 74-106 [facility] Comment on above: Performed By: #### P OCGLUC #### [facility] [address] [place] [address] Dr. Mariama Carreno Glucose [Mass/Vol] 103 mg/dL Normal 74-106 [facility] Comment on above: Performed By: #### M ALBR #### [facility] [address] [place] [address] Dr. Mariama Carreno Glucose [Mass/Vol] 112 mg/dL Critically high 74-106 [facility] Comment on above: Performed By: #### M ALBR #### [facility] [address] [place] [address] Dr. Mariama Carreno Glucose [Mass/Vol] 64 mg/dL Critically low 74-106 [facility] Comment on above: Performed By: #### P OCGLUC #### [facility] [address] [place] [address] Dr. Mariama Carreno PROF CHEM 8 (BAS METB)on Anion gap [Moles/Vol] 9.3 mmol/L Normal [facility] Comment on above: Performed By: #### B FAITH HEALYDM #### [facility] [address] [place] [address] Dr. Mariama Carreno Calcium [Mass/Vol] 9.8 mg/dL Normal 8.4-10.2 [facility] Comment on above: Performed By: #### B MONET CMADM #### [facility] [address] [place] [address] Dr. Mariama Carreno Chloride [Moles/Vol] 101 mmol/L Normal 98-107 [facility] Comment on above: Performed By: #### B MONET CMADM #### [facility] [address] [place] [address] Dr. Mariama Carreno CO2 [Moles/Vol] 31.2 mmol/L Critically high 22.0-30.0 [facility] Comment on above: Performed By: #### B MONET CMADM #### [facility] [address] [place] [address] Dr. Mariama Carreno Creatinine [Mass/Vol] 1.30 mg/dL Critically high 0.52-1.04 [facility] Comment on above: Performed By: #### B MONET, VANITA #### [facility] [address] [address] [address] Mariama Carreno EGFR-AF SAMOAN 48 mL/min/1.73m2 Critically low >=60 [facility] Comment on above: Performed By: #### B MONET, CMADM #### [facility] [address] [address] [address] Mariama Carreno EGFR-NON AF SAMOAN 40 mL/min/1.73m2 Critically low >=60 [facility] Comment on above: Performed By: #### B MONET, FAITHDM #### [facility] [address] [address] [address] Mariama Carreno Glucose [Mass/Vol] 87 mg/dL Normal 74-106 [facility] Comment on above: Performed By: #### B MONET, FIATHDM #### [facility] [address] [address] [address] Mariama Carreno Potassium [Moles/Vol] 3.5 mmol/L Normal 3.4-5.0 [facility] Comment on above: Performed By: #### B MONET, FAITHDM #### [facility] [address] [address] [address] Mariama Carreno Sodium [Moles/Vol] 138 mmol/L Normal 137-145 [facility] Comment on above: Performed By: #### B MONET, CMADM #### [facility] [address] [address] [address] Mariama Carreno Urea nitrogen [Mass/Vol] 17.0 mg/dL Normal 7.0-17.0 [facility] Comment on above: Performed By: #### B MONET, FAITHDM #### [facility] [address] [address] [address] Mariama Carreno Urea nitrogen/Creatinine [Mass ratio] 13.1 mg/mg Normal [facility] Comment on above: Performed By: #### B MP, CMADM #### [facility] [address] [place] [address] Dr. Mariama Carreno URINE MICROSCOPIC ONLYon BACTERIA NONE SEEN Normal NONE SEEN [facility] Comment on above: Performed By: #### P OCGLUC #### [facility] [address] [place] [address] Dr. Mariama Carreno Bacteria identified Cx Nom (U) NOT INDICATED Normal [facility] Comment on above: Performed By: #### P OCGLUC #### [facility] [address] [place] [address] Dr. Mariama Carreno CAST NONE SEEN Normal NONE SEEN [facility] Comment on above: Performed By: #### P OCGLUC #### [facility] [address] [place] [address] Dr. Mariama Carreno Crystals LM Nom (Urine sed) NONE SEEN Normal NONE SEEN [facility] Comment on above: Performed By: #### P OCGLUC #### [facility] [address] [place] [address] Dr. Mariama Carreno Epithelial cells LM Ql (Urine sed) FEW Abnormal NONE SEEN /RARE [facility] Comment on above: Performed By: #### P OCGLUC #### [facility] [address] [place] [address] Dr. Mariama Carreno MUCOUS NONE SEEN Normal NONE SEEN [facility] Comment on above: Performed By: #### P OCGLUC #### [facility] [address] [place] [address] Dr. Mariama Carreno RBC 5-10 Abnormal 0-2 [facility] Comment on above: Performed By: #### P OCGLUC #### [facility] [address] [place] [address] Dr. Mariama Carreno WBC NONE SEEN Normal NONE SEEN [facility] Comment on above: Performed By: #### P OCGLUC #### [facility] [address] [place] [address] Dr. Mariama Carreno XR CHEST 1 Von [...] abnormality. Cardiomegaly redemonstrated. Electronically authenticated by: ROB YUEN Date: 2021-04-01 01:17 Normal [facility] CARDIAC STRESS/REST (MIGUEL CARDIAL PERFUSION/MIBI)on 08-18-2020 [facility] CARDIAC STRESS/REST (MYOCARDIAL PERFUSION/MIBI) Patient Name: MARISSA LENTZ STUDY: MYOCARDIAL PERFUSION STRESS TEST WITH LEXISCAN Performing facility: [facility], \[address], [address], \[place] [id number] [facility] Provider: Martin Benitez MD, [facility] PCP: Dr. Cecilia Guillen Supervising provider: Queenie Larios MD INDICATION: CAD; Diabetes mellitus Hyperlipidemia Pre-operative risk assessment for Hernia repair scheduled at [facility] on TBD. HISTORY: Gender: F; Age: 80 y/o ; Height: 162.56 cm; Weight: 88.371847 kg. CAD; Diabetes; Previous [place]; HTN; Arrhythmias; Quit smoking unknown years ago. Cardiac catheterization on 2014. COMPARISON: Previous nuclear testing completed [id number] [facility] at [facility]. ACCESSION NUMBER(S): [id number]; [id number]; [id number] ORDERING CLINICIAN: HERO BENITEZ TECHNIQUE: ONE DAY [...] seen. Electronically signed by: MICHAEL BOURNE MD [facility] CARDIAC STRESS/REST INJE CTIONon 08-18-2020 [facility] CARDIAC STRESS/REST INJECTION Patient Name: MARISSA LENTZ STUDY: MYOCARDIAL PERFUSION STRESS TEST WITH LEXISCAN Performing facility: [facility], \[address], [address], \[address] Provider: Martin Benitez MD, [facility] PCP: Dr. Cecilia Guillen Supervising provider: Queenie Larios MD INDICATION: CAD; Diabetes mellitus Hyperlipidemia Pre-operative risk assessment for Hernia repair scheduled at [facility] on TBD. HISTORY: Gender: F; Age: 80 y/o ; Height: 162.56 cm; Weight: 88.583454 kg. CAD; Diabetes; Previous [place]; HTN; Arrhythmias; Quit smoking unknown years ago. Cardiac catheterization on 2014. COMPARISON: Previous nuclear testing completed [id number] [facility] at [facility]. ACCESSION NUMBER(S): [id number]; [id number]; [id number] ORDERING CLINICIAN: HERO BENITEZ TECHNIQUE: ONE DAY [...] Electronically signed by: MICHAEL BOURNE MD Normal [facility] PART 2 STRESS OR REST (N O CHARGE)on 08-18-2020 [facility] PART 2 STRESS OR REST (NO CHARGE) Patient Name: MARISSA LENTZ STUDY: MYOCARDIAL PERFUSION STRESS TEST WITH [facility]EXISCAN Performing facility: [facility], \n[address] [place] [address], [address], \[place] [id number] [facility] Provider: Martin Benitez MD, FACC PCP: Dr. Cecilia Guillen Supervising provider: Queenie Larios MD INDICATION: CAD; Diabetes mellitus Hyperlipidemia Pre-operative risk assessment for Hernia repair scheduled at [facility] on TBD. HISTORY: Gender: F; Age: 80 y/o ; Height: 162.56 cm; Weight: 88.968643 kg. CAD; Diabetes; Previous [place]; HTN; Arrhythmias; Quit smoking unknown years ago. Cardiac catheterization on 2014. COMPARISON: Previous nuclear testing completed [id number] [facility] at [facility]. ACCESSION NUMBER(S): [id number]; [id number]; [id number] ORDERING CLINICIAN: HERO BENITEZ TECHNIQUE: ONE DAY [...] Electronically signed by: MICHAEL BOURNE MD Normal [facility] ([place], [place]) Creatinineon 03-24-2018 Creatinine mass conc 0.97 mg/dL Normal 0.50-1.05 [facility] Comment on above: Performed By: #### 1 [id number] ####[facility] [id number] [place] [address] GFR/1.73 sq M.predicted MDRD vol rate/area 56 mL/min/{1.73_m2} Normal [facility] Comment on above: Result Comment: Inte rpretation for Chronic Kidney Disease:Stages 1&2 >60 Healthy or potential kidney damage.Mild decrease of GFR.Stage 3 30-59 Moderate decrease of GFR.Stage 4 15-29 Severe decrease of GFR.Stage 5 <15 Kidney failure or on dialysis. Performed By: #### 1 [id number] ####[facility] [address] [place] [address] Electrolyte Panelon 03-24-20 18 Anion gap 3 molar conc 14 mmol/L Normal 10-20 [facility] Comment on above: Performed By: #### 1 [id number] ####[facility] [address] [place] [address] Chloride molar conc 103 mmol/L Normal 98-107 [facility] Comment on above: Performed By: #### 1 [id number] ####[facility] [address] [place] [address] HCO3 molar conc (Bld) 29 mmol/L Normal 21-32 [facility] Comment on above: Performed By: #### 1 [id number] ####[facility] [address] [place] [address] Potassium molar conc 4.5 mmol/L Normal 3.5-5.1 [facility] Comment on above: Performed By: #### 1 [id number] ####[facility] [address] [place] [address] Sodium molar conc 141 mmol/L Normal 136-145 [facility] Comment on above: Performed By: #### 1 [id number] ####[facility] [address] [place] [address] Urea Nitrogenon 03-24-2018 Urea nitrogen mass conc 21 mg/dL Normal 6-23 [facility] Comment on above: Performed By: #### 1 [id number] ####[facility] [address] [place] [address] Vital Signs Date Time Vital Sign Value Performing Clinician Kate infante 05-14-2023 11: Body height 162.6 cm Hero Benitez MD Work Phone: [facility] 05-14-2023 11:050 Body mass index (BMI) [Ratio] 34.5 kg/m2 Hero Benitez MD Work Phone: [facility] 05-14-2023 11:050 Body weight 91.17 kg Hero Benitez MD Work Phone: [facility] 05-14-2023 11:11-0500 Diastolic blood pressure 82 mm[Hg] Hero Benitez MD Work Phone: [facility] 05-14-2023 11:11-0500 Heart rate 56 /min Hero Benitez MD Work Phone: [facility] 05-14-2023 11:11-0500 Systolic blood pressure 126 mm[Hg] Hero Benitez MD Work Phone: [facility] 05-15-2022 10:32-0500 Body height 162.56 cm Emre A Naderer Work Phone: [facility] 250 DO Work Phone: 05-15-2022 10:32-0500 Body mass index (BMI) [Ratio] 35.19 kg/m2 Emre A Naderer Work Phone: [facility] 250 DO Work Phone: 05-15-2022 10:32-0500 Body surface area Derived from formula 1.98 m2 Emre A Naderer Work Phone: [facility] 250 DO Work Phone: 05-15-2022 10:32-0500 Body weight 92.99 kg Emre A Naderer Work Phone: [facility] 250 DO Work Phone: 05-15-2022 10:32-0500 Diastolic blood pressure 70 mm[Hg] Emre A Naderer Work Phone: [facility] 250 DO Work Phone: 05-15-2022 10:32-0500 Heart rate 54 /min Emre A Naderer Work Phone: [facility] 250 DO Work Phone: 05-15-2022 10:32-0500 Systolic blood pressure 134 mm[Hg] Emre Naqvi Naderer Work Phone: [facility] 250 DO Work Phone: 05-09-2021 10:28-0500 Body height 162.56 cm Emre Naqvi Naderer Work Phone: [facility] 250 DO Work Phone: 05-09-2021 10:28-0500 Body mass index (BMI) [Ratio] 36.22 kg/m2 Emre Naqvi Naderer Work Phone: [facility] 250 DO Work Phone: 05-09-2021 10:28-0500 Body surface area Derived from formula 2 m2 Emre Donya Naderer Work Phone: [facility] 250 DO Work Phone: 05-09-2021 10:28-0500 Body weight 95.71 kg Emre Naqvi Naderer Work Phone: [facility] 250 DO Work Phone: 05-09-2021 10:28-0500 Diastolic blood pressure 70 mm[Hg] Emre Donya Naderer Work Phone: [facility] 250 DO Work Phone: 05-09-2021 10:28-0500 Heart rate 70 /min Emre Naqvi Naderer Work Phone: [facility] 250 DO Work Phone: 05-09-2021 10:28-0500 Systolic blood pressure 118 mm[Hg] Emre Donya Naderer Work Phone: [facility] 250 DO Work Phone: Encounters Encounter Date Encounter Type Care Provider Facility Start: 03-11-2024 End: 03-11-2024 ambulatory PREET B APLING Not Available Start: 03-06-2024 End: 03-06-2024 ambulatory EMRE GUILLEN Not Available Start: 02-10-2024 End: 02-10-2024 ambulatory EMRE GUILLEN Not Available Start: 12-17-2023 End: 12-17-2023 ambulatory LINDY MINA Not Available Start: 12-04-2023 End: 12-04-2023 ambulatory EMRE GUILLEN Not Available Start: 11-01-2023 End: 11-01-2023 ambulatory [facility] Start: 10-29-2023 End: 10-30-2023 ambulatory [facility] Start: 10-23-2023 End: 10-23-2023 ambulatory DARYL JAMAOLL Not Available Start: 10-18-2023 End: 10-30-2023 ambulatory [facility] Start: 09-04-2023 End: 09-04-2023 ambulatory EMRE GUILLEN Not Available Start: 09-02-2023 End: 09-02-2023 ambulatory PREET BRANNON Not Available Start: 07-26-2023 End: 07-26-2023 Emergency department patient visit EMRE [facility] Start: 06-17-2023 End: 06-17-2023 ambulatory EMRE GUILLEN Not Available Start: 05-14-2023 End: 05-14-2023 ambulatory HERO BENITEZ [facility] Ambulatory Start: 05-14-2023 End: 05-14-2023 Office outpatient visit 25 minutes Hero Benitez MD Work Phone: [facility] Comment on above: Coronary artery dise ase involving [place] coronary artery of [place] heart without angina pectoris (Primary Dx); Mixed hyperlipidemia; Primary hypertension; Status post angioplasty; Persistent atrial fibrillation (CMS/HCC); Hypertension, unspecified type Start: 05-15-2022 Office outpatient vi sit 25 minutes [facility]ill[facility] Start: 05-15-2022 Patient encounter [facility] Work Phone: Start: 05-15-[address] Emre Guillen Facility: Start: 05-01-2022 Rx Renewal Emre Alanr Work Phone: [facility] 250 DO Work Phone: Start: 01-12-2022 Telephone encounter Emre ashley Work Phone: [facility] 250 DO Work Phone: Start: 01-04-2022 Rx Renewal Emre Guillen Work Phone: [facility] 250 DO Work Phone: Start: 12-12-2021 End: 12-13-[address] EMRE GUILLEN Facility:[facility] Start: 05-09-2021 Office outpatient vi sit 25 minutes Emre Guillen Work Phone: [facility] 250 DO Work Phone: Start: 05-09-2021 Patient encounter procedure Emre Guillen Work Phone: [facility] 250 DO Work Phone: Start: 04-24-2021 End: 04-25-[address] EMRE GUILLEN Facility:[facility] Start: 04-01-2021 End: 04-01-2021 Evaluation and management of inpatient DR EMRE GUILLEN Facility:[facility] Start: 03-24-2018 Patient encounter JOSE MANUEL BEAUCHAMP Faccristian lity:[id number] Patient encounter status Emre Guillen Work Phone: [facility] 250 DO Work Phone: Procedures Date Procedure Procedure Detail Performing Clinician Start: 11-01-2023 Follow-up visit Follow-up HERNAN HOLMAN Start: 01-29-2018 Colonoscopy Emre ashley Work Phone: Angioplasty of blood vessel Emre Guillen Work Phone: Colonoscopy Emre Guillen Work Phone: Comment on above: 03/30/2021; Hernia repair Emre Guillen Work Phone: Hysterectomy Emre Guillne Work Phone: Operation on colon Emre morrison Work Phone: Percutaneous translu marialuisa coronary angioplasty Emre Guillen Work Phone: Plan of Treatment Date Care Activity Detail Author Start: 05-26-2024 End: 05-26-2024 Patient encounter procedure 05/26/2024 10:50 AM EST Office Visit [facility] [address] [address] Hero Benitez MD 703 [facility] 2, [address] [address] [facility] Start: 05-14-2023 FUV, Provider: Hero Benitez, Status: Pen, Time: 11:20 AM FUV, Provider: Hero Benitez, Status: Pen, Time: 11:20 AM [facility] 250 DO Work Phone: Start: 03-01-2023 Influenza vaccination Influenza Vaccine (#1) [facility] Start: 05-15-2022 FUV, Provider: Hero Benitez, Status: Pen, Time: 10:30 AM FUV, Provider: Hero Benitez, Status: Pen, Time: 10:30 [facility] Work Phone: Start: 02-24-2022 COVID-19 Vaccine (4 - Pfizer series) COVID-19 Vaccine (4 - Pfizer series) [facility] Start: 1991 Zoster Vaccines (1 of 2) Zoster Vaccines (1 of 2) [facility] Start: 1963 DTaP/Tdap/Td Vaccines (1 - Tdap) DTaP/Tdap/Td Vaccines (1 - Tdap) [facility] Start: 1960 Urine screening for protein Diabetes: Urine Protein Screening [facility] Start: 1951 Diabetic foot examination Diabetes: Foot Exam [facility] Start: 1951 Glaucoma screening Diabetes: Retinopathy Screening [facility] Start: 1941 Hemoglobin A1c measurement Diabetes: Hemoglobin A1C [facility] Start: 1941 Lipid panel Lipid Panel [facility] Start: 1941 Medicare Annual Wellness Visit Medicare Annual Wellness Visit (AWV) [facility] Start: 1941 Screening for osteoporosis Bone Density Scan [facility] Start: 1941 Thyroid stimulating hormone measurement TSH Level [facility] Immunizations Immunization Date Immunization Notes Care Provider Fa heriberto 06-17-2022 influenza virus vacc ine, unspecified formulation Hero Benitez MD Work Phone: [facility] Work Phone: 05-01-2021 Pfizer-BioNTech COVI D-19 Vacc 30 MCG/0.3ML Intramuscular Suspension Emre Guillen Work Phone: [facility] Comment on above: Series: 04-14-2021 influenza, high dose seasonal, preservative-free Emre Guillen Work Phone: [facility] 690 DO Work Phone: Comment on above: Series: 08-25-2020 Pfizer-BioNTech COVI D-19 Vacc 30 MCG/0.3ML Intramuscular Suspension Emre Guillen Work Phone: [facility] Comment on above: Series: 07-28-2020 Pfizer-BioNTech COVI D-19 Vacc 30 MCG/0.3ML Intramuscular Suspension Emre Guillen Work Phone: [facility] Comment on above: Series: 03-31-2020 pneumococcal polysaccharide vaccine, 23 valent Emre Guillen Work Phone: [facility] 789 DO Work Phone: Comment on above: Series: 11-28-2018 pneumococcal conjuga te vaccine, 13 valent Emer Guillen Work Phone: [facility] 250 DO Work Phone: Comment on above: Series: 04-01-2018 pneumococcal conjuga te vaccine, 13 hoa Benitez MD Work Phone: [facility] Payers Date Payer Category Payer Medicare MEDICARE MEDICAR E RAILROAD [id number] 2006-Present [address] [place] [address] [id number] 1959 Medicare [id number] 1959 Unknown [id number] 1941 Unknown [id number] 2.16.840.1.909169.3.579.2.593 1941 Unknown [id number] 2.16.840.1.129068.3.579.2.593 1941 Unknown [id number] 2.16.840.1.132144.3.579.2.593 1941 Unknown [id number] 2.16.840.1.437066.3.579.2.356 1941 Unknown [id number] 2.16.840.1.961060.3.579.2.1244 1941 Unknown [id number] 2.16.840.1.042096.3.579.2.1286 1941 Unknown [id number] 2.16.840.1.890571.3.579.2.1286 1941 Unknown [id number] 2.16.840.1.446994.3.579.2.1286 1941 Unknown [id number] 2.16.840.1.498604.3.579.2.1286 1941 Unknown [id number] 2.16.840.1.675251.3.579.2.1259 1941 Unknown [id number] 2.16.840.1.782467.3.579.2.1259 1941 Unknown [id number] 2.16.840.1.744496.3.579.2.9 1941 Unknown [id number] 2.16.840.1.889526.3.579.2.1259 1941 Unknown [id number] 2.16.840.1.694889.3.579.2.1259 1941 Unknown [id number] 2.16.840.1.759704.3.579.2.9 1941 Unknown [id number] 2.16.840.1.374395.3.579.2.9 1941 Unknown [id number] 2.16.840.1.840006.3.579.2.1258 1941 Unknown [id number] 2.16.840.1.680971.3.579.2.1259 1941 Unknown [id number] 2.16.840.1.837582.3.579.2.1259 Medicare [id number] Unknown Social History Date Type Detail Facility Start: 05-10-2023 No alcohol use No alcohol use [facility] 250 DO Work Phone: Comment on above: 3-4 cups daily; 2 cups coffee daily; Quit 2007; Start: 05-10-2023 Tobacco smoking stat us TXIS Ex-smoker [facility] Work Phone: History of tobacco use [facility] Work Phone: History of tobacco use [facility]: Start: 05-10-2023 Tobacco use and exposure Smokeless tobacco non-user [facility] Work Phone: Start: 05-14-2023 Alcohol intake Lifetime non-d davin (finding) [facility] Work Phone: Start: 05-10-2023 Tobacco use panel [facility] Work Phone: Start: 1940 Sex Assigned At Not on file U [facility] Work Phone: Start: 05-04-2023 End: 05-14-2023 Exposure to SARS-CoV-2 (event) Not sure [facility] History of Present illness Narrative 05-14-2023 Hero [...] Rfl: Assessment/Plan 1. Coronary artery disease involving [place] coronary artery of [place] heart without angina pectoris No recurrence of symptomatology that preceded her PTCA. I presume her CAD to be stable 2. Mixed hyperlipidemia Adequately controlled on current therapy 3. Primary hypertension Adequately controlled on current therapy 4. Status post angioplasty With resolution of anginal symptoms 5. Persistent atrial fibrillation (CMS/HCC) Well-tolerated. Rate is controlled and stroke risk is mitigated. documented in this encounter [facility] Work Phone: Instructions 05-14-2023 Patient Instructions Note [...] of your visit. documented in this encounter [facility] Work Phone: Evaluation note Note Date & Type Note Facility Evaluation note Diagnosis Coronary artery disease involving [place] coronary artery of [place] heart without angina pectoris- Primary Mixed hyperlipidemia Primary hypertension Unspecified essential hypertension Status post angioplasty Postsurgical percutaneous transluminal coronary angioplasty status Persistent atrial fibrillation ([facility]) Atrial fibrillation Hypertension, unspecified type documented in this encounter [facility] Work Phone: History of Present illness Narrative [...] the course of the next several weeks. [facility] [employer] Work Phone: History of Present illness Narrative [...] to improve blood pressure and diabetes control. [facility] 250 DO Work Phone: Reason for referral (narrative) Consultation (Routine) - Authorized Note Date & Type Note Facility Reason for referral (narrati ve) Specialty Diagnoses / Procedures Referred By Contac t Referred To Contact Cardiology Diagnoses Primary hypertension Procedures Follow Up In Cardiology Hero Benitez MD [address] [place] [address], [address] [address] Hero Benitez MD [address] [facility] 2, [place] [address] [place] [id number] Referral ID Status Reason Start Date Expiration Date V isits Requested Visits Authorized [id number] Authorized 05/14/2023 05/13/2024 1 1 [facility] Work Phone: Summary Purpose Family History No [...] being seen for an annual follow-up of.MARISSA STILTNER is being seen for an annual follow-up of.MARISSA STILTNER is being seen for an annual follow-up of. MARISSA STILTNER is being seen for an annual follow-up of.MARISSA STILTNER is being seen for an annual follow-up of.MARISSA STILTNER is being seen for an annual follow-up of. Additional Source Comments INFORMATION SOURCE (unrecogn ized section and content) DATE CREATED AUTHOR 04/23/2018 [facility] DATE CREATED AUTHOR AUTHOR'S ORGANIZ ATION 08/22/2020 [facility] DATE CREATED AUTHOR AUTHOR'S ORGANIZ ATION 12/14/2021 [facility] DATE CREATED AUTHOR AUTHOR'S ORGANIZ ATION 05/16/2022 [facility] DATE CREATED AUTHOR AUTHOR'S ORGANIZ ATION 05/17/2022 [employer] DATE CREATED AUTHOR AUTHOR'S ORGANIZ ATION 05/16/2023 [facility] DATE CREATED AUTHOR AUTHOR'S ORGANIZ ATION 11/02/2023 [facility] DATE CREATED AUTHOR AUTHOR'S ORGANIZ ATION 03/13/2024 [facility] [employer] Care Teams (unrecognized sec tion and content) Budget Clerk Relationship Specialty Start Date End Date Emre Guillen MD [address] [place] [address] PCP - General 08/18/20 FOR RECORDS PERTAINING [...] BE BASED ON THE PRIMARY CLINICAL RECORDS. [employer] [facility]. provides no warranty or guarantee of the accuracy or completeness of information in this document.
[2024-03-24 21:53] LABS: Hematocrit 30.1 % (36.0-48.0); Hemoglobin 9.6 g/dL (12.0-16.0)
[2024-03-24] MEDS: IPRATROPIUM/ALBUTEROL SULFATE 3 ML AMPUL.NEB IH (22:01)
[2024-03-24 22:02] LABS: Glucometer 285 mg/dL (74-106)
[2024-03-24] MEDS: INSULIN ASPART 300 UNIT/3 ML PEN SUBQ (22:02)
[2024-03-24 23:40] LABS: Bilirubin Urine NEGATIVE (NEGATIVE); Blood Urine NEGATIVE (NEGATIVE); Clarity Urine CLEAR (CLEAR); Color Urine LT. YELLOW (YELLOW); Glucose Urine UA 100 mg/dL (NEGATIVE); Ketones Urine NEGATIVE (NEGATIVE); Leukocyte Esterase Urine TRACE (NEGATIVE); Nitrite Urine NEGATIVE (NEGATIVE); Protein Urine NEGATIVE (NEG/TRACE); Urobilinogen Urine 0.2 EU/dL (0.2-1.0); pH Urine 5.5 (5.0-9.0)
[2024-03-24 23:52] LABS: Bacteria Urine TRACE #/HPF (NONE SEEN); Cast Seen? SEEN #/LPF (NONE SEEN); Crystals Seen? None Seen #/HPF (None Seen); Hyaline Casts Urine RARE; Mucus Urine NONE SEEN (NONE SEEN); RBC Urine 0-2 #/HPF (0-2); Squamous Epithelial Cell Urine FEW #/LPF (NONE/RARE)
[2024-03-24 23:53] LABS: Urine Culture Indicated YES
[2024-03-25] VITALS (73 sets, daily range): BP systolic 73–153; BP diastolic 36–130; PULSE 77–98; TEMP 36.3–36.6; O2SAT 86–100
[2024-03-25] MEDS: IPRATROPIUM/ALBUTEROL SULFATE 3 ML AMPUL.NEB IH (04:05)
[2024-03-25] MEDS: 0.9 % SODIUM CHLORIDE 1,000 ML 250 ML IV (04:18)
[2024-03-25 06:44] LABS: Basophils Absolute Auto 0.1 10^3/uL (0.0-0.1); Basophils Percent Auto 0.7 % (0.2-2.0); Eosinophils Absolute Auto 0.2 10^3/uL (0.0-0.7); Eosinophils Percent Auto 1.3 % (0.9-7.0); Hematocrit 24.7 % (36.0-48.0); Hemoglobin 8.1 g/dL (12.0-16.0); Immature Granulocytes Abs Auto 0.25 10^3/uL (0.00-0.03); Immature Granulocytes Pct Auto 2.2 % (0.0-0.5); Lymphocytes Absolute Auto 1.4 10^3/uL (1.2-3.8); Lymphocytes Percent Auto 12.4 % (20.5-60.0); Mean Corpuscular HGB Conc 32.8 g/dL (29.9-35.2); Mean Corpuscular Hemoglobin 28.1 pg (26.7-34.0); Mean Corpuscular Volume 85.8 fL (81.0-99.0); Mean Platelet Volume 12.7 fL (9.5-13.5); Monocytes Absolute Auto 0.7 10^3/uL (0.3-0.8); Monocytes Percent Auto 5.8 % (1.7-12.0); Neutrophils Percent Auto 77.6 % (43.0-75.0); Platelet Count 198 10^3/uL (150-450); Red Blood Count 2.88 10^6/uL (4.20-5.40); Red Cell Distribution Width 17.9 % (11.0-15.0); White Blood Count 11.6 10^3/uL (4.0-11.0)
[2024-03-25 07:00] LABS: Alanine Aminotransferase 10 U/L (14-59); Albumin Globulin Ratio 0.7; Alkaline Phosphatase 18 U/L (46-116); Anion Gap 13.7; Aspartate Amino Transferase 31 U/L (15-37); BUN Creatinine Ratio 39.8; Bilirubin Total 0.5 mg/dL (0.2-1.0); Calcium 9.3 mg/dL (8.5-10.1); Carbon Dioxide 24.8 mmol/L (21.0-32.0); Chloride 114 mmol/L (98-107); Estimated GFR (African America 14 (>=60); Estimated GFR (Non-African Ame 12 (>=60); Globulin 2.8 g/dL; Glucose 182 mg/dL (74-106); Potassium 4.5 mmol/L (3.5-5.1); Sodium 148 mmol/L (136-145); Total Protein 4.8 g/dL (6.4-8.2)
[2024-03-25] MEDS: PANTOPRAZOLE SODIUM 40 MG VIAL IV ×2 (07:58→18:19)
[2024-03-25 08:05] LABS: Glucometer 170 mg/dL (74-106)
[2024-03-25 08:08] LABS: A. calcoaceticus-baumannii Cpx NOT DETECTED (NOT DETECTE); Bacteroides fragilis NOT DETECTED (NOT DETECTE); Candida albicans NOT DETECTED (NOT DETECTE); Candida auris NOT DETECTED (NOT DETECTE); Candida glabrata NOT DETECTED (NOT DETECTE); Candida krusei NOT DETECTED (NOT DETECTE); Candida parapsilosis NOT DETECTED (NOT DETECTE); Candida tropicalis NOT DETECTED (NOT DETECTE); Cryptococcus neoformans/gattii NOT DETECTED (NOT DETECTE); Enterobacter cloacae complex NOT DETECTED (NOT DETECTE); Enterobacterales NOT DETECTED (NOT DETECTE); Enterococcus faecalis NOT DETECTED (NOT DETECTE); Enterococcus faecium NOT DETECTED (NOT DETECTE); Haemophilus influenzae NOT DETECTED (NOT DETECTE); Klebsiella aerogenes NOT DETECTED (NOT DETECTE); Klebsiella pneumoniae group NOT DETECTED (NOT DETECTE); Listeria monocytogenes NOT DETECTED (NOT DETECTE); Neisseria meningitidis NOT DETECTED (NOT DETECTE); Proteus spp. NOT DETECTED (NOT DETECTE); Pseudomonas aeruginosa NOT DETECTED (NOT DETECTE); Salmonella spp. NOT DETECTED (NOT DETECTE); Serratia marcescens NOT DETECTED (NOT DETECTE); Staphylococcus lugdunensis NOT DETECTED (NOT DETECTE); Stenotrophomonas maltophilia NOT DETECTED (NOT DETECTE); Streptococcus agalactiae NOT DETECTED (NOT DETECTE); Streptococcus pneumoniae NOT DETECTED (NOT DETECTE); Streptococcus pyogenes NOT DETECTED (NOT DETECTE); Streptococcus spp. NOT DETECTED (NOT DETECTE)
--- NOTE | 2024-03-25 09:27 | CM.NOTE ---
Rounds made with Dr. Patel. Dr. Patel discusses plan of care with family and has arranged to meet with all the family at 0900.
[2024-03-25] MEDS: CEFTRIAXONE 1,000 MG in 0.9 % SODIUM CHLORIDE 50 ML 100 MG IV (09:35)
[2024-03-25] MEDS: SODIUM CHLORIDE 0.45 % 1,000 ML 100 ML IV ×2 (09:35→19:36)
[2024-03-25] MEDS: FLUOXETINE HCL 20 MG CAPSULE PO (09:51)
[2024-03-25] MEDS: CARBIDOPA/LEVODOPA 25 MG-100 MG TABLET 2 TAB PO ×2 (09:51→20:38)
[2024-03-25] MEDS: CETIRIZINE HCL 10 MG TABLET PO (09:51)
[2024-03-25] MEDS: PREGABALIN 75 MG CAPSULE PO ×2 (09:51→20:38)
[2024-03-25 10:05] LABS: Source BLOOD
[2024-03-25 10:13] LABS: Staphylococcus epidermidis DETECTED (NOT DETECTE); Staphylococcus spp. DETECTED (NOT DETECTE); mecA/C DETECTED (NOT DETECTE)
--- NOTE | 2024-03-25 10:25 | SWNOTE1 ---
RAMILA spoke to Dr. Patel and family is going to move forward with hospice, plan on getting home ready for her, likely discharge tomorrow. Pt's son, Karthik, is the point of contact. SW was able to speak with pt's son Karthik. Family has decided to sign pt on to hospice and respect her wishes of her going home. Pt's is at home as well. Family is involved for good support in the home. Karthik voiced that they have a hospital bed from a family member and may have home oxygen as well. He is going to check with family. SW did provide pt with a list of hospice agencies, he thinks they will use [facility], but wants to check with family. Karthik has to take his to cancer treatment in [place] and then he will be back. RAMILA updated nursing. RAMILA advised Karthik to let nursing know when he returns and SW can move forward with sending hospice referral.
--- NOTE | 2024-03-25 10:53 | PM.IMPN1 ---
Progress Note: A&P Assessment and Plan (1) Metabolic encephalopathy: Assessment and Plan: Lethargic/confused and drowsy. Awakes to stimulus and intermittently responds to questions. CTH - normal. Metabolic encephalopathy likely due to UTI/hypoxia According to family she has been like this for past 2 weeks. (2) Acute respiratory failure with hypoxia: Assessment and Plan: On 3 L O2 via NC. appears comfortable from resp pov. Has coarse breath sounds and cough. Could be bronchitis or still PNA (not visible on CXR due to body habitus) On duonebs as needed. Now enrolled in hospice, d/c IV abx. (3) Hypovolemic shock: Assessment and Plan: BP is now better after initial resuscitation. Hb stable. C/w gentle IV hydration. (4) Anemia due to acute blood loss: Assessment and Plan: Likely due to UGIB from elevated INR. Hb stable. No more blood products as patient is now enrolled in hospice. (5) Upper GI bleed: Assessment and Plan: On Protonix. C/w same for now. Hb stable. No more blood products as patient is now enrolled in hospice. (6) LUCIANA (acute kidney injury): Assessment and Plan: Good UO, but worsening cr. Normal cr at baseline. Monitor UO. (7) Supratherapeutic INR: Assessment and Plan: Received Vit K. Hold coumadin (8) Generalized weakness: Assessment and Plan: PT/OT eval. (9) Fracture of humerus: Assessment and Plan: Non surgical. Pain control. Qualifiers: Encounter type: subsequent encounter Fracture alignment: displaced Fracture healing: with nonunion Fracture morphology: 2-part Fracture type: closed Humerus Location: surgical neck Laterality: left Qualified Code(s): S42.222K - 2-part displaced fracture of surgical neck of left humerus, subsequent encounter for fracture with nonunion (10) COPD (chronic obstructive pulmonary disease): Assessment and Plan: On duonebs as needed. No steroids to avoid increased risk of bleeding. Qualifiers: COPD type: chronic bronchitis Chronic bronchitis type: simple Qualified Code(s): J41.0 - Simple chronic bronchitis (11) Alzheimer's dementia: Assessment and Plan: Progressive decline in mental and physical health. Bedbound for 2 weeks with lethargy/confusion/drowsy. Hospice consulted. Qualifiers: Alzheimer's disease onset: late onset Dementia severity: severe Dementia behavioral or psychological symptom: with mood disturbance Qualified Code(s): G30.1 - Alzheimer's disease with late onset; F02.C3 - Dementia in other diseases classified elsewhere, severe, with mood disturbance (12) Parkinson disease: Assessment and Plan: Progressive decline in mental and physical health. Bedbound for 2 weeks with lethargy/confusion/drowsy. Hospice consulted. Qualifiers: Dyskinesia presence: with dyskinesia Fluctuating manifestations: without fluctuating manifestations Qualified Code(s): G20.B1 - Parkinson's disease with dyskinesia, without mention of fluctuations (13) H/O malignant neoplasm of colon: Assessment and Plan: s/p colectomy in 2018. (14) Permanent atrial fibrillation: Assessment and Plan: HR controlled. Hold coumadin. (15) Type 2 diabetes mellitus: Assessment and Plan: D/c sliding scale insulin. Qualifiers: Diabetes mellitus halfway insulin use: without halfway use Diabetes mellitus complication status: without complication Qualified Code(s): E11.9 - Type 2 diabetes mellitus without complications (16) HTN (hypertension): Assessment and Plan: Hold BP meds. Qualifiers: Hypertension type: primary hypertension Qualified Code(s): I10 - Essential (primary) hypertension (17) Troponin I above reference range: Assessment and Plan: likely t2 demand ischemia from severe anemia. No intervention. Patient now enrolled in hospice. Internal Medicine - PN: Subj Subjective Interval history: Seen and examined. Drowsy but easily arousable. Lethargic, drowsy. Speech is very difficult to comprehend. No sig overnight events. Exam Constitutional Vital Signs, click to edit/add: Last Vital Signs Temp 97.6 F 03/25/24 07:00 Pulse 91 H 03/25/24 09:15 Resp 21 H 03/25/24 08:45 BP 92/52 03/25/24 09:15 Pulse Ox 99 03/25/24 09:15 O2 Del Method Nasal Cannula 03/25/24 07:00 O2 Flow Rate 2 03/25/24 07:00 FiO2 55 03/24/24 21:58 Documenting provider has reviewed patient's vital signs: yes General appearance: cooperative, lethargic and ill appearing Nutritional appearance: obese Respiratory Effort & inspection: able to speak in complete sentences and decreased respiratory effort Auscultation: rhonchi and diminished lung sounds Other: coarse breath sounds. Cardio Common normals: regular rate, S1 normal heart sound and S2 normal heart sound Rhythm: abnormal rhythm Extremity Common normals: normal to inspection and full ROM Neuro Common normals: moves all extremities Sensorium/orientation: lethargic and somnolent Speech: abnormal speech Gait (neuro): unable to assess gait Psych Attitude: calm Speech: incoherent Thought process: confused Internal Medicine - PN: Obj Da Labs Labs: Laboratory Results - last 24 hr 03/24/24 03/24/24 03/24/24 13:50 14:00 14:30 WBC 13.3 H RBC 1.88 L Hgb 5.4 L* Hct 16.7 L* MCV 88.8 MCH 28.7 MCHC 32.3 RDW 17.2 H Plt Count 227 MPV 13.0 Neut % (Auto) 81.4 H Lymph % (Auto) 10.6 L [place] % (Auto) 4.9 Eos % (Auto) 1.1 Baso % (Auto) 0.4 Neut # (Auto) 10.8 H Lymph # (Auto) 1.4 [place] # (Auto) 0.7 Eos # (Auto) 0.1 Baso # (Auto) 0.1 Abs Immat Gran (auto) 0.21 H Imm/Tot Granulo (auto) 1.6 H PT 49.0 H* INR 5.47 H* Puncture Site Rr ABG pH 7.442 ABG pCO2 36.9 ABG pO2 196.0 H ABG HCO3 25.1 ABG O2 Saturation >100.0 ABG Base Excess 1.0 Deon Test Positive VBG pH 7.504 H VBG pCO2 29.1 L O2 Liters/Min 12 FiO2 50 Sodium 145 Potassium 4.4 Chloride 112 H Carbon Dioxide 23.9 Anion Gap 13.5 BUN 138.0 H* Creatinine 3.51 H Est GFR ( Amer) 15 L Est GFR (Non-Af Amer) 12 L BUN/Creatinine Ratio 39.3 Glucose 244 H Lactate 1.1 Calcium 8.8 Total Bilirubin 0.4 AST 17 ALT 7 L Alkaline Phosphatase 15 L Ammonia 21 Troponin I High Sens 60.1 H* NT-Pro-B Natriuret Pep 3862.0 H* Total Protein 4.7 L Albumin 1.8 L Globulin 2.9 Albumin/Globulin Ratio 0.6 Urine Color Urine Clarity Urine pH Ur Specific [place] Urine Protein Urine Glucose (UA) Urine Ketones Urine Occult Blood Urine Nitrite Urine Bilirubin Urine Urobilinogen Ur Leukocyte Esterase Urine RBC Urine WBC Ur Squamous Epith Cells Urine Crystals Urine Bacteria Urine Casts Hyaline Casts Urine Mucus Ur Culture Indicated? Specimen Source Blood A.calcoaceticus-baumannii cmplx PCR Not detected Bacteroides fragilis Not detected Anel albicans (PCR) Not detected Anel auris (PCR) Not detected C. glabrata (PCR) Not detected C. krusei (PCR) Not detected C. parapsilosis (PCR) Not detected C. tropicalis (PCR) Not detected C. neoform/gattii (PCR) Not detected Enterobacterales (PCR) Not detected E. cloacae complex PCR Not detected Enterococc faecalis PCR Not detected Enterococc faecium PCR Not detected E. coli (PCR) Not detected H. influenzae (PCR) Not detected Klebsiella aerogenes (PCR) Not detected Klebsiella oxytoca PCR Not detected K. pneumoniae group (PCR) Not detected List. monocytogenes PCR Not detected N. meningitidis (PCR) Not detected Proteus spp. (copies/mL) Not detected Salmonella spp. (PCR) Not detected Serratia marcescens PCR Not detected Staphylococcus sp PCR Detected A* Staph aureus (PCR) Not detected mecA/C & MREJ Resist Gene Not applicable mecA/C-Methicil Resis Gene Detected A* mcr-1 Colistin Res Gene PCR Not applicable Staph epidermidis (PCR) Detected A* Staph lugdunensis (TEM-PCR) Not detected S. maltophilia (PCR) Not detected Streptococcus sp PCR Not detected Strep agalactiae (PCR) Not detected Strep pneumoniae (PCR) Not detected S. pyogenes (PCR) Not detected P. aeruginosa (PCR) Not detected Carl/B-Vanco Res Genes Not applicable blaIMP Car res Gene PCR Not applicable KPC (blaKPC) Detect PCR Not applicable NDM (blaNDM) Detect PCR Not applicable OXA-48 Carbapenem Resis Gene (PCR) Not applicable blaVIM Car Res Gene PCR Not applicable CTX-M ESBL (PCR) Not applicable POC Glucose Blood Type O Positive Antibody Screen Negative Crossmatch See Detail 03/24/24 03/24/24 03/24/24 21:08 21:55 22:25 WBC RBC Hgb 9.6 L Hct 30.1 L MCV MCH MCHC RDW Plt Count MPV Neut % (Auto) Lymph % (Auto) [place] % (Auto) Eos % (Auto) Baso % (Auto) Neut # (Auto) Lymph # (Auto) [place] # (Auto) Eos # (Auto) Baso # (Auto) Abs Immat Gran (auto) Imm/Tot Granulo (auto) PT INR Puncture Site ABG pH ABG pCO2 ABG pO2 ABG HCO3 ABG O2 Saturation ABG Base Excess Deon Test VBG pH VBG pCO2 O2 Liters/Min FiO2 Sodium Potassium Chloride Carbon Dioxide Anion Gap BUN Creatinine Est GFR ( Amer) Est GFR (Non-Af Amer) BUN/Creatinine Ratio Glucose Lactate Calcium Total Bilirubin AST ALT Alkaline Phosphatase Ammonia Troponin I High Sens NT-Pro-B Natriuret Pep Total Protein Albumin Globulin Albumin/Globulin Ratio Urine Color Lt. yellow Urine Clarity Clear Urine pH 5.5 Ur Specific [place] 1.010 Urine Protein Negative Urine Glucose (UA) 100 A Urine Ketones Negative Urine Occult Blood Negative Urine Nitrite Negative Urine Bilirubin Negative Urine Urobilinogen 0.2 Ur Leukocyte Esterase Trace A Urine RBC 0-2 Urine WBC 5-10 A Ur Squamous Epith Cells Few A Urine Crystals None seen Urine Bacteria Trace A Urine Casts Seen A Hyaline Casts Rare Urine Mucus None seen Ur Culture Indicated? Yes Specimen Source A.calcoaceticus-baumannii cmplx PCR Bacteroides fragilis Anel albicans (PCR) Anel auris (PCR) C. glabrata (PCR) C. krusei (PCR) C. parapsilosis (PCR) C. tropicalis (PCR) C. neoform/gattii (PCR) Enterobacterales (PCR) E. cloacae complex PCR Enterococc faecalis PCR Enterococc faecium PCR E. coli (PCR) H. influenzae (PCR) Klebsiella aerogenes (PCR) Klebsiella oxytoca PCR K. pneumoniae group (PCR) List. monocytogenes PCR N. meningitidis (PCR) Proteus spp. (copies/mL) Salmonella spp. (PCR) Serratia marcescens PCR Staphylococcus sp PCR Staph aureus (PCR) mecA/C & MREJ Resist Gene mecA/C-Methicil Resis Gene mcr-1 Colistin Res Gene PCR Staph epidermidis (PCR) Staph lugdunensis (TEM-PCR) S. maltophilia (PCR) Streptococcus sp PCR Strep agalactiae (PCR) Strep pneumoniae (PCR) S. pyogenes (PCR) P. aeruginosa (PCR) Carl/B-Vanco Res Genes blaIMP Car res Gene PCR KPC (blaKPC) Detect PCR NDM (blaNDM) Detect PCR OXA-48 Carbapenem Resis Gene (PCR) blaVIM Car Res Gene PCR CTX-M ESBL (PCR) POC Glucose 285 H Blood Type Antibody Screen Crossmatch 03/25/24 03/25/24 06:35 08:04 WBC 11.6 H RBC 2.88 L Hgb 8.1 L Hct 24.7 L MCV 85.8 MCH 28.1 MCHC 32.8 RDW 17.9 H Plt Count 198 MPV 12.7 Neut % (Auto) 77.6 H Lymph % (Auto) 12.4 L [place] % (Auto) 5.8 Eos % (Auto) 1.3 Baso % (Auto) 0.7 Neut # (Auto) 9.0 H Lymph # (Auto) 1.4 [place] # (Auto) 0.7 Eos # (Auto) 0.2 Baso # (Auto) 0.1 Abs Immat Gran (auto) 0.25 H Imm/Tot Granulo (auto) 2.2 H PT INR Puncture Site ABG pH ABG pCO2 ABG pO2 ABG HCO3 ABG O2 Saturation ABG Base Excess Deon Test VBG pH VBG pCO2 O2 Liters/Min FiO2 Sodium 148 H Potassium 4.5 Chloride 114 H Carbon Dioxide 24.8 Anion Gap 13.7 BUN 146.0 H* Creatinine 3.67 H Est GFR ( Amer) 14 L Est GFR (Non-Af Amer) 12 L BUN/Creatinine Ratio 39.8 Glucose 182 H Lactate Calcium 9.3 Total Bilirubin 0.5 AST 31 ALT 10 L Alkaline Phosphatase 18 L Ammonia Troponin I High Sens NT-Pro-B Natriuret Pep Total Protein 4.8 L Albumin 2.0 L Globulin 2.8 Albumin/Globulin Ratio 0.7 Urine Color Urine Clarity Urine pH Ur Specific [place] Urine Protein Urine Glucose (UA) Urine Ketones Urine Occult Blood Urine Nitrite Urine Bilirubin Urine Urobilinogen Ur Leukocyte Esterase Urine RBC Urine WBC Ur Squamous Epith Cells Urine Crystals Urine Bacteria Urine Casts Hyaline Casts Urine Mucus Ur Culture Indicated? Specimen Source A.calcoaceticus-baumannii cmplx PCR Bacteroides fragilis Anel albicans (PCR) Anel auris (PCR) C. glabrata (PCR) C. krusei (PCR) C. parapsilosis (PCR) C. tropicalis (PCR) C. neoform/gattii (PCR) Enterobacterales (PCR) E. cloacae complex PCR Enterococc faecalis PCR Enterococc faecium PCR E. coli (PCR) H. influenzae (PCR) Klebsiella aerogenes (PCR) Klebsiella oxytoca PCR K. pneumoniae group (PCR) List. monocytogenes PCR N. meningitidis (PCR) Proteus spp. (copies/mL) Salmonella spp. (PCR) Serratia marcescens PCR Staphylococcus sp PCR Staph aureus (PCR) mecA/C & MREJ Resist Gene mecA/C-Methicil Resis Gene mcr-1 Colistin Res Gene PCR Staph epidermidis (PCR) Staph lugdunensis (TEM-PCR) S. maltophilia (PCR) Streptococcus sp PCR Strep agalactiae (PCR) Strep pneumoniae (PCR) S. pyogenes (PCR) P. aeruginosa (PCR) Carl/B-Vanco Res Genes blaIMP Car res Gene PCR KPC (blaKPC) Detect PCR NDM (blaNDM) Detect PCR OXA-48 Carbapenem Resis Gene (PCR) blaVIM Car Res Gene PCR CTX-M ESBL (PCR) POC Glucose 170 H Blood Type Antibody Screen Crossmatch Urinary Catheter Management Urinary Catheter Management 2-way Urethral: Cath placed during this visit: yes Urethral indwelling: Yes Reason for continuing: end of life care Insertion date: 03/25/24 Insertion time: 22:15
--- NOTE | 2024-03-25 11:03 | PM.CSD1 ---
Advance Care Planning Advance Care Planning Discussion Advance care planning discussion summary: Family meeting with patients spouse, daughter, her 2 sons and one daughter in law. Son Karthik also has POA. Daughter in law is her primary caregiver. Family provided updated information on patient's clinical progression, medical hx. Discussed goals of care, end of life, palliative care, hospice care. Inquired patient's previous wishes about her goals of care, artificial nutrition. Answered all questions and cleared any misconceptions/confusions family had Whole meeting took place in a chapel, for over 20 minutes. Time spent is separate from what was spent on her evaluation, medical care, co ordination of care and clinical care. Does patient have a terminal or chronic,progressive disease such that prognosis is less than 6 months: Yes Advance care planning discussion participants: patient surrogate decision maker and other family member
[2024-03-25 13:24] LABS: Glucometer 247 mg/dL (74-106)
[2024-03-25] MEDS: INSULIN ASPART 300 UNIT/3 ML PEN SUBQ ×3 (13:27→20:39)
--- NOTE | 2024-03-25 13:49 | SWNOTE1 ---
Pt's son, Karthik, has returned and family has decided they would like [facility]. He is alright with RAMILA sending referral to [facility]. RAMILA advised that Vj will call and coordinate a time to meet with family likely for tomorrow morning. Karthik voiced understanding. Referral sent to [facility]. Referral included face sheet, ED note, H&P, provider notes, case management report, wound consult, nursing notes, diagnostic imaging, med list, DNR order, and Hospice order.
--- NOTE | 2024-03-25 14:36 | SWNOTE1 ---
SW reviewed Important Message from Medicare form with pt and pt's in room. Pt's would like SW to review with there son, Karthik. SW went downstairs in atrium to find Karthik, but he as gone. SW to review with Karthik tomorrow.
--- NOTE | 2024-03-25 15:02 | SWNOTE1 ---
RAMILA called [facility] to verify they received fax. Vj intake did confirm they have the referral and are reviewing now, will call RAMILA back once time is confirmed with family.
[2024-03-25 17:34] LABS: Glucometer 247 mg/dL (74-106)
[2024-03-25 20:36] LABS: Glucometer 229 mg/dL (74-106)
--- NOTE | 2024-03-25 20:49 | W.PM.WC ---
Wound Consult Note Assessment and Plan (1) Metabolic encephalopathy: (2) Acute respiratory failure with hypoxia: (3) Hypovolemic shock: (4) Anemia due to acute blood loss: (5) Upper GI bleed: (6) LUCIANA (acute kidney injury): (7) Supratherapeutic INR: (8) Generalized weakness: (9) Fracture of humerus: Qualifiers: Encounter type: subsequent encounter Fracture alignment: displaced Fracture healing: with nonunion Fracture morphology: 2-part Fracture type: closed Humerus Location: surgical neck Laterality: left Qualified Code(s): S42.222K - 2-part displaced fracture of surgical neck of left humerus, subsequent encounter for fracture with nonunion (10) COPD (chronic obstructive pulmonary disease): Qualifiers: COPD type: chronic bronchitis Chronic bronchitis type: simple Qualified Code(s): J41.0 - Simple chronic bronchitis (11) Alzheimer's dementia: Qualifiers: Alzheimer's disease onset: late onset Dementia severity: severe Dementia behavioral or psychological symptom: with mood disturbance Qualified Code(s): G30.1 - Alzheimer's disease with late onset; F02.C3 - Dementia in other diseases classified elsewhere, severe, with mood disturbance (12) Parkinson disease: Qualifiers: Dyskinesia presence: with dyskinesia Fluctuating manifestations: without fluctuating manifestations Qualified Code(s): G20.B1 - Parkinson's disease with dyskinesia, without mention of fluctuations (13) H/O malignant neoplasm of colon: (14) Permanent atrial fibrillation: (15) Type 2 diabetes mellitus: Qualifiers: Diabetes mellitus group home insulin use: without regional intermodal truck 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 Patient resting in bed with family at bedside. Heels intact, boggy, dry. Bruising to left upper arm and left face due to fall prior to admission. Open areas on bilateral buttocks with irregular edges that suggest friction/shear as well as pressure component. Patient reports that left buttock is more sore than right. Repositioned patient with pillows for comfort. Currently using triad with ABD covering. Left buttock ulceration measures approximately: 5.5cmx3.5cmx0.1. Beefy red base with purple discoloration to periwound due to pressure. Right buttock ulceration measures approximately: [id number]. Beefy red base with purple discoloration to periwound due to pressure. Recommendations: Triad wound paste to open ulcerations. Cover with ABD pad if needed and change due to drainage daily. Reposition frequently Waffle air mattress overlay Air seat cushion Float heels of bed Photos in chart. Orders in chart. Please call [phone] for any questions or concerns. Alfredito Moreno RN, CWON
[2024-03-26] VITALS (40 sets, daily range): BP systolic 95–113; BP diastolic 52–63; PULSE 78–100; TEMP 36.5; O2SAT 94–100
[2024-03-26] MEDS: SODIUM CHLORIDE 0.45 % 1,000 ML 100 ML IV (05:35)
[2024-03-26] MEDS: LEVOTHYROXINE SODIUM 125 MCG TABLET PO (06:31)
[2024-03-26] MEDS: PANTOPRAZOLE SODIUM 40 MG VIAL IV ×2 (06:31→19:42)
[2024-03-26] MEDS: CETIRIZINE HCL 10 MG TABLET PO (08:07)
[2024-03-26] MEDS: PREGABALIN 75 MG CAPSULE PO ×2 (08:07→20:32)
[2024-03-26] MEDS: FLUOXETINE HCL 20 MG CAPSULE PO (08:07)
[2024-03-26] MEDS: CARBIDOPA/LEVODOPA 25 MG-100 MG TABLET 2 TAB PO ×2 (08:07→20:32)
--- NOTE | 2024-03-26 09:00 | CM.NOTE ---
Rounds made with Dr. Patel, awaiting [facility] for consult to determine discharge planning. at bedside, verbalizing they would like to go home today if possible.
--- NOTE | 2024-03-26 09:00 | SWNOTE1 ---
Case management had a voicemail and [facility] will be here around 9:30-10:00. SW notified nursing.
--- NOTE | 2024-03-26 09:42 | SWNOTE1 ---
SW checked on pt, pt's and son Karthik were in room as well. Family aware hospice will be here between 9:30-10. Important Message from Medicare reviewed and discussed with patient's son, Karthik. Pt's son verbalized understanding and signed the form. Original given to patient's son and copy placed in patient?s chart.
--- NOTE | 2024-03-26 11:13 | SWNOTE1 ---
SW stopped in and checked on hospice and family. Family did ask about discharge and SW did stated that doctor is planning on discharging pt today. Pt's son, Karthik and his voiced they do still have some cleaning up and re-arranging to do in the home. SW did voice that pt is medically stable for discharge and the discharge can be later this evening if needed. Family in agreement for later discharge. SW let hospice nurse know that pt will need home oxygen delivered. SW to check back with family and hospice.
--- NOTE | 2024-03-26 12:14 | P.DS_ITS ---
DS: Providers Provider Date of admission: 03/24/24 20:11 Primary care physician: Emre Eduardo MD Admitting clinician: Shaikh Jorge Attending physician on admission: Shaikh Jorge Consults: 03/24/24 Consult to Dietitian Routine Reason for consultation: weight loss Has provider been notified: Yes 03/24/24 15:47 Occupational Therapy Eval and Treat Routine Reason for consultation: Ambulatory dysfunction/weakness Physical Therapy Eval and Treat Routine Reason for consultation: Ambulatory dysfunction/weakness 03/25/24 Consult to Wound Care Routine Consulting Provider: Alfredito Moreno Reason for consultation: wound on buttocks Has provider been notified: No 03/25/24 10:01 Consult to Hospice Routine Reason for consultation: End of life Care. Attending physician on discharge: Shaikh Jorge Discharging clinician: Shaikh Jorge Anticipated date of discharge: 03/26/24 DS: Diagnosis Discharge Diagnosis (1) Metabolic encephalopathy: Assessment and plan: More or less close to her baseline now. (2) Acute respiratory failure with hypoxia: Assessment and plan: Improved and requiring only 1 L O2 (3) Hypovolemic shock: Assessment and plan: BP stable. (4) Anemia due to acute blood loss: Assessment and plan: Hb improved after transfusion. (5) Upper GI bleed: Assessment and plan: No active/overt bleeding noted. (6) LUCIANA (acute kidney injury): Assessment and plan: good UO. No labs as patient is now enrolled in hospice. (7) Supratherapeutic INR: Assessment and plan: Received Vit K. (8) Generalized weakness: Assessment and plan: D/c home with home hospice. (9) Fracture of humerus: Assessment and plan: Pain control. Conservative care. Qualifiers: Encounter type: subsequent encounter Fracture alignment: displaced Fracture healing: with nonunion Fracture morphology: 2-part Fracture type: closed Humerus Location: surgical neck Laterality: left Qualified Code(s): S42.222K - 2-part displaced fracture of surgical neck of left humerus, subsequent encounter for fracture with nonunion (10) COPD (chronic obstructive pulmonary disease): Assessment and plan: Breathing well. No active wheezing. Qualifiers: COPD type: chronic bronchitis Chronic bronchitis type: simple Qualified Code(s): J41.0 - Simple chronic bronchitis (11) Alzheimer's dementia: Assessment and plan: Enrolled in hospice. Qualifiers: Alzheimer's disease onset: late onset Dementia severity: severe Dementia behavioral or psychological symptom: with mood disturbance Qualified Code(s): G30.1 - Alzheimer's disease with late onset; F02.C3 - Dementia in other diseases classified elsewhere, severe, with mood disturbance (12) Parkinson disease: Assessment and plan: Enrolled in hospice. WIll need her Sinemet Qualifiers: Dyskinesia presence: with dyskinesia Fluctuating manifestations: without fluctuating manifestations Qualified Code(s): G20.B1 - Parkinson's disease with dyskinesia, without mention of fluctuations (13) H/O malignant neoplasm of colon: Assessment and plan: s/p colectomy. (14) Permanent atrial fibrillation: Assessment and plan: HR controlled (15) Type 2 diabetes mellitus: Assessment and plan: C/w oral hypoglycemics. Qualifiers: Diabetes mellitus superintendent terminal insulin use: without half-way use Diabetes mellitus complication status: without complication Qualified Code(s): E11.9 - Type 2 diabetes mellitus without complications (16) HTN (hypertension): Assessment and plan: Hold anti hypertensives Qualifiers: Hypertension type: primary hypertension Qualified Code(s): I10 - Essential (primary) hypertension (17) Troponin I above reference range: Assessment and plan: No follow up needs as patient is enrolled in hospice DS: Summary Hospital Course Hospital Course: 83-year-old female who lives with her family had a fall about 2 weeks ago and ended up fracturing her humerus. Since her fall, patient has had progressive decline in function with increasing confusion, decreased consciousness and increasing generalized weakness and shortness of breath. Patient was brought in by her family for evaluation in ER and was found to have acute respiratory failure with hypoxia with pulse ox as low as 82%, hypovolemic shock secondary to blood loss anemia with hemoglobin of 5.4. Patient uses Coumadin because of his tory of A-fib and her INR was elevated at 5.47. Patient was admitted for further work up. She received 2 units of PRBC with improvement in her Hb and no concern noted for acute/overt bleeding. She remained very drowsy throughout the course of admission and had little to no PO intake due to her mental status. Given her age, co-morbidities, discussion was held with family and after careful review o f her medical hx, her previous wishes, family decided to pursue hospice care. Hospice was consulted and percussion instructor met with patient's family today. Patient will be discharged home with home hospice. Status at Discharge Functional status at discharge: bed bound Overall status at discharge: patient is not back to baseline Time Spent with Patient Time attestation: Total time spent providing and/or coordinating discharge services: Time spent: greater than 30 minutes Exam Constitutional Vital Signs, click to edit/add: Last Vital Signs Temp 97.7 F 03/26/24 07:51 Pulse 90 03/26/24 11:28 Resp 18 03/26/24 11:28 BP 97/57 03/26/24 11:28 Pulse Ox 97 03/26/24 11:28 O2 Del Method Nasal Cannula 03/26/24 11:15 O2 Flow Rate 1 03/26/24 11:15 FiO2 55 03/24/24 21:58 Documenting provider has reviewed patient's vital signs: yes General appearance: cooperative, lethargic and ill appearing Nutritional appearance: obese Respiratory Effort & inspection: able to speak in complete sentences and decreased respiratory effort Auscultation: diminished lung sounds Other: coarse breath sounds. Cardio Common normals: regular rate, S1 normal heart sound and S2 normal heart sound Rhythm: abnormal rhythm Extremity Common normals: normal to inspection and full ROM Neuro Common normals: moves all extremities Sensorium/orientation: lethargic Gait (neuro): unable to assess gait Psych Attitude: calm Thought process: confused DS: Data Data Completed and Pending Labs on day of discharge: Labs from last 24 hours 03/25/24 03/25/24 03/25/24 20:34 17:33 13:23 POC Glucose 229 H 247 H 247 H Preliminary micro results at discharge 03/24/24 13:50 Blood Culture Result 1 - Preliminary Blood - Right Hand Discharge Plan Discharge Disposition: Hospice - Home Condition: Good Discharge Medications: Continued carbidopa-levodopa 25-100 mg tablet 2 tab PO Q12H fluoxetine 20 mg capsule 20 mg PO DAILY levothyroxine 125 mcg tablet 125 mcg PO DAILY meloxicam 15 mg tablet 15 mg PO DAILY loratadine 10 mg tablet 10 mg PO Q24H pregabalin 75 mg capsule 75 mg PO Q12H albuterol sulfate 90 mcg/actuation HFA aerosol inhaler 2 puff INHALATION Q4H PRN (Reason: shortness of breath or wheezing) Discontinued aspirin [Aspirin Childrens] 81 mg tablet,chewable 81 mg PO DAILY furosemide 40 mg tablet 40 mg PO DAILY glipizide 5 mg tablet 2.5 mg PO DAILY lisinopril 10 mg tablet 10 mg PO DAILY metformin 500 mg tablet extended release 24 hr 500 mg PO DAILY pioglitazone 45 mg tablet 45 mg PO DAILY simvastatin 20 mg tablet 20 mg PO BEDTIME fenofibrate nanocrystallized 145 mg tablet 145 mg PO BEDTIME amlodipine 2.5 mg tablet 2.5 mg PO DAILY warfarin 1 mg tablet 1 mg PO DAILY nitroglycerin 0.4 mg tablet, sublingual 0.4 mg sublingual Q5M PRN (Reason: chest pain) Activity: increase activity as tolerated Diet: advance to your usual diet Print Language: Belarusian Forms: Portal Instructions
--- NOTE | 2024-03-26 12:33 | SWNOTE1 ---
[facility] left information on chart and [facility] transportation is set for 9:30pm, family is aware as hospice had informed them. Nursing is aware as well. RAMILA faxed over dc med rec to [facility].
[2024-03-26 20:43] LABS: Glucometer 337 mg/dL (74-106)
[2024-03-26] MEDS: INSULIN ASPART 300 UNIT/3 ML PEN SUBQ (20:59)
== END 2024-03-26 23:20 | disposition hospice, home (50) | DRG 811 ==
LOC: ER 17:02 → ICU 20:14
PROVIDERS: Physician Assistant; Admitting Provider Internal Medicine; Emergency Provider Emergency Medicine; PCP Family Medicine; Visit Provider Internal Medicine
DX: D62 Acute posthemorrhagic anemia (principal); G93.41 Metabolic encephalopathy; R57.1 Hypovolemic shock; J96.01 Acute respiratory failure with hypoxia; K92.2 Gastrointestinal hemorrhage, unspecified; N17.9 Acute kidney failure, unspecified; F02.C3 Dementia in other diseases classified elsewhere, severe, with mood disturbance; I48.21 Permanent atrial fibrillation; S42.222K 2-part displaced fracture of surgical neck of left humerus, subsequent encounter for fracture with nonunion; R79.1 Abnormal coagulation profile; J41.0 Simple chronic bronchitis; R53.1 Weakness; G30.1 Alzheimer's disease with late onset; G20.B1 Parkinson's disease with dyskinesia, without mention of fluctuations; E11.9 Type 2 diabetes mellitus without complications; I10 Essential (primary) hypertension; R79.89 Other specified abnormal findings of blood chemistry; L89.329 Pressure ulcer of left buttock, unspecified stage; E66.9 Obesity, unspecified; Z68.32 Body mass index [BMI] 32.0-32.9, adult; L89.319 Pressure ulcer of right buttock, unspecified stage; W19.XXXD Unspecified fall, subsequent encounter; Z79.84 Long term (current) use of oral hypoglycemic drugs; Z79.01 Long term (current) use of anticoagulants; Z79.82 Long term (current) use of aspirin; Z90.49 Acquired absence of other specified parts of digestive tract; Z85.038 Personal history of other malignant neoplasm of large intestine; Z79.899 Other long term (current) drug therapy; Z79.890 Hormone replacement therapy; Z66 Do not resuscitate
CPT/HCPCS: 36415; 36600; 51702; 70450; 71045; 80053; 81001; 82140; 82800; 82805; 82948; 83605; 83880; 84484; 85014; 85018; 85025; 85610; 86850; 86900; 86901; 86923; 87040; 87077; 87086; 87150; 87186; 93005; 94640; 94761; 96374; 96375; 97163; 97165; 99285; J0696; J3430; P9016

== ENCOUNTER 2024-03-31 02:38 | Outpatient (RCR) | payer MEDICARE, OTHER, SELFPAY | END 2024-04-30 23:34 | disposition home or self-care (01) | LOC: MM 02:38 | PROVIDERS: PCP Family Medicine; Visit Provider Internal Medicine | DX: Z51.81 Encounter for therapeutic drug level monitoring (principal); Z79.01 Long term (current) use of anticoagulants; I48.20 Chronic atrial fibrillation, unspecified ==

== ENCOUNTER 2024-06-01 06:04 | Outpatient (RCR) | payer MEDICARE, OTHER, SELFPAY | END 2024-06-30 09:10 | disposition home or self-care (01) | LOC: MM 06:04 | PROVIDERS: PCP Family Medicine; Visit Provider Internal Medicine | DX: Z51.81 Encounter for therapeutic drug level monitoring (principal); Z79.01 Long term (current) use of anticoagulants; I48.20 Chronic atrial fibrillation, unspecified ==

== ENCOUNTER 2024-07-02 01:50 | Outpatient (RCR) | payer MEDICARE, OTHER, SELFPAY | END 2024-07-31 14:31 | disposition home or self-care (01) | LOC: MM 01:50 | PROVIDERS: PCP Family Medicine; Visit Provider Internal Medicine | DX: Z51.81 Encounter for therapeutic drug level monitoring (principal); Z79.01 Long term (current) use of anticoagulants; I48.20 Chronic atrial fibrillation, unspecified ==

== ENCOUNTER 2024-08-03 00:36 | Outpatient (RCR) | payer MEDICARE, OTHER, SELFPAY | END 2024-08-28 10:21 | disposition home or self-care (01) | LOC: MM 00:36 | PROVIDERS: PCP Family Medicine; Visit Provider Internal Medicine | DX: Z51.81 Encounter for therapeutic drug level monitoring (principal); Z79.01 Long term (current) use of anticoagulants; I48.20 Chronic atrial fibrillation, unspecified ==

== ENCOUNTER 2024-08-29 12:43 | Outpatient (RCR) | payer MEDICARE, OTHER, SELFPAY | END 2024-09-25 12:44 | disposition home or self-care (01) | LOC: MM 12:43 | PROVIDERS: PCP Family Medicine; Visit Provider Internal Medicine | DX: Z51.81 Encounter for therapeutic drug level monitoring (principal); Z79.01 Long term (current) use of anticoagulants ==

== ENCOUNTER 2024-09-29 03:59 | Outpatient (RCR) | payer MEDICARE, OTHER, SELFPAY | END 2024-10-28 14:33 | disposition home or self-care (01) | LOC: MM 03:59 | PROVIDERS: PCP Family Medicine; Visit Provider Internal Medicine | DX: Z51.81 Encounter for therapeutic drug level monitoring (principal); Z79.01 Long term (current) use of anticoagulants; I48.20 Chronic atrial fibrillation, unspecified ==

== ENCOUNTER 2024-10-29 04:51 | Outpatient (RCR) | payer MEDICARE, OTHER, SELFPAY | END 2024-11-27 15:04 | disposition home or self-care (01) | LOC: MM 04:51 | PROVIDERS: PCP Family Medicine; Visit Provider Internal Medicine | DX: Z51.81 Encounter for therapeutic drug level monitoring (principal); Z79.01 Long term (current) use of anticoagulants; I48.20 Chronic atrial fibrillation, unspecified ==

== ENCOUNTER 2024-11-29 07:56 | Outpatient (RCR) | payer MEDICARE, OTHER, SELFPAY | END 2024-12-24 14:49 | disposition home or self-care (01) | LOC: MM 07:56 | PROVIDERS: PCP Family Medicine; Visit Provider Internal Medicine | DX: Z51.81 Encounter for therapeutic drug level monitoring (principal); Z79.01 Long term (current) use of anticoagulants ==